=== PATIENT | male | born 2000 | race Caucasian/White ===

== ENCOUNTER 2024-07-15 08:04 | Outpatient (OUT) | payer BC, SELFPAY ==
--- NOTE | 2024-07-15 08:09 | CA_ITS ---
Patient Name: CLOVER JEAN MR#: [id number] : 2000 Exam Date: 07/15/2024 Ordering Doctor: DR Michelle Shipley M.D. ECHOCARDIOGRAM REPORT PROCEDURE: CA ECHO DOPPLER COMPLETE INDICATIONS: Syncope COMPARISON: None. DESCRIPTION: COMPLETE ECHOCARDIOGRAM Real-time transthoracic echocardiography with 2D, M-mode, spectral and color flow Doppler performed. QUALITY: Technical quality was good. LEFT VENTRICLE: Normal chamber size. Normal left ventricular wall thickness. Global left ventricular systolic function is normal. LV EF: Estimated left ventricular ejection fraction is 60% DIASTOLIC: Normal diastolic function. ATRIAL SEPTUM: LEFT ATRIUM: Normal chamber size. RIGHT ATRIUM: Normal chamber size. RIGHT VENTRICLE: Normal chamber size. Normal right ventricular systolic function. TRICUSPID VALVE: Normal mobility and thickness. No stenosis with trivial regurgitation. No evidence of pulmonary hypertension. RVSP 20 mmHg MITRAL VALVE: Normal mobility and thickness. No evidence of mitral valve stenosis. There is no mitral annular calcification. Trivial mitral regurgitation. AORTIC VALVE: Normal trileaflet appearance. Normal leaflet mobility. No evidence of aortic valve stenosis. No aortic regurgitation. AORTIC ROOT: Normal diameter and appearance. PULMONIC VALVE: Normal thickness and mobility. No stenosis. Trivial regurgitation. PERICARDIUM: Trivial pericardial effusion. IVC: Collapses with inspirations. Normal size. PLEURA: CONCLUSION: 1. Normal left ventricular size and systolic function. LVEF is estimated at 60%. 2. Normal right ventricular size and systolic function. 3. Normal diastolic function. 4. No significant valvular dysfunction. 5. Normal right-sided pressures. 6. Trivial pericardial effusion. Adult Echocardiography Procedure Report Left Ventricle LVEDD (3.7 - 5.6 cm): 5.07 cm LVESD (2.2 - 4.0 cm): 3.66 cm LVIVS thickness (0.6 - 1.2 cm): 0.88 cm LVPW thickness (0.5 - 1.0 cm): 1.02 cm e': 0.15 m/s E - e': 3.68 LVOT Max Gradient: 2.14 mm[Hg] LVOT Area (cm2): 0.73 m/s Peak Velocity (LVOT): 0.73 m/s Mean Velocity (LVOT): 0.52 m/s LVOT Diameter 2.25 cm Left Ventricular Ejection Fraction: 60 % Left Atrium LA Volume Index (2D A2C): 29.23 ml/m2 Left Atrium Systolic Dimension: 3.13 cm Mitral Valve MV E to A Ratio: 1.96 Mitral Valve A-Wave Peak Velocity: 0.28 m/s Mitral Valve E-Wave Peak Velocity: 0.55 m/s Right Ventricle RV Internal Diastolic Dimension: 3.67 cm Aorta AO Root Diam: 3.13 cm Ascending Ao Diam: 2.46 cm Aortic Valve AoV Area (Peak Tariq): 3.18 cm2, 3.18 cm2 AoV Area (VTI): 3.18 cm2, 3.18 cm2 Peak Velocity(Antegrade Flow): 0.91 m/s Peak Gradient(Antegrade Flow): 3.31 mm[Hg] Mean Velocity(Antegrade Flow): 0.66 m/s Mean Gradient(Antegrade Flow): 1.99 mm[Hg] Velocity Time Integral: 19.40 cm Tricuspid Valve Peak Velocity (Regurgitant Flow): 1.95 m/s, 2.06 m/s Pulmonic Valve Mean Gradient: 2.04 mm[Hg], 1.72 mm[Hg] Mean Velocity: 0.67 m/s, 0.63 m/s Peak Velocity: 0.86 m/s Peak Gradient: 3.21 mm[Hg], 2.67 mm[Hg] Right Atrium Right Atrium Systolic Pressure: 66.19 ml, 66.19 ml Dictated by: Emory Jimenez M.D. on 07/15/2024 at 19:38 Approved by: Emory Jimenez M.D. on 07/15/2024 at 19:41
--- NOTE | 2024-07-15 08:09 | ECG_ITS ---
The [facility] Test Date: 2024-07-15 Pat Name: CLOVER JEAN Department: Room: - Gender: Male Wrapper Hand: : 2000 Requested By: ION CHONG Order Number: [id number] Reading MD: MAYA LE Measurements Intervals [place] Rate: 54 P: 62 IN: 162 QRS: 89 QRSD: 105 T: 72 QT: 391 QTc: 371 Interpretive Statements SINUS BRADYCARDIA WITH SINUS ARRHYTHMIA EARLY REPOLARIZATION [ST ELEVATION WITH NORMALLY INFLECTED T WAVE] Electronically Signed On 07-15-2024 19:41:49 EST by MAYA LE
== END 2024-07-15 08:05 | disposition home or self-care (01) ==
LOC: CARD 08:04
PROVIDERS: PCP Family Medicine; Visit Provider Family Medicine
DX: R55 Syncope and collapse (principal)
CPT/HCPCS: 93005; 93306

== ENCOUNTER 2024-11-19 08:16 | Emergency (ER) | payer BC, SELFPAY ==
[2024-11-19 08:19] VITALS: BP 112/82; PULSE 87; TEMP 36.6; O2SAT 98; BMI 25.7
--- NOTE | 2024-11-19 08:26 | CT_ITS ---
The [address] [address] Patient Name: CLOVER JEAN MRN: [id number] date: 2000 Sex: M Assigned Patient Location: ED.MAIN Current Patient Location: ER Accession/Order Number: [id number] Exam Date: 11/19/2024 09:23 Report Date: 11/19/2024 09:47 At the request of: BRUNILDA COHN DO Procedure: CT cervical spine wo con CLINICAL DATA: Throbbing headache for the past [address] BRAIN WITHOUT CONTRAST: COMPARISON: None TECHNIQUE: Contiguous axial unenhanced images were obtained through the brain. This CT exam was performed using one or more following dose reduction techniques: Automated exposure control, adjustment of the mA and/or kV according to patient size, or use of iterative reconstruction technique. FINDINGS: The ventricles are normal in size and position. There are no areas of abnormal attenuation. There is no hemorrhage, mass effect or extra-axial collections. The imaged paranasal sinuses and mastoid air cells are clear. CT/CT head/brain wo con IMPRESSION: NO ACUTE INTRACRANIAL ABNORMALITY. CTA OF THE [place] WITH CONTRAST COMPARISON: None Spiral images were obtained through the [place] following 100 mL of Omnipaque 350. Sagittal, coronal and 3-D volume rendered reconstructions were reviewed. This CT exam was performed using one or more following dose reduction techniques: Automated exposure control, adjustment of the mA and/or kV according to patient size, or use of iterative reconstruction technique. The right vertebral artery tapers slightly before the confluence. The imaged vertebral, basilar and posterior cerebral arteries are otherwise unremarkable. The carotid siphons are patent. The anterior and middle cerebral arteries are within normal limits for caliber, without focal stenosis or suspected thrombosis. No aneurysms are identified. The dural venous sinuses are patent. IMPRESSION: NO SIGNIFICANT VASCULAR FINDINGS. CT CERVICAL SPINE WITHOUT CONTRAST WITH 3D RECONSTRUCTIONS: COMPARISON: None TECHNIQUE: Spiral axial unenhanced images were obtained through the cervical spine. Sagittal, coronal and 3D volume-rendered reconstructions were also reviewed. This CT exam was performed using one or more following dose reduction techniques: Automated exposure control, adjustment of the mA and/or kV according to patient size, or use of iterative reconstruction technique. FINDINGS: There is subtle levoscoliotic curvature. Alignment is maintained in the sagittal plane. No fractures are identified. There is minor asymmetric hypertrophy toward the right neural foramen at C2-3. There is associated mild to moderate foraminal encroachment. At C3-4, there is mild disco-osteophytic bulging which is asymmetric toward the right. There is additional mild to moderate foraminal encroachment at that site. The atlantoaxial relationship is maintained. No prevertebral soft tissue swelling is seen. [place] cervical lymph nodes are present. The upper imaged lungs show mild scarring. IMPRESSION: MINOR DEGENERATIVE CHANGES. NO ACUTE BONY INJURY. Impression dictated by: Edith Dc M.D.11/19/2024 9:47 AM Dictation Location: [place] [address] Electronically authenticated by: [id number] Y Date: 11/19/2024 09:47
--- NOTE | 2024-11-19 08:26 | CT_ITS ---
The [address] [address] Patient Name: CLOVER JEAN MRN: [id number] date: 2000 Sex: M Assigned Patient Location: ED.MAIN Current Patient Location: ER Accession/Order Number: [id number] Exam Date: 11/19/2024 09:23 Report Date: 11/19/2024 09:47 At the request of: BRUNILDA COHN DO Procedure: CT cervical spine wo con CLINICAL DATA: Throbbing headache for the past [address] BRAIN WITHOUT CONTRAST: COMPARISON: None TECHNIQUE: Contiguous axial unenhanced images were obtained through the brain. This CT exam was performed using one or more following dose reduction techniques: Automated exposure control, adjustment of the mA and/or kV according to patient size, or use of iterative reconstruction technique. FINDINGS: The ventricles are normal in size and position. There are no areas of abnormal attenuation. There is no hemorrhage, mass effect or extra-axial collections. The imaged paranasal sinuses and mastoid air cells are clear. CT/CT cervical spine wo con IMPRESSION: NO ACUTE INTRACRANIAL ABNORMALITY. CTA OF THE [place] WITH CONTRAST COMPARISON: None Spiral images were obtained through the [place] following 100 mL of Omnipaque 350. Sagittal, coronal and 3-D volume rendered reconstructions were reviewed. This CT exam was performed using one or more following dose reduction techniques: Automated exposure control, adjustment of the mA and/or kV according to patient size, or use of iterative reconstruction technique. The right vertebral artery tapers slightly before the confluence. The imaged vertebral, basilar and posterior cerebral arteries are otherwise unremarkable. The carotid siphons are patent. The anterior and middle cerebral arteries are within normal limits for caliber, without focal stenosis or suspected thrombosis. No aneurysms are identified. The dural venous sinuses are patent. IMPRESSION: NO SIGNIFICANT VASCULAR FINDINGS. CT CERVICAL SPINE WITHOUT CONTRAST WITH 3D RECONSTRUCTIONS: COMPARISON: None TECHNIQUE: Spiral axial unenhanced images were obtained through the cervical spine. Sagittal, coronal and 3D volume-rendered reconstructions were also reviewed. This CT exam was performed using one or more following dose reduction techniques: Automated exposure control, adjustment of the mA and/or kV according to patient size, or use of iterative reconstruction technique. FINDINGS: There is subtle levoscoliotic curvature. Alignment is maintained in the sagittal plane. No fractures are identified. There is minor asymmetric hypertrophy toward the right neural foramen at C2-3. There is associated mild to moderate foraminal encroachment. At C3-4, there is mild disco-osteophytic bulging which is asymmetric toward the right. There is additional mild to moderate foraminal encroachment at that site. The atlantoaxial relationship is maintained. No prevertebral soft tissue swelling is seen. [place] cervical lymph nodes are present. The upper imaged lungs show mild scarring. IMPRESSION: MINOR DEGENERATIVE CHANGES. NO ACUTE BONY INJURY. Impression dictated by: Edith Dc M.D.11/19/2024 9:47 AM Dictation Location: [place] [address] Electronically authenticated by: [id number] Y Date: 11/19/2024 09:47
--- OUTSIDE RECORDS SUMMARY | 2024-11-19 08:31 | XMS_ITS | CCD ---
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 - 36.5 g/dL [facility] MCV (RBC) [Entitic vol] 88.5 fL 79.0 - 94.5 fL [facility] Monocytes (Bld) [#/Vol] 0.99 10*3/uL High 0.24 - 0.93 K/uL [facility] Monocytes/100 WBC (Bld) 14.0 % [facility] Neutrophils (Bld) [#/Vol] 3.76 10*3/uL 1.57 - 6.19 K/uL [facility] Nucleated RBC/100 WBC (Bld) [Ratio] 0.0 % NINF [facility] Platelet mean volume (Bld) [Entitic vol] 9.0 fL 8.7 - 12.3 fL [facility] Platelets (Bld) [#/Vol] 226 10*3/uL 146 - 337 K/uL [facility] RBC (Bld) [#/Vol] 4.70 10*6/uL [facility] Segmented neutrophils/100 WBC (Bld) 53.1 % [facility] WBC (Bld) [#/Vol] 7.09 10*3/uL 3.73 - 10. 10 K/uL [facility] Basophils (Bld) [#/Vol] 0.06 10*3/uL Normal 0.00-0.09 [facility] Comment on above: Performed By: #### L [id number] #### [facility] (DEFAULT) [address] [place] [address] 40998 Basophils/100 WBC (Bld) 0.8 % Normal [facility] Comment on above: Performed By: #### L [id number] #### [facility] (DEFAULT) [address] [place] [address] 28230 DIFF STATUS Electronic Differential Normal [facility] Comment on above: Performed By: #### L [id number] #### [facility] (DEFAULT) [address] [address] Eosinophils (Bld) [#/Vol] 0.23 10*3/uL Normal 0.00-0.48 [facility] Comment on above: Performed By: #### L [id number] #### [facility] (DEFAULT) [address] [address] Eosinophils/100 WBC (Bld) 3.2 % Normal [facility] Comment on above: Performed By: #### L [id number] #### [facility] (DEFAULT) [address] [address] Hematocrit (Bld) [Volume fraction] 41.6 % Normal 39.6-48.8 [facility] Comment on above: Performed By: #### L [id number] #### [facility] (DEFAULT) [address] [address] Hemoglobin (Bld) [Mass/Vol] 13.8 g/dL Normal 13.4-16.8 [facility] Comment on above: Performed By: #### L [id number] #### [facility] (DEFAULT) [address] [address] Immature Grans % 1.1 % Normal [facility] Comment on above: Performed By: #### L [id number] #### [facility] (DEFAULT) [address] [address] Immature Grans Absolute 0.08 K/uL High <=0.07 [facility] Comment on above: Performed By: #### L [id number] #### [facility] (DEFAULT) [address] [address] Lymphocytes (Bld) [#/Vol] 1.97 10*3/uL Normal 0.83-3.57 [facility] Comment on above: Performed By: #### L [id number] #### U [facility] (DEFAULT) [address] [place] [address] 23331 Lymphocytes/100 WBC (Bld) 27.8 % Normal [facility] Comment on above: Performed By: #### L [id number] #### U [facility] (DEFAULT) [address] [place] [address] 58765 MCV (RBC) [Entitic vol] 88.5 fL Normal 79.0-94.5 [facility] Comment on above: Performed By: #### L [id number] #### [facility] (DEFAULT) [address] [place] [address] 87064 Mean Cell Hgb 29.4 pg Normal 26.1-33.3 [facility] Comment on above: Performed By: #### L [id number] #### [facility] (DEFAULT) [address] [place] [address] 80120 Mean Cell Hgb Conc 33.2 g/dL Normal 31.9-36.5 [facility] Comment on above: Performed By: #### L [id number] #### [facility] (DEFAULT) [address] [place] [address] 73002 Monocytes (Bld) [#/Vol] 0.99 10*3/uL High 0.24-0.93 [facility] Comment on above: Performed By: #### L [id number] #### [facility] (DEFAULT) [address] [place] [address] 26931 Monocytes/100 WBC (Bld) 14.0 % Normal [facility] Comment on above: Performed By: #### L [id number] #### [facility] (DEFAULT) [address] [place] [address] 00841 Nucleated RBC 0.0 /100 WBC Normal <=0.2 [facility] Comment on above: Performed By: #### L [id number] #### [facility] (DEFAULT) [address] [place] [address] 72609 Platelet mean volume (Bld) [Entitic vol] 9.0 fL Normal 8.7-12.3 [facility] Comment on above: Performed By: #### L [id number] #### [facility] (DEFAULT) [address] [place] [address] 22117 Platelets (Bld) [#/Vol] 226 10*3/uL Normal 146-337 [facility] Comment on above: Performed By: #### L [id number] #### [facility] (DEFAULT) [address] [place] [address] 92183 RBC (Bld) [#/Vol] 4.70 10*6/uL Normal 4.38-5.83 [facility] Comment on above: Performed By: #### L [id number] #### [facility] (DEFAULT) [address] [place] [address] 41896 RBC Distribution 12.1 % Normal 10.9-14.3 [facility] Comment on above: Performed By: #### L [id number] #### [facility] (DEFAULT) [address] [place] [address] 88594 Segs + Bands Auto 53.1 % Normal [facility] Comment on above: Performed By: #### L [id number] #### [facility] (DEFAULT) [address] [place] [address] 71241 Segs + Bands,Absolute Auto 3.76 K/uL Normal 1.57-6.19 [facility] Comment on above: Performed By: #### L [id number] #### [facility] (DEFAULT) [address] [place] [address] 75987 WBC (Bld) [#/Vol] 7.09 10*3/uL Normal 3.73-10.10 [facility] Comment on above: Performed By: #### L [id number] #### [facility] (DEFAULT) [address] [address] CHEM 7 (LYTES,BUN,CREA,GLUC) on 05-27-2024 Anion gap [Moles/Vol] 13 mmol/L 7 - 17 mmol/L [facility] Chloride [Moles/Vol] 106 mmol/L 98 - 108 mmol/L [facility] CO2 [Moles/Vol] 24 mmol/L 21 - 31 mmol/L [facility] Creatinine [Mass/Vol] 1.01 mg/dL 0.70 - 1.30 mg/dL [facility] eGFR, CKD-EPI, Male - PINF [facility] Comment on above: Reported eGFR is bas ed on the CKD-EPI 2020 equation using creatinine, age, and sex. Glucose [Mass/Vol] 101 mg/dL High 70 - 99 mg/dL [facility] Interpretation and review of laboratory results Abnormal [facility] Osmolality Calc [Osmolality] 289 [facility] Potassium [Moles/Vol] 3.9 mmol/L 3.5 - 5.0 mmol/L [facility] Sodium [Moles/Vol] 139 mmol/L 135 - 145 mmol/L [facility] Urea nitrogen [Mass/Vol] 8 mg/dL 7 - 25 mg/dL [facility] Urea nitrogen/Creatinine [Mass ratio] 8 mg/mg [facility] Anion gap [Moles/Vol] 13 mmol/L Normal 7-17 [facility] Comment on above: Performed By: #### C HM7 #### [facility] (DEFAULT) [address] [place] [address] 56151 Chloride [Moles/Vol] 106 mmol/L Normal 98-108 [facility] Comment on above: Performed By: #### C HM7 #### [facility] (DEFAULT) [address] [place] [address] CO2 [Moles/Vol] 24 mmol/L Normal 21-31 [facility] Comment on above: Performed By: #### C HM7 #### [facility] (DEFAULT) [address] [place] [address] Creatinine [Mass/Vol] 1.01 mg/dL Normal 0.70-1.30 [facility] Comment on above: Performed By: #### C HM7 #### [facility] (DEFAULT) [address] [place] [address] 41287 eGFR, CKD-EPI, Male > Normal >=60 [facility] Comment on above: Result Comment: Repo rted eGFR is based on the CKD-EPI 1 equation using creatinine, age, and sex. Performed By: #### C HM7 #### [facility] (DEFAULT) [address] [place] [address] 56550 Glucose [Mass/Vol] 101 mg/dL High 70-99 [facility] Comment on above: Performed By: #### C HM7 #### U [facility] (DEFAULT) [address] [place] [address] 03322 Osmolality [Osmolality] 289 mosm/kg Normal 278-305 [facility] Comment on above: Performed By: #### C HM7 #### [facility] (DEFAULT) [address] [place] [address] 90404 Potassium [Moles/Vol] 3.9 mmol/L Normal 3.5-5.0 [facility] Comment on above: Performed By: #### C HM7 #### [facility] (DEFAULT) [address] [place] [address] 37790 Sodium [Moles/Vol] 139 mmol/L Normal 135-145 [facility] Comment on above: Performed By: #### C HM7 #### U [facility] (DEFAULT) [address] [place] [address] 32088 Urea nitrogen [Mass/Vol] 8 mg/dL Normal 7-25 [facility] Comment on above: Performed By: #### C HM7 #### [facility] (DEFAULT) [address] [place] [address] 52254 Urea nitrogen/Creatinine [Mass ratio] 8 mg/mg Normal [facility] Comment on above: Performed By: #### C HM7 #### [facility] (DEFAULT) [address] [place] [address] 72662 VANCOMYCIN LEVEL, TROUGH (VT E DRUG LEVEL)on 05-27-2024 Interpretation and review of laboratory results Abnormal [facility] Vancomycin trough [Mass/Vol] 6.2 ug/mL Low Therapeutic Range: 10.0-20.0 mcg/mL mcg/mL [facility] Vancomycin, Trough 6.2 mcg/mL Low Therapeut ic Range: 10.0-20.0 mcg/mL [facility] Comment on above: Order Comment: Pleas e draw level at specified interval PRIOR to next dose. Performed By: #### V ANCTR #### [facility] (DEFAULT) [address] [address] ANAEROBE CULTUREon 4 Bacteria identified Cx Nom (Unsp spec) No anaerobic growth Normal [facility] Comment on above: Order Comment: Colle ct fluids or tissues in a sterile container. If collecting swabs, must be collected in a Port-A-Cul tube. Performed By: #### L [id number] #### [facility] (DEFAULT) [address] [address] BACTERIAL CULTURE AND DIRECT SMEAR, LESION, TISSUE, DEVICEon 05-26-2024 Clindamycin [Susceptibility] 0.25 ug/mL Invalid Interpretation Code [facility] Comment on above: Performed By: #### L [id number] #### [facility] (DEFAULT) [address] [address] Oxacillin [Susceptibility] by Minimum inhibitory concentration (SINGH) 0.5 ug/mL Invalid Interpretation Code [facility] Comment on above: Performed By: #### L [id number] #### [facility] (DEFAULT) [address] [address] rifAMPin [Susceptibility] by Minimum inhibitory concentration (SINGH) <= Invalid Interpretation Code [facility] Comment on above: Result Comment: Rifa mpin must never be used as monotherapy for Staphylococcal infection because of the rapid emergence of resistance. Performed By: #### L [id number] #### [facility] (DEFAULT) [address] [address] Tetracycline [Susceptibility] <= Invalid Interpretation Code [facility] Comment on above: Result Comment: Doxy cycline/minocycline S. aureus susceptibility can be inferred from the tetracycline SINGH when tetracycline susceptible Performed By: #### L [id number] #### [facility] (DEFAULT) [address] [place] [address] 71639 Trimethoprim+Sulfam ethoxazole [Susceptibility] <= Invalid Interpretation Code [facility] Comment on above: Performed By: #### L [id number] #### [facility] (DEFAULT) [address] [place] [address] 33434 C REACTIVE PROTEINon 024 CRP High sensitivity method [Mass/Vol] 56.40 mg/L High NINF - 10.00 mg/L [facility] Interpretation and review of laboratory results Abnormal [facility] CRP [Mass/Vol] 56.40 mg/L High <10.00 [facility] Comment on above: Performed By: #### C RP #### [facility] (DEFAULT) [address] [address] CBC AND ELECTRONIC DIFFon Basophils (Bld) [#/Vol] 0.09 10*3/uL 0.00 - 0.09 K/uL [facility] Basophils/100 WBC (Bld) 1.2 % [facility] Differential cell count method Nom (Bld) Electronic Differential [facility] Eosinophils (Bld) [#/Vol] 0.26 10*3/uL 0.00 - 0.48 K/uL [facility] Eosinophils/100 WBC (Bld) 3.5 % [facility] Erythrocyte distribution width (RBC) [Ratio] 12.1 % 10.9 - 14.3 % [facility] Hematocrit (Bld) [Volume fraction] 42.0 % 39.6 - 48.8 % [facility] Hemoglobin (Bld) [Mass/Vol] 14.2 g/dL 13.4 - 16.8 g/dL [facility] Immature granulocytes (Bld) [#/Vol] K/uL NINF - 0.07 K/uL [facility] Immature granulocytes/100 WBC (Bld) 0.3 % [facility] Interpretation and review of laboratory results Abnormal [facility] Lymphocytes (Bld) [#/Vol] 2.14 10*3/uL 0.83 - 3.57 K/uL [facility] Lymphocytes/100 WBC (Bld) 29.1 % [facility] MCH (RBC) [Entitic mass] 29.6 pg 26.1 - 33.3 pg [facility] MCHC (RBC) [Mass/Vol] 33.8 g/dL 31.9 - 36.5 g/dL [facility] MCV (RBC) [Entitic vol] 87.7 fL 79.0 - 94.5 fL [facility] Monocytes (Bld) [#/Vol] 0.98 10*3/uL High 0.24 - 0.93 K/uL [facility] Monocytes/100 WBC (Bld) 13.3 % [facility] Neutrophils (Bld) [#/Vol] 3.86 10*3/uL 1.57 - 6.19 K/uL [facility] Nucleated RBC/100 WBC (Bld) [Ratio] 0.0 % [facility] Platelet mean volume (Bld) [Entitic vol] 9.2 fL 8.7 - 12.3 fL [facility] Platelets (Bld) [#/Vol] 233 10*3/uL 146 - 337 K/uL [facility] RBC (Bld) [#/Vol] 4.79 10*6/uL [facility] Segmented neutrophils/100 WBC (Bld) 52.6 % [facility] WBC (Bld) [#/Vol] 7.35 10*3/uL 3.73 - 10. 10 K/uL [facility] Basophils (Bld) [#/Vol] 0.09 10*3/uL Normal 0.00-0.09 [facility] Comment on above: Performed By: #### L [id number] #### [facility] (DEFAULT) [address] [place] [address] 41486 Basophils/100 WBC (Bld) 1.2 % Normal [facility] Comment on above: Performed By: #### L [id number] #### [facility] (DEFAULT) [address] [place] [address] 64633 DIFF STATUS Electronic Differential Normal [facility] Comment on above: Performed By: #### L [id number] #### [facility] (DEFAULT) [address] [place] [address] 04881 Eosinophils (Bld) [#/Vol] 0.26 10*3/uL Normal 0.00-0.48 [facility] Comment on above: Performed By: #### L [id number] #### [facility] (DEFAULT) [address] [place] [address] 14097 Eosinophils/100 WBC (Bld) 3.5 % Normal [facility] Comment on above: Performed By: #### L [id number] #### [facility] (DEFAULT) [address] [place] [address] 05751 Hematocrit (Bld) [Volume fraction] 42.0 % Normal 39.6-48.8 [facility] Comment on above: Performed By: #### L [id number] #### [facility] (DEFAULT) [address] [place] [address] 77501 Hemoglobin (Bld) [Mass/Vol] 14.2 g/dL Normal 13.4-16.8 [facility] Comment on above: Performed By: #### L [id number] #### [facility] (DEFAULT) [address] [address] Immature Grans % 0.3 % Normal [facility] Comment on above: Performed By: #### L [id number] #### U [facility] (DEFAULT) [address] [place] [address] 81068 Immature Grans Absolute < Normal <=0.07 [facility] Comment on above: Performed By: #### L [id number] #### [facility] (DEFAULT) [address] [place] [address] 08894 Lymphocytes (Bld) [#/Vol] 2.14 10*3/uL Normal 0.83-3.57 [facility] Comment on above: Performed By: #### L [id number] #### [facility] (DEFAULT) [address] [address] Lymphocytes/100 WBC (Bld) 29.1 % Normal [facility] Comment on above: Performed By: #### L [id number] #### [facility] (DEFAULT) [address] [address]24[address] MCV (RBC) [Entitic vol] 87.7 fL Normal 79.0-94.5 [facility] Comment on above: Performed By: #### L [id number] #### [facility] (DEFAULT) [address] [address] Mean Cell Hgb 29.6 pg Normal 26.1-33.3 [facility] Comment on above: Performed By: #### L [id number] #### [facility] (DEFAULT) [address] [address] Mean Cell Hgb Conc 33.8 g/dL Normal 31.9-36.5 [facility] Comment on above: Performed By: #### L [id number] #### [facility] (DEFAULT) [address] [address] Monocytes (Bld) [#/Vol] 0.98 10*3/uL High 0.24-0.93 [facility] Comment on above: Performed By: #### L [id number] #### [facility] (DEFAULT) [address] [address] Monocytes/100 WBC (Bld) 13.3 % Normal [facility] Comment on above: Performed By: #### L [id number] #### [facility] (DEFAULT) [address] [place] [address] 79191 Nucleated RBC 0.0 /100 WBC Normal <=0.2 [facility] Comment on above: Performed By: #### L [id number] #### U [facility] (DEFAULT) [address] [address] Platelet mean volume (Bld) [Entitic vol] 9.2 fL Normal 8.7-12.3 [facility] Comment on above: Performed By: #### L [id number] #### [facility] (DEFAULT) [address] [address] Platelets (Bld) [#/Vol] 233 10*3/uL Normal 146-337 [facility] Comment on above: Performed By: #### L [id number] #### [facility] (DEFAULT) [address] [address] RBC (Bld) [#/Vol] 4.79 10*6/uL Normal 4.38-5.83 [facility] Comment on above: Performed By: #### L [id number] #### [facility] (DEFAULT) [address] [address] RBC Distribution 12.1 % Normal 10.9-14.3 [facility] Comment on above: Performed By: #### L [id number] #### [facility] (DEFAULT) [address] [address] Segs + Bands Auto 52.6 % Normal [facility] Comment on above: Performed By: #### L [id number] #### [facility] (DEFAULT) [address] [address] Segs + Bands,Absolute Auto 3.86 K/uL Normal 1.57-6.19 [facility] Comment on above: Performed By: #### L [id number] #### [facility] (DEFAULT) [address] [address] WBC (Bld) [#/Vol] 7.35 10*3/uL Normal 3.73-10.10 [facility] Comment on above: Performed By: #### L [id number] #### [facility] (DEFAULT) [address] [place] [address] COMPREHENSIVE METABOLIC PANE [facility] 05-26-2024 Albumin [Mass/Vol] 4.1 g/dL 3.5 - 5.0 g/dL [facility] ALP [Catalytic activity/Vol] 83 U/L 32 - 126 U/L [facility] ALT [Catalytic activity/Vol] 26 U/L 10 - 52 U/L [facility] Anion gap [Moles/Vol] 11 mmol/L 7 - 17 mmol/L [facility] AST [Catalytic activity/Vol] 14 U/L 10 - 39 U/L [facility] Bilirubin [Mass/Vol] 0.5 mg/dL NINF - 1.5 mg/dL [facility] Calcium [Mass/Vol] 9.1 mg/dL 8.6 - 10. 5 mg/dL [facility] Chloride [Moles/Vol] 104 mmol/L 98 - 108 mmol/L [facility] CO2 [Moles/Vol] 28 mmol/L 21 - 31 mmol/L [facility] Creatinine [Mass/Vol] 1.00 mg/dL 0.70 - 1.30 mg/dL [facility] eGFR, CKD-EPI, Male - PINF [facility] Comment on above: Reported eGFR is bas ed on the CKD-EPI 2020 equation using creatinine, age, and sex. Glucose [Mass/Vol] 88 mg/dL 70 - 99 mg/dL [facility] Osmolality Calc [Osmolality] 289 [facility] Potassium [Moles/Vol] 3.7 mmol/L 3.5 - 5.0 mmol/L [facility] Protein [Mass/Vol] 6.9 g/dL 6.4 - 8.3 g/dL [facility] Sodium [Moles/Vol] 139 mmol/L 135 - 145 mmol/L [facility] Urea nitrogen [Mass/Vol] 12 mg/dL 7 - 25 mg/dL [facility] Urea nitrogen/Creatinine [Mass ratio] 12 mg/mg [facility] Albumin [Mass/Vol] 4.1 g/dL Normal 3.5-5.0 [facility] Comment on above: Performed By: #### C MPN #### [facility] (DEFAULT) [address] [place] [address] ALP [Catalytic activity/Vol] 83 U/L Normal 32-126 [facility] Comment on above: Performed By: #### C MPN #### [facility] (DEFAULT) [address] [place] [address] ALT [Catalytic activity/Vol] 26 U/L Normal 10-52 [facility] Comment on above: Performed By: #### C MPN #### [facility] (DEFAULT) [address] [place] [address]1570 Anion gap [Moles/Vol] 11 mmol/L Normal 7-17 [facility] Comment on above: Performed By: #### C MPN #### [facility] (DEFAULT) [address] [place] [address] 43758 AST [Catalytic activity/Vol] 14 U/L Normal 10-39 [facility] Comment on above: Performed By: #### C MPN #### [facility] (DEFAULT) [address] [place] [address] 46074 Bilirubin [Mass/Vol] 0.5 mg/dL Normal <1.5 [facility] Comment on above: Performed By: #### C MPN #### [facility] (DEFAULT) [address] [place] [address] 58061 Calcium [Mass/Vol] 9.1 mg/dL Normal 8.6-10.5 [facility] Comment on above: Performed By: #### C MPN #### [facility] (DEFAULT) [address] [place] [address] 74331 Chloride [Moles/Vol] 104 mmol/L Normal 98-108 [facility] Comment on above: Performed By: #### C MPN #### [facility] (DEFAULT) [address] [place] [address] 84168 CO2 [Moles/Vol] 28 mmol/L Normal 21-31 [facility] Comment on above: Performed By: #### C MPN #### [facility] (DEFAULT) [address] [place] [address] 54881 Creatinine [Mass/Vol] 1.00 mg/dL Normal 0.70-1.30 [facility] Comment on above: Performed By: #### C MPN #### [facility] (DEFAULT) [address] [place] [address] 59442 eGFR, CKD-EPI, Male > Normal >=60 [facility] Comment on above: Result Comment: Repo rted eGFR is based on the CKD-EPI 2020 equation using creatinine, age, and sex. Performed By: #### C MPN #### [facility] (DEFAULT) [address] [place] [address] 51621 Glucose [Mass/Vol] 88 mg/dL Normal 70-99 [facility] Comment on above: Performed By: #### C MPN #### [facility] (DEFAULT) [address] [place] [address] 26215 Osmolality [Osmolality] 289 mosm/kg Normal 278-305 [facility] Comment on above: Performed By: #### C MPN #### [facility] (DEFAULT) [address] [place] [address] 04620 Potassium [Moles/Vol] 3.7 mmol/L Normal 3.5-5.0 [facility] Comment on above: Performed By: #### C MPN #### [facility] (DEFAULT) [address] [place] [address] 32364 Protein [Mass/Vol] 6.9 g/dL Normal 6.4-8.3 [facility] Comment on above: Performed By: #### C MPN #### [facility] (DEFAULT) [address] [place] [address] 70094 Sodium [Moles/Vol] 139 mmol/L Normal 135-145 [facility] Comment on above: Performed By: #### C MPN #### [facility] (DEFAULT) [address] [place] [address] 44213 Urea nitrogen [Mass/Vol] 12 mg/dL Normal 7-25 [facility] Comment on above: Performed By: #### C MPN #### [facility] (DEFAULT) [address] [place] [address] 72207 Urea nitrogen/Creatinine [Mass ratio] 12 mg/mg Normal [facility] Comment on above: Performed By: #### C MPN #### [facility] (DEFAULT) [address] [place] [address] 52428 FUNGUS CULTUREon 05-26-2024 Bacteria identified Cx Nom (Unsp spec) NO GROWTH DAY 28 OF 28 Normal [facility] Comment on above: Performed By: #### F UN #### [facility] (DEFAULT) [address] [place] [address] 84586 SEDIMENTATION RATE, AUTOMATE Don 05-26-2024 ESR (Bld) [Velocity] 13 [facility] and review of laboratory results Normal [facility] ESR Westergren 13 mm/hr Normal <15 [facility] Comment on above: Performed By: #### E SR #### [facility] (DEFAULT) [address] [place] [address] 96454 C-Reactive Proteinon 024 CRP [Mass/Vol] 61.0 mg/L High 0.0-5.0 [facility] Comment on above: Performed By: #### D DANIELLE, CRP, MG, CDP, CP #### [facility] [address] [place] [address] [employer] Net Developer: Dequan Lewis MD CBC with Diffon 05-25-2024 Abs. Basophil 0.06 k/uL Normal 0.00-0.20 [facility] Comment on above: Performed By: #### D DANIELLE, CRP, MG, CDP, CP #### [address] [place], [place] [address] [employer] Developer: Dequan Lewis MD Abs.Imm.Granulocyte <0.03 Normal 0.00-0.30 [facility] Comment on above: Performed By: #### D DANIELLE, CRP, MG, CDP, CP #### [address] [place], [place] [address] [employer] Developer: Dequan Lewis MD Abs.Neutrophil (Seg) 4.56 k/uL Normal 1.50-8.10 [facility] Comment on above: Performed By: #### D DANIELLE, CRP, MG, CDP, CP #### [address] [place] [address] [employer] Developer: Dequan Lewis MD Basophils/100 WBC (Bld) 1 % Normal 0-2 [facility] Comment on above: Performed By: #### D DANIELLE, CRP, MG, CDP, CP #### [address] [place], [place] [address] [employer] Developer: Dequan Lewis MD Eosinophils (Bld) [#/Vol] 0.23 10*3/uL Normal 0.00-0.44 [facility] Comment on above: Performed By: #### D DANIELLE, CRP, MG, CDP, CP #### [address] [place], [place] [address] [employer] Developer: Dequan Lewis MD Eosinophils/100 WBC (Bld) 3 % Normal 1-4 [facility] Comment on above: Performed By: #### D DANIELLE, CRP, MG, CDP, CP #### [address] [place], [facility] [employer] Developer: Dequan Lewis MD Erythrocyte distribution width (RBC) [Ratio] 12.1 % Normal 11.8-14.4 [facility] Comment on above: Performed By: #### D DANIELLE, CRP, MG, CDP, CP #### [facility] [address] [place], [place] [phone] [employer] Developer: Dequan Lewis MD Hematocrit (Bld) [Volume fraction] 42.5 % Normal 40.7-50.3 [facility] Comment on above: Performed By: #### D DANIELLE, CRP, MG, CDP, CP #### [address] [place], [facility] [employer] Developer: Dequan Lewis MD Hemoglobin (Bld) [Mass/Vol] 14.4 g/dL Normal 13.0-17.0 [facility] Comment on above: Performed By: #### D DANIELLE, CRP, MG, CDP, CP #### [address] [place], [facility] [employer] Developer: Dequan Lewis MD Immature granulocytes/100 WBC (Bld) 0 % Normal 0 [facility] Comment on above: Performed By: #### D DANIELLE, CRP, MG, CDP, CP #### [address] [place], [facility] [employer] Developer: Dequan Lewis MD Lymphocytes (Bld) [#/Vol] 1.82 10*3/uL Normal 1.10-3.70 [facility] Comment on above: Performed By: #### D DANIELLE, CRP, MG, CDP, CP #### [address] [place], [facility] [employer] Developer: Dequan Lewis MD Lymphocytes/100 WBC (Bld) 24 % Normal 24-43 [facility] Comment on above: Performed By: #### D DANIELLE, CRP, MG, CDP, CP #### [address] [place] [address] [employer] Developer: Dequan Lewis MD MCH (RBC) [Entitic mass] 29.9 pg Normal 25.2-33.5 [facility] Comment on above: Performed By: #### D DANIELLE, CRP, MG, CDP, CP #### [facility] [address] [place] [address] Dr[place], [place] [phone] [employer] Developer: Dequan Lewis MD MCHC (RBC) [Mass/Vol] 33.9 g/dL Normal 28.4-34.8 [facility] Comment on above: Performed By: #### D DANIELLE, CRP, MG, CDP, CP #### [facility] [address] [place] [address] Dr. [place], [facility] [employer] Developer: Dequan Lewis MD MCV (RBC) [Entitic vol] 88.2 fL Normal 82.6-102.9 [facility] Comment on above: Performed By: #### D DANIELLE, CRP, MG, CDP, CP #### [address] [place], [facility] [employer] Developer: Dequan Lewis MD Monocytes (Bld) [#/Vol] 0.90 10*3/uL Normal 0.10-1.20 [facility] Comment on above: Performed By: #### D DANIELLE, CRP, MG, CDP, CP #### [address] [place], [place] [phone] [employer] Developer: Dequan Lewis MD Monocytes/100 WBC (Bld) 12 % Normal 3-12 [facility] Comment on above: Performed By: #### D DANIELLE, CRP, MG, CDP, CP #### [address] [place] [address] [employer] Developer: Dequan Lewis MD Neutrophil (Seg) 60 % Normal 36-65 [facility] Comment on above: Performed By: #### D DANIELLE, CRP, MG, CDP, CP #### [address] [place] [address] [employer] Developer: Dequan Lewis MD NRBC Automated 0.0 per 100 WBC Normal 0.0 [facility] Comment on above: Performed By: #### D DANIELLE, CRP, MG, CDP, CP #### [facility] [address] [place] [address] Dr[place], [facility] [employer] Developer: Dequan Lewis MD Platelet mean volume (Bld) [Entitic vol] 9.3 fL Normal 8.1-13.5 [facility] Comment on above: Performed By: #### D DANIELLE, CRP, MG, CDP, CP #### [address] [place] [address] [employer] Developer: Dequan Lewis MD Platelets (Bld) [#/Vol] 215 10*3/uL Normal 138-453 [facility] Comment on above: Performed By: #### D DANIELLE, CRP, MG, CDP, CP #### [address] [place], [facility] [employer] Developer: eDquan Lewis MD RBC (Bld) [#/Vol] 4.82 10*6/uL Normal 4.21-5.77 [facility] Comment on above: Performed By: #### D DANIELLE, CRP, MG, CDP, CP #### [address] [place] [address] [employer] Developer: Dequan Lewis MD WBC (Bld) [#/Vol] 7.6 10*3/uL Normal 3.5-11.3 [facility] Comment on above: Performed By: #### D DANIELLE, CRP, MG, CDP, CP #### [address] [place] [address] [employer] Developer: Dequan Lewis MD CT RADIUS ULNA LEFT W CONTRA STon 05-25-2024 CT RADIUS ULNA LEFT W CONTRAST EXAMINATION: CT OF THE LEFT FOREARM WITH CONTRAST 05/25/2024 5:22 pm TECHNIQUE: CT of the left forearm was performed with the administration of intravenous contrast. Multiplanar reformatted images are provided for review. Automated exposure control, iterative reconstruction, and/or weight based adjustment of the mA/kV was utilized to reduce the radiation dose to as low as reasonably achievable. COMPARISON: None. HISTORY ORDERING SYSTEM PROVIDED HISTORY: post op erythema, sts pain TECHNOLOGIST PROVIDED HISTORY: post op erythema, sts pain Additional Contrast?->1 FINDINGS: Bones: No fracture or dislocation identified. No osseous erosion or periosteal reaction. Soft Tissue: Medial subcutaneous fat stranding at the level of the distal humerus. Circumferential subcutaneous fat stranding of the elbow extending into the mid forearm sparing the radial aspect. There is an elongated fluid collection in the subcutaneous fat overlying the proximal flexor musculature measuring approximately 5.2 x 3.2 x 1.9 cm. Edema is seen along the fascial plane between the superficial and deep volar compartments. No soft tissue gas identified. Joint: No elbow effusion or significant degenerative changes. No osteochondral lesion. IMPRESSION: 1. Circumferential subcutaneous fat stranding of the elbow extending into the mid forearm sparing the radial aspect compatible with cellulitis. 2. Elongated fluid collection in the subcutaneous fat overlying the proximal flexor musculature measuring 5.2 x 3.2 x 1.9 cm compatible with an abscess. 3. Edema along the fascial plane between the superficial and deep volar compartment musculature there is a possibility of fasciitis. No soft tissue gas identified to confirm a necrotizing process. Consider further evaluation with an MRI with and without contrast as clinically indicated. 4. No acute osseous abnormality. Interpreted by: Lauro Velázquez MD Signed by: Lauro Velázquez MD 05/25/24 Final result Normal [facility] Comp Metabolic Profon 2023 Albumin [Mass/Vol] 3.8 g/dL Normal 3.5-5.2 [facility] Comment on above: Performed By: #### D DANIELLE, CRP, MG, CDP, CP #### [facility] [address] [place] [address] [employer] Developer: Dequan Lewis MD Albumin/Glob Ratio 1.2 Normal 1.0-2.5 [facility] Comment on above: Performed By: #### D DANIELLE, CRP, MG, CDP, CP #### [facility] [address] [place] [address] [employer] Developer: Dequan Lewis MD Alkaline Phos 93 U/L Normal 40-129 [facility] Comment on above: Performed By: #### D DANIELLE, CRP, MG, CDP, CP #### [facility] [address] [place], [place] [phone] [employer] Developer: Dequan Lewis MD ALT [Catalytic activity/Vol] 28 U/L Normal 10-50 [facility] Comment on above: Performed By: #### D DANIELLE, CRP, MG, CDP, CP #### [facility] [address] [place], [place] [phone] [employer] Developer: Dequan Lewis MD Anion gap [Moles/Vol] 9 mmol/L Normal 9-16 [facility] Comment on above: Performed By: #### D DANIELLE, CRP, MG, CDP, CP #### [facility] [address] [place], [place] [phone] [employer] Developer: Dequan Lewis MD AST [Catalytic activity/Vol] 17 U/L Normal 10-50 [facility] Comment on above: Performed By: #### D DANIELLE, CRP, MG, CDP, CP #### [facility] [address] [place], [place] [phone] [employer] Developer: Dequan Lewis MD Bilirubin [Mass/Vol] 0.7 mg/dL Normal 0.00-1.20 [facility] Comment on above: Performed By: #### D DANIELLE, CRP, MG, CDP, CP #### [facility] [address] [place], [place] [phone] [employer] Developer: Dequan Lewis MD BUN/CRE Ratio 11 Normal 9-20 [facility] Comment on above: Performed By: #### D DANIELLE, CRP, MG, CDP, CP #### [facility] [address] [place], [place] [phone] [employer] Developer: Dequan Lewis MD Calcium [Mass/Vol] 9.5 mg/dL Normal 8.6-10.4 [facility] Comment on above: Performed By: #### D DANIELLE, CRP, MG, CDP, CP #### [facility] [address] [place] [address] [employer] Developer: Dequan Lewis MD Chloride [Moles/Vol] 103 mmol/L Normal 98-107 [facility] Comment on above: Performed By: #### D DANIELLE, CRP, MG, CDP, CP #### [facility] [address] [place] [address] [employer] Developer: Dequan Lewis MD CO2 [Moles/Vol] 27 mmol/L Normal 20-31 [facility] Comment on above: Performed By: #### D DANIELLE, CRP, MG, CDP, CP #### [facility] [address] [place] [address] [place] [address] [employer] Developer: Dequan Lewis MD Creatinine [Mass/Vol] 1.0 mg/dL Normal 0.70-1.20 [facility] Comment on above: Performed By: #### D DANIELLE, CRP, MG, CDP, CP #### [address] [place] [address] [employer] Developer: Dequan Lewis MD GFR/1.73 sq M.predicted among non-blacks MDRD (S/P/Bld) [Vol rate/Area] mL/min/{1.73_m2} Normal >60 [facility] Comment on above: Result Comment: These results are not intended for use in patients <18 years of age. eGFR results are calculated without a race factor using the 2020 CKD-EPI equation. Careful clinical correlation is recommended, particularly when comparing to results calculated using previous equations. The CKD-EPI equation is less accurate in patients with extremes of muscle mass, extra-renal metabolism of creatine, excessive creatine ingestion, or following therapy that affects renal tubular secretion. Performed By: #### D DANIELLE, CRP, MG, CDP, CP #### [facility] [address] [place], [place] [phone] [employer] Developer: Dequan Lewis MD Glucose [Mass/Vol] 88 mg/dL Normal 74-99 [facility] Comment on above: Performed By: #### D DANIELLE, CRP, MG, CDP, CP #### [facility] [address] [place], [place] [phone] [employer] Developer: Dequan Lewis MD Potassium [Moles/Vol] 4.1 mmol/L Normal 3.7-5.3 [facility] Comment on above: Performed By: #### D DANIELLE, CRP, MG, CDP, CP #### [facility] [address] [place] [address] [place] [place], [place] [phone] [employer] Developer: Dequan Lewis MD Protein [Mass/Vol] 6.9 g/dL Normal 6.6-8.7 [facility] Comment on above: Performed By: #### D DANIELLE, CRP, MG, CDP, CP #### [facility] [address] [place] [address] [place], [place] [phone] [employer] Developer: Dequan Lewis MD Sodium [Moles/Vol] 139 mmol/L Normal 136-145 [facility] Comment on above: Performed By: #### D DANIELLE, CRP, MG, CDP, CP #### [facility] [address] [place] [address] [place], [place] [phone] [employer] Developer: Dequan Lewis MD Urea nitrogen [Mass/Vol] 11 mg/dL Normal 6-20 [facility] Comment on above: Performed By: #### D DANIELLE, CRP, MG, CDP, CP #### [facility] [address] [place] [address] [place] [address] [employer] Developer: Dequan Lewis MD D-Dimer Teston 05-25-2024 D-Dimer Test <0.27 Normal 0.00-0.59 [facility] Comment on above: Result Comment: When combined with a low clinical probability, a D dimer value of <0.50 ug/mL FEU is considered negative for DVT and PE (negative predictive value of 98%, sensitivity of 97%). If this test is not being used to help rule out DVT and PE, then the following reference range should be utilized: 0.00 - 0.59 ug/mL FEU. The D-Dimer assay is intended for use as an aid in the diagnosis of venous thromboembolism (DVT and PE) and the results should be interpreted in conjunction with the patient's medical history, clinical presentation, and other findings. Elevated levels of D-dimer activity can be seen in any state of coagulation activation and is not recommended in patients with therapeutic dose anticoagulant therapy for >24 hours, fibrinolytic therapy within the previous 7 days, trauma or surgery within the previous 4 weeks, disseminated malignancies, aortic aneurysm, sepsis, severe infections, pneumonia, severe skin infections, liver cirrhosis, advanced age, coronary disease, diabetes, and . A very low percentage of patients with DVT may yield D-dimer results below the cutoff of 0.5 ug/mL FEU. This is known to be more prevalent in patients with distal DVT. Performed By: #### D DANIELLE, CRP, MG, CDP, CP #### [address] [place] [address] [employer] Developer: Dequan Lewis MD Lactic Acidon 05-25-2024 Lactate [Moles/Vol] 0.7 mmol/L Normal 0.5-2.2 [facility] Comment on above: Performed By: #### L ACTIC #### [address] [place] [address] [employer] Developer: Dequan Lewis MD Magnesiumon 7 Magnesium [Mass/Vol] 1.8 mg/dL Normal 1.6-2.6 [facility] Comment on above: Performed By: #### D DANIELLE, CRP, MG, CDP, CP #### [address] [place] [address] [employer] Developer: Dequan Lewis MD XR WRIST RT MIN 3 Von 2022 XR WRIST RT MIN 3 V EXAM: XR WRIST RT MIN 3 V HISTORY: Pain COMPARISON: None. TECHNIQUE: 3 views of the right wrist are performed. FINDINGS: There is no acute fracture. The bony structures are intact. Joint spaces are maintained. Unremarkable soft tissues. IMPRESSION: No acute bony abnormality. Electronically authenticated by: URI CHA Date: 2022-12-28 16:[address] [facility] Vital Signs Date Time Vital Sign Value Performing Clinician Facility 09-02-2024 09:59-0500 Body height 189.[address] [facility] 09-02-2024 09:59-0500 Body mass index (BMI) [Ratio] 25.5 kg/m2 [facility] 09-02-2024 09:59-0500 Body weight 91.[address] [facility] 09-02-2024 09:59-0500 Diastolic blood pressure 72 mm[Hg] [facility] 09-02-2024 09:59-0500 Heart rate 74 /min [facility] 09-02-2024 09:59-0500 Systolic blood pressure 106 mm[Hg] [facility] 08-08-2024 09:19-0500 Body height 189.[address] [facility] 08-08-2024 09:19-0500 Body mass index (BMI) [Ratio] 25.8 kg/m2 [facility] 08-08-2024 09:19-0500 Body weight 92.[address] [facility] 08-08-2024 09:19-0500 Diastolic blood pressure 70 mm[Hg] [facility] 08-08-2024 09:19-0500 Heart rate 77 /min [facility] 08-08-2024 09:19-0500 Systolic blood pressure 105 mm[Hg] [facility] 06-18-2024 10:15-0500 Body height 189.[address] [facility] 06-18-2024 10:15-0500 Body mass index (BMI) [Ratio] 19.8 kg/m2 [facility] 06-18-2024 10:15-0500 Body weight 71.[address] [facility] 06-18-2024 10:15-0500 Diastolic blood pressure 69 mm[Hg] [facility] 06-18-2024 10:15-0500 Heart rate 91 /min [facility] 06-18-2024 10:15-0500 Systolic blood pressure 109 mm[Hg] [facility] 05-28-2024 08:39-0400 Body temperature 97.81 [degF] Jose Luis Pedroza MD Work Phone: [facility] 05-28-2024 08:39-0400 Diastolic blood pressure 69 mm[Hg] Jose Luis Pedroza MD Work Phone: [facility] 05-28-2024 08:39-0400 Heart rate 88 /min Jose Luis Pedroza MD Work Phone: [facility] 05-28-2024 08:39-0400 Respiratory rate 16 /min Jose Luis Pedroza MD Work Phone: [facility] 05-28-2024 08:39-0400 SaO2% (BldA) [Mass fraction] 97 % Jose Luis Pedroza MD Work Phone: [facility] 05-28-2024 08:39-0400 Systolic blood pressure 112 mm[Hg] Jose Luis Pedroza MD Work Phone: [facility] 05-26-2024 00:14-0400 Body height 190.5 cm Jose Luis Pedroza MD Work Phone: [facility] 05-07-2024 14:50-0400 Diastolic blood pressure 56 mm[Hg] Gerardo Feldman MD Work Phone: [facility] 05-07-2024 14:50-0400 Heart rate 72 /min Gerardo Feldman MD Work Phone: [facility] 05-07-2024 14:50-0400 Respiratory rate 16 /min Gerardo Feldman MD Work Phone: [facility] 05-07-2024 14:50-0400 SaO2% (BldA) [Mass fraction] 99 % Gerardo Feldman MD Work Phone: [facility] 05-07-2024 14:50-0400 Systolic blood pressure 114 mm[Hg] Gerardo Feldman MD Work Phone: [facility] 05-07-2024 13:35-0400 Body temperature 100.09 [degF] Gerardo Feldman MD Work Phone: [facility] 05-07-2024 10:00-0400 Body height 190.5 cm Gerardo Feldman MD Work Phone: [facility] 05-07-2024 10:00-0400 Body mass index (BMI) [Ratio] 23.75 kg/m2 Gerardo Feldman MD Work Phone: [facility] 05-07-2024 10:00-0400 Body weight 86.18 kg Gerardo Feldman MD Work Phone: [facility] 03-24-2024 14:00-0400 Diastolic blood pressure 65 mm[Hg] Gerardo Feldman MD Work Phone: [facility] 03-24-2024 14:00-0400 Heart rate 76 /min Gerardo eFldman MD Work Phone: [facility] 03-24-2024 14:00-0400 Respiratory rate 16 /min Gerardo Feldman MD Work Phone: [facility] 03-24-2024 14:00-0400 SaO2% (BldA) [Mass fraction] 100 % Gerardo Feldman MD Work Phone: [facility] 03-24-2024 14:00-0400 Systolic blood pressure 110 mm[Hg] Gerardo Feldman MD Work Phone: [facility] 03-24-2024 13:40-0400 Body temperature 97.81 [degF] Gerardo Feldman MD Work Phone: [facility] 03-24-2024 08:34-0400 Body height 190.5 cm Gerardo Feldman MD Work Phone: [facility] 03-24-2024 08:34-0400 Body mass index (BMI) [Ratio] 23.12 kg/m2 Gerardo Feldman MD Work Phone: [facility] 03-24-2024 08:34-0400 Body weight 83.92 kg Gerardo Feldman MD Work Phone: [facility] 03-04-2024 08:32-0400 Body height 190.5 cm Gerardo Feldman MD Work Phone: [facility] 03-04-2024 08:32-0400 Body mass index (BMI) [Ratio] 23.5 kg/m2 Gerardo Feldman MD Work Phone: [facility] 03-04-2024 08:32-0400 Body weight 85.28 kg Gerardo Feldman MD Work Phone: [facility] Encounters Encounter Date Encounter Type Care Provider Facility Start: 10-21-2024 End: 10-21-2024 ambulatory Nguyen Henson PA-C Facility:[facility] Start: 09-26-2024 End: 09-26-2024 ambulatory Nguyen Henson PA-C Facility:[facility] Start: 09-05-2024 End: 09-05-2024 ambulatory Haroldo Ugarte III, MD Facility:[facility] Start: 09-02-2024 End: 09-02-2024 ambulatory [facility] Work Phone: Start: 09-02-2024 End: 09-02-2024 Patient encounter procedure [facility] Work Phone: Start: 08-29-2024 End: 08-29-2024 ambulatory Haroldo Ugarte III, MD Facility:[facility] Start: 08-28-2024 End: 08-28-2024 ambulatory Ion Chong MD Facility:[facility] Start: 08-08-2024 End: 08-08-2024 ambulatory [facility] Work Phone: Start: 08-08-2024 End: 08-08-2024 Patient encounter procedure [facility] Work Phone: Start: 07-25-2024 ambulatory [facility] Start: 07-15-2024 Non-patient / Non-visit [facility] Work Phone: Start: 07-08-2024 End: 07-08-2024 ambulatory Nguyen Henson PA-C Facility:[facility] Start: 06-18-2024 End: 06-18-2024 ambulatory [facility] Work Phone: Start: 06-18-2024 End: 06-18-2024 Patient encounter procedure [facility] Work Phone: Start: 05-30-2024 End: 05-30-2024 ambulatory Nguyen Henson PA-C Facility:[facility] Start: 05-26-2024 Non-patient / Non-visit [facility] Work Phone: Start: 05-26-2024 End: 05-28-2024 ambulatory RADHA AVILES Facility:[facility] Start: 05-26-2024 End: 05-28-2024 Evaluation and management of inpatient Jose Luis Pedroza MD Work Phone: [phone] Comment on above: Postoperative infect ion Start: 05-25-2024 End: 05-25-2024 Emergency department patient visit [facility] Start: 05-20-2024 ambulatory GERARDO FELDMAN Facility:[facility] Start: 05-07-2024 End: 05-07-2024 [facility] Start: 05-07-2024 End: 05-07-2024 Subsequent hospital visit by physician Gerardo Feldman MD Work Phone: [facility] Comment on above: Exertional compartme nt syndrome of upper extremity, left Start: 05-07-2024 ambulatory [facility] Facility:[facility] Start: 04-29-2024 End: 04-29-2024 ambulatory Narendra BRYANT Facility:[facility] Start: 04-08-2024 ambulatory ION CHONG Facility:[facility] Start: 03-24-2024 End: 03-24-2024 ambulatory [facility] Facility:[facility] Start: 03-24-2024 End: 03-24-2024 Subsequent hospital visit by physician Gerardo Feldman MD Work Phone: Outpatient [facility] Comment on above: Exertional compartme nt syndrome of upper extremity, right Start: [facility]24 [facility] Start: 2024 Encounter for other preprocedural examination ION CHONG Facility:[facility] Start: 03-04-2024 End: 03-04-2024 Office outpatient new 45 minutes Gerardo Feldman MD Work Phone: [facility] [place] Comment on above: Exertional compartme nt syndrome of upper extremity, right (Primary Dx) Start: 03-04-2024 ambulatory [facility] Facility:[facility] Start: 01-24-2024 End: 01-24-2024 ambulatory FREDDIE RODGERS Not Available Start: 12-28-2022 End: 12-28-2022 ambulatory EMILY RUBALCAVA Facility: Start: 09-13-2021 End: 09-13-2021 ambulatory Dariusz Patrick Other Eons Other Start: 09-13-2021 Office outpatient vi sit 15 minutes Dariusz Patrick [facility] Procedures Date Procedure Procedure Detail Performing Clinician Start: 05-28-2024 CBC AND ELECTRONIC DIFF Nba Hyman MD Work Phone: Start: 05-28-2024 Complete blood count with white cell differential, automated Nba Hyman MD Work Phone: Start: 05-28-2024 Creatinine blood Hiram Hyman MD Work Phone: Start: 05-27-2024 Drug screen quantita tive vancomycin Zora Lainez [facility] Work Phone: Start: 05-27-2024 CBC AND ELECTRONIC DIFF Nba Hyman MD Work Phone: Start: 05-27-2024 Complete blood count with white cell differential, automated Nba Hyman MD Work Phone: Start: 05-27-2024 Creatinine blood Hiram Hyman MD Work Phone: Start: 05-26-2024 Culture fngi mold/ye ast prsmptv oth xcpt blood Nba Hyman MD Work Phone: Start: 05-26-2024 C-reactive protein Apri l Joey Willard PA-C Work Phone: Start: 05-26-2024 CBC AND ELECTRONIC DIFF November Sudheer LANDRY Work Phone: Start: 05-26-2024 Complete blood count with white cell differential, automated [place] [facility] Work Phone: Start: 05-26-2024 Comprehensive metabo lic panel November [place] [facility] Work Phone: Plan of Treatment Date Care Activity Detail Author Start: 07-10-2024 Tetanus vaccination TETANUS [facility] Start: 05-20-2024 End: 05-20-2024 Patient encounter procedure 05/20/2024 11:00 AM EDT Office Visit [facility] [place] [address] [facility] [address] [place] [address] Zora Espinoza PA-C [address] [facility] [address] [place] [address] [facility] [place] Start: 05-07-2024 End: 05-07-2024 Dcmprn fasct f/arm&/wrst flxr/xtnsr w/dbrdmt DECOMPRESSION FASCIOTOMY FOREARM HAND WRIST Exertional compartment syndrome of upper extremity, left 05/07/2024 12:14 PM EDT [facility] Start: 04-06-2024 COVID-19 VACCINE () COVID-19 VACCINE () [facility] Start: 04-06-2024 Influenza vaccination INFLUENZA VACC INE (#1) [facility] Start: 04-04-2024 End: 04-04-2024 Patient encounter procedure 04/04/2024 9:20 AM EDT Office Visit [facility] [place] [address] [facility] [address] [place] [phone] Zora Espinoza PA-C [address] [facility] [address] [place] [phone] [facility] [place] Start: 03-24-2024 Subsequent hospital visit by physician 03/24/2024 Hospital Encounter [facility] [address] [address] Gerardo Feldman MD [address] [facility] [address] [place] [phone] Exertional compartment syndrome of upper extremity, right [facility]patient [facility] Comment on above: Exertional compartme nt syndrome of upper extremity, right Start: 03-24-2024 End: 03-24-2024 Dcmprn fasct f/arm&/wrst flxr&xtnsr dbrdmt DECOMPRESSION FASCIOTOMY FOREARM HAND WRIST Exertional compartment syndrome of upper extremity, right 03/24/2024 12:18 PM EDT [facility] Start: 2024 End: 2024 ambulatory 2024 3:30 PM EDT Pre-Operative Nurse Assessment Telehealth Pre [place] [address] [place] [address] Aurelia Mendez, DOMINIC Telehealth Pre Procedure Preparation Start: 04-06-2023 COVID-19 VACCINE ( season) COVID-19 VACCINE ( season) [facility] Start: 2017 HIV screening HIV SCREENING DISCUSSI ON [facility] Start: 2002 Hepatitis C screening HEPATITI S C VIRUS SCREENING [facility] ANAEROBE CULTURE ANAEROBE CULTUR E Microbiology STAT 05/26/2024 2:06 AM EDT [facility] Work Phone: Bacteria identified in Unspecified specimen by Culture BACTERIAL CULTURE AND DIRECT SMEAR, LESION, TISSUE, DEVICE Microbiology STAT 05/26/2024 2:06 AM EDT [facility] Dcmprn fasct f/arm&/wrst flxr&xtnsr dbrdmt DECOMPRESSION FASCIOTOMY FOREARM HAND WRIST Exertional compartment syndrome of upper extremity, right [facility] Dcmprn fasct f/arm&/wrst flxr&xtnsr dbrdmt DECOMPRESSION FASCIOTOMY FOREARM HAND WRIST Exertional compartment syndrome of upper extremity, right [facility] Fungus identified in Unspecified specimen by Culture FUNGUS CULTURE Microbiology STAT 05/26/2024 2:06 AM EDT [facility] End: 03-24-2024 US Unspecified body region US IMAGING OSC Imaging Routine One Time for 1 Occurrences starting 03/24/2024 until 03/24/2024 [facility] Work Phone: Comment on above: One Time for 1 Occur rences starting 03/24/2024 until 03/24/2024 End: 05-07-2024 US Unspecified body region US IMAGING OSC Imaging Routine One Time for 1 Occurrences starting 05/07/2024 until 05/07/2024 [facility] Work Phone: Comment on above: One Time for 1 Occur rences starting 05/07/2024 until 05/07/2024 Immunizations Immunization Date Immunization Notes Care Provider Alexx gonzalez 07-10-2014 influenza virus vaccine, unspecified formulation Gerardo Feldman MD Work Phone: [facility] Payers Date Payer Category Payer [facility] [id number] 2022 Unknown [id number] 2002 Unknown [id number] 2.16.840.1.762902.3.579.2.593 2002 Unknown [id number] 2.16.840.1.447152.3.579.2.1259 2002 Unknown [id number] 2.16.840.1.767800.3.579.2.173 2002 Unknown [id number] 2.16.840.1.209386.3.579.2.594 2002 Unknown [id number] 2.16.840.1.306170.3.579.2.594 2002 Unknown [id number] 2.16.840.1.954922.3.579.2.594 2002 Unknown [id number] 2.16.840.1.498106.3.579.2.594 2002 Unknown [id number] 2.16.840.1.318615.3.579.2.594 2002 Unknown [id number] 2.16.840.1.895328.3.579.2.594 2002 Unknown [id number] 2.16.840.1.816807.3.579.2.594 2002 Unknown [id number] 2.16.840.1.478400.3.579.2.594 2002 Unknown [id number] 2.16.840.1.153744.3.579.2.196 2002 Unknown [id number] 2.16.840.1.566272.3.579.2.196 2002 Unknown [id number] 2.16.840.1.226430.3.579.2.196 2002 Unknown [id number] 2.16.840.1.372274.3.579.2.196 2002 Unknown [id number] 2.16.840.1.472436.3.579.2.196 2002 Unknown [id number] 2.16.840.1.008389.3.579.2.196 2002 Unknown [id number] 2.16.840.1.745333.3.579.2.196 2002 Unknown [id number] 2.16.840.1.034718.3.579.2.196 2002 Unknown [id number] 2.16.840.1.177966.3.579.2.196 1959 Private Health Insurance [id number] 1959 Unknown [id number] Unknown [id number] 2.16. [id number] Unknown [employer] [id number] Unknown [employer] [id number] Social History Date Type Detail Facility Start: 03-24-2024 End: 05-07-2024 Sex Assigned At [facility] [employer] Other Tobacco smoking status WYIS Tobacco smoking consumption unknown [facility] Start: 2002 Sex assigned at Not on file [facility] Start: 2024 End: 06-18-2024 Tobacco smoking status WYIS Never smoked tobacco [facility] Start: 2024 Tobacco use and exposure Smokeless tobacco non-user [facility] Start: 03-24-2024 End: 05-26-2024 Alcoholic beverage intake Current drinker of alcohol (finding) [facility] Start: 03-24-2024 End: 05-07-2024 Alcoholic beverage intake [facility] Start: 04-09-2024 Gender identity Identifies as male gender (finding) [facility] Start: 06-18-2024 End: 09-02-2024 Sex Male (finding) [facility] Start: 2002 Sex Assigned At Male [facility] Clinical Notes 09-13-2021 to 07-25-2024 Note Date & Type Note Facility 07-25-2024 Note [facility] Note Reason for cardiology consult: Syncope Chief Complaint: Syncope HPI: Clover Nicolas is a 24 y.o. male without prior cardiac history. He denies history of hypertension, hyperlipidemia or diabetes mellitus. He is not on any medications. He states that about 1 and half months ago he was laying on bed and he got up to get a drink and he felt lightheaded too quickly he fell forward and lost consciousness probably for couple seconds. Patient states that the event was around 2 PM. He states that he ate and he drank fluids that day. He denies consumption of alcohol that day or the day before. He denies being sick and he denies any reason to be dehydrated. He never been a big caffeine consumer. He drinks alcohol occasionally and he does not do any illicit drugs. He drinks plenty of water. He denies any prior history of feeling dizzy or lightheaded when he changing position or when he stands for a long time. He denies any history of syncope or near syncope when he was younger. Prior to this events he had couple surgeries on his arms because of compartment syndrome and it was complicated with infection, also he had back injection because of disc herniation, but at the time of the event he had recovered. He thinks he was stressed out due to the surgeries and the procedures he had and because he is going soon for back surgery He denies any shortness of breath at rest or with exertion. Denies orthopnea or paroxysmal nocturnal dyspnea or legs edema or leg discomfort on exertion. Reports occasional very very rare sharp pointy pains which last 5 to 15 seconds not related to exertion. Also he reports rare brief palpitation probably once a month. He states that he is usually active but currently he has back pain that is why he does not exercise. And he is going to have surgery soon. He never been a smoker. Denies alcohol or illicit drugs Regarding family history his mother had SVT, his father and paternal grandmother had A-fib. His paternal grandfather due to DE at age 76 Cardiology ROS: GENERAL: Denies fever, chills, night sweats, weight loss. HEENT: Denies changes in vision, photophobia, changes in hearing, epistaxis, oral bleeding. CARDIOVASCULAR: As in the history RESPIRATORY: Denies SOB, coughing, wheezing GI: Denies abdominal pain, nausea/vomiting, heartburn, melena/hematochezia. RENAL: Denies dysuria, hematuria, flank pain. MSK: Denies muscle weakness/pain, arthralgias/joint pain. NEUROLOGIC: Denies LOC, weakness, numbness, headaches. SKIN: Denies abnormal rashes or bleeding. PSYCH: Denies significant anxiety, depression, sleep disturbances. Past Medical History He has no past medical history on file. Surgical History He has a past surgical history that includes Fasciotomy. Social History He reports that he has never smoked. He has never used smokeless tobacco. He reports current alcohol use. No history on file for drug use. Family History Family History Problem Relation Name Age of Onset Supraventricular tachycardia Mother Atrial fibrillation Father Atrial fibrillation Maternal Grandmother Allergies Patient has no known allergies. Medications No current outpatient medications on file. Last Recorded Vitals Visit Vitals BP 126/82 (BP Location: Left arm, Patient Position: Standing) Pulse 85 Ht 1.905 m (6' 3 ) Wt 91.2 kg (201 lb) SpO2 98% BMI 25.12 kg/m??? Smoking Status Never BSA 2.2 m??? Physical Examination: GENERAL: alert and oriented x3, well developed, in no acute distress. HEAD: atraumatic, normocephalic. EYES: VIJAYA, EOMI. NECK: trachea midline, no JVD present, no carotid bruits present. CARDIAC: S1, S2 present. RRR. No murmur, rubs, or gallops. RESPIRATORY: CTAB, no increased effort of breathing, no rales, rhonchi, or wheezing. ABDOMEN: soft, nontender, nondistended. EXTREMITIES: no lower extremity edema, peripheral pulses are 2+ bilaterally. No rash/skin discoloration present. NEURO: strength/sensation equal and symmetric in bilateral upper and lower extremities. PSYCH: appropriate mood, affect, and judgement. Labs: 05/28/2024 Sodium 139, potassium 3.7, glucose 105, BUN 9, creatinine 1.13, GFR above 90 White blood count 7.38, hemoglobin 13.7, hematocrit 40, platelets 251 05/26/2024 ESR 13, CRP 61 Magnesium 1.8 Last Images: EKG 07/15/2024 showed sinus bradycardia with sinus arrhythmia, heart rate 54 bpm, early repolarization. Echo 07/15/2024 Assessment and Plan: Syncopal episode, one isolated event, most likely represent orthostatic hypotension/neurocardiogenic syncope. No recurrence of symptoms His EKG and echo appear to be normal. His labs are within normal limits Physical examination appears to be normal Plan: Patient was advised regarding avoiding caffeine and alcohol and to make sure that he has adequate fluid intake between 1500 and 2000 cc/day At this poi (more content not included)... [facility] 06-18-2024 Evaluation note Diagnosis Onset Date Resolution Syncope and collapse acute Rosanne merchant 2023 9:51am GERD (gastroesophageal reflux disease) acute August 08 9:14am [facility] Work Phone: [phone] 433-225510-23-2024 Miscellaneous Notes* Nursing Notes - Jud Caldera RN - 05/28/2024 9:45 AM EDT PT IV removed, AVS reviewed and education provided about dressing changes. no tablet to collect. Ptbelongings collected by pt and mother including AVS. Pt first soak of the day completed by RN and RN educated pt to do another soak and dressing change tonight. Pt walked down to ride with mother andbelongings. * Nursing Notes - Sonal Gilliland RN - 05/26/2024 6:43 AM EDT On admission to [facility], from ED a dual RN initial assessment of skin condition was performed by DOMINIC Mendez and Jazmine Sandoval RN. Skin Assessment: Skin not within defined limits. - Wound(s) identified: Yes LDA Added:No LUE cellulitis I&D performed at bedside in ED, transferred to [facility] wrapped in angela wrap. No other wounds identified. [facility]onal Gilliland RN [facility]* Nursing Notes - Jud Caldera RN - 05/28/2024 9:45 AM EDT PT IV removed, AVS reviewed and education provided about dressing changes. no tablet to collect. Ptbelongings collected by pt and mother including AVS. Pt first soak of the day completed by RN and RN educated pt to do another soak and dressing change tonight. Pt walked down to ride with mother andbelongings. [facility]10-22-2024 History of Present illness Narrative* Tonia Clemons [facility] - 05/27/2024 5:47 PM EDT Department of Pharmacy Pharmacokinetics Progress Note Patient: Clover Nicolas Room/Bed: [facility] Assessment and Plan: Based upon drug level assessment and interpretation (steady state), I recommend changing vancomycindose and/or dosing interval to 1250 mg IV every 8 hours to start at 1800 on 05/27/24. A pharmacist will continue to follow and order drug levels and adjust dosing as clinically appropriate. I have contacted Roxie Chanel and received a verbal order to adjust applicable orders in IHIS as indicated above. Vancomycin regimen at time of level: Vancomycin 1250 mg IV every 12 hours Last Dose Administered: Dose: Date: Time: 1250 mg 05/27/24 0547 Levels: 6.2 mcg/mL drawn at 1554 on 05/27/24. Level was a trough. Most Recent Labs: WBC Count Date Value Ref Range Status 05/27/2024 7.09 3.73 - 10.10 K/uL Final BUN Date Value Ref Range Status 05/27/2024 8 7 - 25 mg/dL Final Creatinine Date Value Ref Range Status 05/27/2024 1.01 0.70 - 1.30 mg/dL Final I/O last 3 completed shifts: In: 300 [P.O.:300] Out: - CrCl cannot be calculated (Unknown ideal weight.). Ongoing Vancomycin Monitoring: The following trough goal is recommended for ongoing therapy based on the suspected/confirmed source of infection and today s calculations: Goal trough range: 10-15 mcg/mL If therapy is to be continued after discharge, please contact pharmacy for appropriate dosing. Please feel free to contact me with any further questions. Name: Tonia Clemons RPH Phone: [phone] Date/Time: 05/27/2024 5:47 PM * Pollo S Nakul, DO - 05/27/2024 11:34 AM EDT Images from the original note were not included. DIVISION OF INFECTIOUS DISEASES FOLLOW UP NOTE - Team 1 SUBJECTIVE/INTERVAL HISTORY: Pt is a 24 y.o. male being followed by ID for LUE abscess s/p I&D. No overnight events. No fevers or chills. No abdominal pain, nausea, vomiting, or diarrhea. No rashes. REVIEW OF SYSTEMS: Review of Systems Constitutional: Negative for chills and fever. Respiratory: Negative for cough and shortness of breath. Cardiovascular: Negative for chest pain. Gastrointestinal: Negative for abdominal distention, abdominal pain, constipation, diarrhea, nauseaand vomiting. Musculoskeletal: Negative for back pain. Skin: Positive for color change (left arm erythema improving). MEDICATIONS reviewed, antimicrobials include: Acetaminophen 650 mg Oral Q6HNS Docusate 100 mg Oral BID piperacillin-tazobactam 4.5 g Intravenous Q8HNS vancomycin 15 mg/kg (Order-Specific) Intravenous Q12HNS PHYSICAL EXAM: Vitals: BP 120/57 (BP Location: Right arm, BP Position: Lying) Pulse 74 Temp 97.5 F (36.4 C) (Oral) Resp 16 Ht 1.905 m (6' 3 ) SpO2 96% BMI 23.75 kg/m Smoking Status Never Physical Exam Constitutional: General: He is not in acute distress. Appearance: He is not ill-appearing. HENT: Head: Normocephalic and atraumatic. Cardiovascular: Rate and Rhythm: Normal rate and regular rhythm. Heart sounds: No murmur heard. Pulmonary: Effort: No respiratory distress. Breath sounds: Normal breath sounds. Abdominal: General: Abdomen is flat. There is no distension. Palpations: Abdomen is soft. Tenderness: There is no abdominal tenderness. Musculoskeletal: Right lower leg: No edema. Left lower leg: No edema. Comments: Left arm wrapped Skin: General: Skin is warm and dry. Neurological: Mental Status: He is alert. LABS/IMAGING: WBC/Hgb/Hct/Plts: 7.09/13.8/41.6/226 (05/27 44) Lab Results Component Value Date RBCDISTRIBU 12.1 05/27/2024 GRNLOCYT 53.1 05/27/2024 LYMPHOCYT 27.8 05/27/2024 MONOCYTELEC 14.0 05/27/2024 EOSINOPHILS 3.2 05/27/2024 BASOPHILS 0.8 05/27/2024 LYMPHOCYTABS 1.97 05/27/2024 EOSINOPHLABS 0.23 05/27/2024 PLATELET 226 05/27/2024 MPV 9.0 05/27/2024 Bun/Creat/Cl/CO2/Glucose: 8/1.01/106/24/101 (05/27 44) Na/K+/Phos/Mg/Ca: 139/3.9/--/--/-- (05/27 44) Lab Results Component Value Date ALT 26 05/26/2024 AST 14 05/26/2024 ALKPHOS 83 05/26/2024 BILITOTAL 0.5 05/26/2024 Microbiology and Other Significant ID Labs: (personally reviewed, analyzed, and summarized as follows) Abscess Cx 05/26/24 S aureus RECENT IMAGING: I personally reviewed the pertinent imaging and agree with the radiologist's reports listed as follows, unless otherwise indicated. CT Radius Ulna left W contrast ([facility]) 05/25/24 1. Circumferential subcutaneous fat stranding of the elbow extending into the mid forearm sparing the radial aspect compatible with cellulitis. 2. Elongated fluid collection in the subcutaneous fat overlying the proximal flexor musculature measuring 5.2 x 3.2 x 1.9 cm compatible with an abscess. 3. Edema along the fascial plane between the superficial and deep volar compartment musculature there is a possibility of fasciitis. No soft tissue gas identified to confirm a necrotizing process. Consider further evaluation with an MRI with and without contrast as clinically indicated. 4. No acute osseous abnormality. ASSESSMENT: Clover Nicolas is a 24 yo male with PMH L forearm fasciotomy/compartment release on 05/07/24 and R forearm on 03/24/24 that presented due to swelling with concern for cellulitis and an abscess s/p bedside I&D by Ortho. Post-operative cellulitis and superficial abscess of left forearm - S/p bedside I&D with cultures showing Staph aureus (final susceptibilities pending) S/p LUE Fasciotomy/compartment release on 05/07/2024 -CrCl cannot be calculated (Unknown ideal weight.). RECOMMENDATIONS: Diagnostics None Therapeutics Can switch to Linezolid 600 mg PO every 12 hours to complete a 14 days of total therapy (Start date: 05/25/2024; EOT date: 06/07/2024) Patient was staffed with Dr. Neo Cole ID Team 1 Will sign off at this time. If you have any questions, please reach out to the ID Team 1 pager found in Connectema below. The ID Team pagers are available - Sunday through Sunday from 7:00 am to 06:00 pm. For emergent or after hour issues, please call the on-call ID Fellow pager. [facility]ide Infectious Disease - Pollo Mota DO Infectious Disease Fellow PGY-4 For urgent calls overnight or during the weekend, please page IM Consult Service Infectious Diseases on [employer] ID Staff I have discussed and examined the patient along with the ID Fellow at bedside on 05/27/2024. I agree with the ID Fellow's history, physical exam, and clinical decision making. These were corroboratedby me and modified when necessary, based on my findings. Chart, labs, micro, radiology, and vitals reviewed. Please see the ID Fellow's impressions and recommendations above as they have been modified to reflect my own when necessary. Our overall recommendations were discussed with the patient and they verbalized understanding. They were also agreeable with the plan of care. These recommendationswere relayed to the primary team. Thank you Neo Cole DO Attending Physician - Infectious Diseases [phone] * Erna Pacheco RN - 05/27/2024 10:55 AM EDT Discharge Planning Patient Assessment Admission Assessment Patient Assessment Completed: Initial Expected Discharge Disposition: Home with Home Health Reason for Admission: Recent volar fasciotomy release with Dr. Feldman 05/07/24 presenting with superficial abscess of the forearm. Now s/p bedside I&D on 05/25 Is the patient able to participate in the assessment?: Yes Information source: Patient, Review of Medical Record Information Source Name/Contact: Clover Nicolas Demographics Verified and Updated: Yes Has the patient been admitted to any hospital in the last 30 days?: No Advanced Care Planning Has the patient completed Advance Directives?: Not Completed Legal Next of Kin Does the patient have a Guardian?: No Spouse: No Adult Child(eliecer), List All Adult Children: No Parent(s) - List All Living Parents: Yes Name and Contact information: Courtney Nicolas [phone] Would you like to add additional parents?: No Referral to Social Work to Identify Legal Next of Kin?: No Reviewed and Updated in Demographics? : Yes Outpatient Providers Does patient have a primary care physician? : Yes When was the patient's last PCP visit?: > 30 days Does the patient follow any specialists?: Yes Reviewed and updated Care Team?: Yes Patient Care Team: Ion Chong MD as PCP - General (Family Medicine) Environment/Caregivers Is the patient from a facility or [place] care facility?: No Patient lives with: Parent(s), Sibling(s) Living Environment: House How many steps does the patient have to navigate to enter or inside the home? : 5 SESAR, full flight inside Does the patient have a first floor set-up with bed and bathroom?: No Patient Caregiving Responsibilities: Self Patient-identified caregiver/support network: Family Who does the patient identify as a teachable caregiver(s)?: Sibling(s), Parent(s) Services Does the patient use a home health or hospice agency?: No Current with dialysis?: No Does the patient use any community programs or services?: No Does patient use DME? : none (Patient has DME available but does not use.) Does the patient use oxygen?: No Does patient use medical supplies? : none Anticipated Changes Related to Illness/Injury? : Unknown at this time Initial ADLs Prior to Arrival What is the patient's baseline physical functioning prior to this acute illness?: independent What is the patient's baseline cognitive functioning prior to this acute illness?: independent Is the patient's baseline functioning changed by this acute illness? : Unable to assess Concerns with patient being able to care for themselves at home? : No Are there therapy or specialists consults?: Yes Select consult type: (Infectious disease) Does the patient's home require any home modifications for discharge? : No CM to recommend therapy or other consults? : No Medication Management Does the patient have prescription insurance coverage? : Yes Is the patient on Anticoagulation? : No [id number] [place] [id number] - [address] [facility] [address] [facility] [place] [address] [employer] Does the patient or customer loyalty representative express financial concerns? : No Employed?: Yes Coping/Stress Concerns about patient s coping and stress?: No Concerns about patient s caregiver s coping and stress?: No Values and Beliefs Cultural or catholic practices that may impact discharge planning and/or medical care?: No Initial Discharge Planning Expected Discharge Disposition: Home with Home Health Transportation Available for Discharge: Family or Friend Anticipated DME: none Anticipated Services at Discharge: Alf Patient Assessment Completed: Initial Expected Discharge Date: 05/29/2024 Discharge Planning Summary Patient reports living independently with parents and sibling in a 2 level home with a second floorset-up and 5 steps to enter. Mother and patient expressed interest in a couple of home health visits to instruct family in dressing and packing changes. Discussed referral process with the patient (and/or customer loyalty representative). They are agreeable to have the referral for home health initiated. Care Management Plan Discharge home with home health services and assistance from family as needed. medical staff services manager to continue ongoing assessment of potential needs and/or services as patient progresses. Will assist with care coordination and discharge planning as needed. * Ashwin Barnett MD - 05/27/2024 5:55 AM EDT ORTHOPAEDIC SURGERY Progress Note Clover A Fidencio is a 24 y.o. year old male with recent volar fasciotomy release with Dr. Feldman 05/07/24presenting with superficial abscess of the forearm. Now s/p bedside I&D on 05/25 Last 24 Hours Pain well controlled, on acute events overnight. Some pain with packing changes, managed with 5 mg oxycodone. Denies numbness or tingling in his arm. Denies pain in his arm. Vitals Temp: [97.8 F (36.6 C)-99.1 F (37.3 C)] 97.8 F (36.6 C) Pulse (Heart Rate): [69-99] 69 Resp Rate: [16-18] 17 BP: (114-134)/(55-67) 117/62 O2 Sat (%): [97 %-100 %] 98 % Oxygen Therapy O2 Sat (%): 98 % O2 Device: room air Fluid Management (24hrs): Intake/Output last 3 shifts: I/O last 3 completed shifts: In: 868.6 [P.O.:650; IV Piggyback:218.6] Out: - WBC/Hgb/Hct/Plts: 7.09/13.8/41.6/226 (05/27 44) Na/K+/Phos/Mg/Ca: 139/3.9/--/--/-- (05/27 44) Bun/Creat/Cl/CO2/Glucose: 8/1.01/106/24/101 (05/27 44) Physical Exam Left UE: Inspection: No cellulitis around incisions. Palpation: No palpable fluctuance or induration. No expressible fluid collection ROM: Painless ROM of all relevant joints Neurovascular: Motor was intact to AIN/Median, PIN, Radial, Ulnar. Sensations were intact to light touch involving radial, median, and ulnar nerve. Radial pulse palpable, with brisk capillary refill of <2s, comparable to contralateral extremity Laboratory Studies and Imaging WBC/Hgb/Hct/Plts: 7.09/13.8/41.6/226 (05/27 44) Na/K+/Phos/Mg/Ca: 139/3.9/--/--/-- (05/27 44) Bun/Creat/Cl/CO2/Glucose: 8/.01/106/24/101 (05/27 44) IMAGING CT L forearm (prior to I&D) with superficial volar abscess Assessment Clover Nicolas is a 24 y.o. male with recent volar fasciotomy release with Dr. Feldman 05/07/24 presenting with superficial abscess of the forearm. Bedside I&D performed and cultures sent, now [facility] Plan Activity: PT/OT Weight Bearing Status: WBAT LUE Pain: multi-modal Diet: DIET REGULAR Abx: Vanc and Zosyn, pending culture results and ID recs Dressing: BID soapy soaks with warm water mixed with chlorhexidine scrub soap in a 1:1 ratio. Soak extremity for 20 minutes, gentle massage to express any purulent material. Remove packing and replace with 1/4inch iodoform packing material into wound. Apply non adherant dressing, sterile 4x4 and angela bandageafter soak. Dispo: pending culture results and final ID recs DVT Ppx: SCD's,ASA Ashwin Barnett MD Orthopaedic Surgery Resident, PGY-2 [phone] * Ashwin Barnett MD - 05/26/2024 8:01 AM EDT ORTHOPAEDIC SURGERY Progress Note Clover Nicolas is a 24 y.o. year old male with recent volar fasciotomy release with Dr. Feldman 05/07/24presenting with superficial abscess of the forearm. Now s/p bedside I&D on 05/25 Last 24 Hours Bedside I&D performed overnight, 20 cc serosanguinous fluid drained. Denies numbness or tingling in his arm. Denies pain in his arm. Vitals Temp: [97.8 F (36.6 C)-98.7 F (37.1 C)] 98.2 F (36.8 C) Pulse (Heart Rate): [76-95] 76 Resp Rate: [16-18] 16 BP: (113-134)/(61-78) 134/66 O2 Sat (%): [93 %-100 %] 100 % Oxygen Therapy O2 Sat (%): 100 % O2 Device: room air Fluid Management (24hrs): Intake/Output last 3 shifts: I/O last 3 completed shifts: In: 218.6 [IV Piggyback:218.6] Out: - WBC/Hgb/Hct/Plts: 7.35/14.2/42.0/233 (05/26 105) Na/K+/Phos/Mg/Ca: 139/3.7/--/--/9.1 (05/26 105) Bun/Creat/Cl/CO2/Glucose: 12.00/ (05/26 105) Physical Exam Left UE: Inspection: Healed incisions, mild surrounding cellulitis. Palpation: Full fluctuance near incision sites, mild induration. ROM: Painless ROM of all relevant joints Neurovascular: Motor was intact to AIN/Median, PIN, Radial, Ulnar. Sensations were intact to light touch involving radial, median, and ulnar nerve. Radial pulse palpable, with brisk capillary refill of <2s, comparable to contralateral extremity Laboratory Studies and Imaging WBC/Hgb/Hct/Plts: 7.35/14.2/42.0/233 (05/26 105) Na/K+/Phos/Mg/Ca: 139/3.7/--/--/9.1 (05/26 105) Bun/Creat/Cl/CO2/Glucose: 07/06./ (05/26 105) IMAGING CT L forearm with superficial volar abscess Assessment Clover Anne Marie Hernandezt is a 24 y.o. male with recent volar fasciotomy release with Dr. Feldman 05/07/24 presenting with superficial abscess of the forearm. Bedside I&D performed and cultures sent, now awaiting culture results. Plan Activity: PT/OT Weight Bearing Status: WBAT LUE Pain: multi-modal Diet: DIET REGULAR Abx: Vanc and Zosyn, pending culture results and ID recs Dressing: BID soapy soaks with warm water mixed with chlorhexidine scrub soap in a 1:1 ratio. Soak extremity for 20 minutes, gentle massage to express any purulent material. Remove packing and replace with 1/4inch iodoform packing material into wound. Apply non adherant dressing, sterile 4x4 and angela bandageafter soak. Dispo: pending culture results and ID recs DVT Ppx: SCD's,ASA Ashwin Barnett MD Orthopaedic Surgery Resident, PGY-2 [phone] * Vinita Acharya [facility] - 05/26/2024 2:15 AM EDT Department of Pharmacy Outside Facility Transfer Note Patient: Clover Nicolas Room/Bed: E001/E001 Patient has transferred from the Emergency Department at [facility] . I have reviewed records from the outside hospital available in Care Everywhere and confirmed the following medicationswere received by the patient prior to arrival at [facility]: Antimicrobials: Vancomycin 1500 mg on 05/25 @1705 Please feel free to contact me with any further questions. Name: Vinita Acharya [facility] Phone #: [phone] Date/Time: 05/26/2024 2:15 AM [facility] Hospital course Narrative* Ashwin Barnett MD - 05/27/2024 5:37 PM EDT Discharge Summary Name: Clover Nicolas Age: 24 y.o. Birthday: 2000 Admit Date: 05/26/2024 12:18 AM Discharge Date: 05/27/24 Discharge Time: 5:45 PM [facility]: [facility] Admission Information Admitting Physician: Gerardo Feldman MD Discharge Information Discharge Physician: Ashwin Barnett MD Problem List Active Hospital Problems Diagnosis Postoperative infection Cellulitis Resolved Hospital Problems No resolved problems to display. 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 He presented to the ED on the evening of 05/25/24 for five days of pain and cellulitis overlying his incisions. Patient underwent bedside irrigation and debridement which released 20 cc of serosanguinous fluid. Patient was admitted for twice daily packing changes and soapy soaks as well as IV antibiotics. Patient remained hemodynamically stable and afebrile for the duration of his hospitalization. Cultures taken at the time of his bedside irrigation and debridement grew staph aureus. The infectious disease consult team recommended patient discharge on 10 days of oral linezolid twice daily. Patient will discharge on antibiotics and follow-up with Dr. Feldman at the conclusion of his antibiotic course. He will continue to keep his incisions clean and to perform the twicedaily soap water soakings but can discontinue the packing. Brief Summary of Consults for Discharge Summary: Infections disease - recommended empiric abx in the hospital and oral abx for discharge Brief Summary of Procedures and Imaging for Discharge Summary: Bedside I&D yielded 20 cc of fluid that grew staph aureus Summary of last selected lab results and date obtained: Lab Results Component Value Date WBC 7.09 05/27/2024 HGB 13.8 05/27/2024 HCT 41.6 05/27/2024 PLATELET 226 05/27/2024 MCV 88.5 05/27/2024 Lab Results Component Value Date SODIUM 139 05/27/2024 POTASSIUM 3.9 05/27/2024 CHLORIDE 106 05/27/2024 CO2 24 05/27/2024 BUN 8 05/27/2024 CREATSERUM 1.01 05/27/2024 GLUCOSE 101 (H) 05/27/2024 Lab Results Component Value Date ALT 26 05/26/2024 AST 14 05/26/2024 ALKPHOS 83 05/26/2024 BILITOTAL 0.5 05/26/2024 Brief Summary of Labs for Discharge Summary: No discharge procedures on file. Current Outpatient Meds: Medication List for when you go home START taking these medications Morning Afternoon Evening Bedtime As Needed Linezolid 600 MG TABS Take 1 tablet by mouth 2 times daily for 10 days. Commonly known as: ZYVOX STOP taking these medications oxyCODONE 5 MG TABS Commonly known as: ROXICODONE Follow-up: Gerardo Feldman MD [address] [facility] [address] [place] [id number] Call in 1 week(s) For wound re-check documented in this [facility]Hol[facility]10-[facility] Hospital Discharge instructions* Discharge Instructions* Ashwin Barnett MD - 05/27/2024 5:36 PM EDT [facility] 1. PAIN CONTROL Prescription Medications: Over the Counter Medications: If you are medically able to do so, take 1 Aleve 220 mg in the morning and 1 in the evening for up to 10 days after surgery. You can stop if your post-operative pain is controlled sooner. If you are medically able to do so, take Tylenol Arthritis (or any brand of acetaminophen 8-hour) every 8 hours for up to 10 days after surgery. Take no more than 4000 mg in a 24-hour period. Tylenol Arthritis plus Aleve work together as a team to make each other stronger. The maximum amount of Tylenol is 4000 mg from all sources in a 24-hour period. Remember; don t substitute any other medication for the Tylenol. It must be Tylenol (also called acetaminophen) for it to work as a team. Remember also that the Tylenol Arthritis is taken every 8 hours, or three times a day, and Aleve is only twice a day. Over the Counter Medications to take as needed: Colace: You can take this if you are taking a narcotic pain medication to prevent constipation. Hold for loose stools or diarrhea. Take 100 mg 1-2 times a day. Pepcid: You can take this while taking Naproxen/Aleve or other NSAIDs such as ibuprofen/Motrin/Advil to prevent stomach upset or Acid-reflux symptoms. Take 1 tablet 1-2 times a day. Elevation: Keep your arm elevated above the level of your heart as much as possible to prevent swelling and help with pain. Prop up your wrist on a pillow anytime you sit or lie down for the first 2 or 3 days. Ice: You can apply an ice pack for 20 minutes at a time outside of your splint or dressing (for instance on the forearm or in your arm pit.) Put a protective layer against your skin. Other medications: You may restart your own medications that you have at home as prescribed by yourrespective physicians. 2. DRESSINGS AND WOUND CARE Continue the BID soapy soaks. Submerge your forearm in soapy water for 20 minutes twice per day. You may discontinue the incision packing and allow the incisions to heal on their own. Please keep theincisions covered with a dressing until fully healed. You may shower normally. Pat dry with a soft towel. Do not soak your incision(s) in dirty water including in dish water, bath tub or hot tub. Do not use creams, salves or balms on your incision(s). 3. WHEN TO CALL YOUR DOCTOR If you cannot get your pain under control If you have a temperature greater than 101 degrees Fahrenheit For increased amounts of redness, swelling or drainage from the incision Contacts: If you have any questions or problems, contact your doctor s office during office hours. [facility] [address], [address] [place] [address] Phone: [phone]). If after hours, call or the hospital miter operator at and ask for the [employer] contract design agent or go to your local [facility]. documented in this [facility]10-21-2024 Consult note* Pollo Mota, DO - 05/26/2024 3:17 PM EDTAssociated Order(s): IP CONSULT TO INFECTIOUS DISEASE Images from the original note were not included. Infectious Diseases Team 1 Consultation History and Physical REQUESTING PHYSICIAN: Gerardo Feldman MD REASON FOR CONSULTATION: L forearm abscess s/p I&D and cultures sent ANTIMICROBIALS: Vancomycin Zosyn HISTORY OF PRESENT ILLNESS: Clover Nicolas is a 24 y.o. male with a PMH of L forearm fasciotomy/compartment release on 05/07/24 and R forearm on 03/24/24 . He presented on 05/26/2024 He initially presented to [facility] due to concern for cellulitis/abscess. He stared noticing his left forearm becoming swollen and red on 05/23. His symptoms continued to get worse so he presented to the [facility] ED for evaluation. While there he was given Toradol for pain and transferred to [facility] due to recent left arm decompression surgery. At [facility] he was evluated by Orthopedic sx who performed a bedside I&D and started Vancomycin and Zosyn. ID was consulted for antibiotic assistance. Upon ID evaluation he is sitting in the chair at bedside eating his lunch. He states that since he has been here his pain has greatly improved along with the swelling and erythema. Patients prior medical records were reviewed and summarized above. PAST MEDICAL HISTORY: No past medical history on file. PAST SURGICAL HISTORY: Past Surgical History: Procedure Laterality Date DECOMPRESSION FASCIOTOMY FOREARM HAND WRIST Left 05/07/2024 Laterality: Left; Surgeon: Gerardo Feldman MD; Location: [facility] DECOMPRESSION FASCIOTOMY FOREARM HAND WRIST Right 03/24/2024 Laterality: Right; Surgeon: Gerardo Feldman MD; Location: [facility] ALLERGIES: Patient has no known allergies. HOME MEDICATIONS: (Not in an outpatient encounter) IMMUNIZATIONS: There is no immunization history on file for this patient. SOCIAL HISTORY: Social History Tobacco Use Smoking Status Never Smokeless Tobacco Never Social History Substance and Sexual Activity Alcohol Use Yes Alcohol/week: 2.0 standard drinks of alcohol Types: 2 Standard drinks or equivalent per week Social History Substance and Sexual Activity Drug Use Not Currently FAMILY HISTORY: Reviewed, no family history of recurrent infections No family history on file. REVIEW OF SYSTEMS: Review of Systems Constitutional: Negative for chills and fever. Respiratory: Negative for cough and shortness of breath. Cardiovascular: Negative for chest pain. Gastrointestinal: Negative for abdominal distention, abdominal pain, constipation, diarrhea, nauseaand vomiting. Musculoskeletal: Negative for back pain. Skin: Positive for color change (left arm erythema improving). CURRENT MEDICATIONS reviewed: Acetaminophen 650 mg Oral Q6HNS Docusate 100 mg Oral BID piperacillin-tazobactam 4.5 g Intravenous Q8HNS vancomycin 15 mg/kg (Order-Specific) Intravenous Q12HNS PHYSICAL EXAM: Vitals: 05/26/24 0420 05/26/24 0641 05/26/24 0809 05/26/24 1146 BP: 113/61 134/66 131/62 119/55 Pulse: 85 76 99 95 Resp: 16 16 16 16 Temp: 98.7 degrees F (37.1 degrees C) 98.2 degrees F (36.8 degrees C) 99 degrees F (37.2 degrees C)98.1 degrees F (36.7 degrees C) TempSrc: Oral Oral Oral Oral SpO2: 93% 100% 99% 99% Height: Body mass index is 23.75 kg/m . Physical Exam Constitutional: General: He is not in acute distress. Appearance: He is not ill-appearing. HENT: Head: Normocephalic and atraumatic. Cardiovascular: Rate and Rhythm: Normal rate and regular rhythm. Heart sounds: No murmur heard. Pulmonary: Effort: No respiratory distress. Breath sounds: Normal breath sounds. Abdominal: General: Abdomen is flat. There is no distension. Palpations: Abdomen is soft. Tenderness: There is no abdominal tenderness. Musculoskeletal: Right lower leg: No edema. Left lower leg: No edema. Comments: Left arm wrapped Skin: General: Skin is warm and dry. Neurological: Mental Status: He is alert. LABS: Lab Results Component Value Date WBC 7.35 05/26/2024 RBC 4.79 05/26/2024 HGB 14.2 05/26/2024 HCT 42.0 05/26/2024 MCV 87.7 05/26/2024 MPV 9.2 05/26/2024 Lab Results Component Value Date BUN 12 05/26/2024 CO2 28 05/26/2024 CALCIUM 9.1 05/26/2024 ALKPHOS 83 05/26/2024 AST 14 05/26/2024 ALT 26 05/26/2024 No results found for: INR , PROTIME WBC/Hgb/Hct/Plts: 7.35/14.2/42.0/233 (05/26 105) Bun/Creat/Cl/CO2/Glucose: 12/1.00/104/28/88 (05/26 105) Na/K+/Phos/Mg/Ca: 139/3.7/--/--/9.1 (05/26 105) All other pertinent labs were reviewed. MICRO: Abscess Cx 05/26/24 pending RECENT IMAGING: I personally reviewed the pertinent imaging and agree with the radiologist's reports listed as follows, unless otherwise indicated. CT Radius Ulna left W contrast ([facility]) 05/25/24 1. Circumferential subcutaneous fat stranding of the elbow extending into the mid forearm sparing the radial aspect compatible with cellulitis. 2. Elongated fluid collection in the subcutaneous fat overlying the proximal flexor musculature measuring 5.2 x 3.2 x 1.9 cm compatible with an abscess. 3. Edema along the fascial plane between the superficial and deep volar compartment musculature there is a possibility of fasciitis. No soft tissue gas identified to confirm a necrotizing process. Consider further evaluation with an MRI with and without contrast as clinically indicated. 4. No acute osseous abnormality. ASSESSMENT: Clover Nicolas is a 24 yo male with PMH L forearm fasciotomy/compartment release on 05/07/24 and R forearm on 03/24/24 that presented due to swelling with concern for cellulitis and an abscess s/p bedside I&D by Ortho. Post-operative cellulitis and superficial abscess of left forearm - S/p bedside I&D with cultures pending S/p LUE Fasciotomy/compartment release on 05/07/2024 CrCl cannot be calculated (Unknown ideal weight.). RECOMMENDATIONS: Diagnostics -Please follow pending cultures Therapeutics -Continue IV Vancomycin (Goal trough 10 to 15)and Pip-tazo 4.5 grams IV every 8 hours for now pending final Cx results. -Please have pharmacy help with dosing of above IV antibiotics and therapeutic drug monitoring of the IV Vancomycin. -Once we have the culture results, will provide recommendations for home going antibiotics (hopefully PO pending clinical course) Patient was staffed with Dr. Neo Cole ID Team 1 Will continue to follow with you. If you have any questions, please reach out to the ID Team 1 pager found in QHereOrTherea below. The ID Team pagers are available - Sunday through Sunday from 7:00 am to 06:00 pm. For emergent or after hour issues, please call the on-call ID Fellow pager. [facility] Infectious Disease - Pollo Mota DO Infectious Disease Fellow PGY-4 ID Staff I have discussed and examined the patient along with the ID Fellow at bedside on 05/26/2024. I agree with the ID Fellow's history, physical exam, and clinical decision making. These were corroboratedby me and modified when necessary, based on my findings. Chart, labs, micro, radiology, and vitals reviewed. Please see the ID Fellow's impressions and recommendations above as they have been modified to reflect my own when necessary. Our overall recommendations were discussed with the patient and they verbalized understanding. They were also agreeable with the plan of care. These recommendationswere relayed to the primary team. We will continue to follow along with you. Thank you Neo Cole DO Attending Physician - Infectious Diseases [phone] [facility]10-21-2024 Consult note* Pollo MotaDO - 05/26/2024 3:17 PM EDTAssociated Order(s): IP CONSULT TO INFECTIOUS DISEASE Images from the original note were not included. Infectious Diseases Team 1 Consultation History and Physical REQUESTING PHYSICIAN: Gerardo Feldman MD REASON FOR CONSULTATION: L forearm abscess s/p I&D and cultures sent ANTIMICROBIALS: Vancomycin Zosyn HISTORY OF PRESENT ILLNESS: Clover Nicolas is a 24 y.o. male with a PMH of L forearm fasciotomy/compartment release on 05/07/24 and R forearm on 03/24/24 . He presented on 05/26/2024 He initially presented to [facility] due to concern for cellulitis/abscess. He stared noticing his left forearm becoming swollen and red on 05/23. His symptoms continued to get worse so he presented to the [facility] ED for evaluation. While there he was given Toradol for pain and transferred to [facility] due to recent left arm decompression surgery. At [facility] he was evluated by Orthopedic sx who performed a bedside I&D and started Vancomycin and Zosyn. ID was consulted for antibiotic assistance. Upon ID evaluation he is sitting in the chair at bedside eating his lunch. He states that since he has been here his pain has greatly improved along with the swelling and erythema. Patients prior medical records were reviewed and summarized above. PAST MEDICAL HISTORY: No past medical history on file. PAST SURGICAL HISTORY: Past Surgical History: Procedure Laterality Date DECOMPRESSION FASCIOTOMY FOREARM HAND WRIST Left 05/07/2024 Laterality: Left; Surgeon: Gerardo Feldman MD; Location: [facility] DECOMPRESSION FASCIOTOMY FOREARM HAND WRIST Right 03/24/2024 Laterality: Right; Surgeon: Gerardo Feldman MD; Location: [facility] ALLERGIES: Patient has no known allergies. HOME MEDICATIONS: (Not in an outpatient encounter) IMMUNIZATIONS: There is no immunization history on file for this patient. SOCIAL HISTORY: Social History Tobacco Use Smoking Status Never Smokeless Tobacco Never Social History Substance and Sexual Activity Alcohol Use Yes Alcohol/week: 2.0 standard drinks of alcohol Types: 2 Standard drinks or equivalent per week Social History Substance and Sexual Activity Drug Use Not Currently FAMILY HISTORY: Reviewed, no family history of recurrent infections No family history on file. REVIEW OF SYSTEMS: Review of Systems Constitutional: Negative for chills and fever. Respiratory: Negative for cough and shortness of breath. Cardiovascular: Negative for chest pain. Gastrointestinal: Negative for abdominal distention, abdominal pain, constipation, diarrhea, nauseaand vomiting. Musculoskeletal: Negative for back pain. Skin: Positive for color change (left arm erythema improving). CURRENT MEDICATIONS reviewed: Acetaminophen 650 mg Oral Q6HNS Docusate 100 mg Oral BID piperacillin-tazobactam 4.5 g Intravenous Q8HNS vancomycin 15 mg/kg (Order-Specific) Intravenous Q12HNS PHYSICAL EXAM: Vitals: 05/26/24 0420 05/26/24 0641 05/26/24 0809 05/26/24 1146 BP: 113/61 134/66 131/62 119/55 Pulse: 85 76 99 95 Resp: 16 16 16 16 Temp: 98.7 degrees F (37.1 degrees C) 98.2 degrees F (36.8 degrees C) 99 degrees F (37.2 degrees C)98.1 degrees F (36.7 degrees C) TempSrc: Oral Oral Oral Oral SpO2: 93% 100% 99% 99% Height: Body mass index is 23.75 kg/m . Physical Exam Constitutional: General: He is not in acute distress. Appearance: He is not ill-appearing. HENT: Head: Normocephalic and atraumatic. Cardiovascular: Rate and Rhythm: Normal rate and regular rhythm. Heart sounds: No murmur heard. Pulmonary: Effort: No respiratory distress. Breath sounds: Normal breath sounds. Abdominal: General: Abdomen is flat. There is no distension. Palpations: Abdomen is soft. Tenderness: There is no abdominal tenderness. Musculoskeletal: Right lower leg: No edema. Left lower leg: No edema. Comments: Left arm wrapped Skin: General: Skin is warm and dry. Neurological: Mental Status: He is alert. LABS: Lab Results Component Value Date WBC 7.35 05/26/2024 RBC 4.79 05/26/2024 HGB 14.2 05/26/2024 HCT 42.0 05/26/2024 MCV 87.7 05/26/2024 MPV 9.2 05/26/2024 Lab Results Component Value Date BUN 12 05/26/2024 CO2 28 05/26/2024 CALCIUM 9.1 05/26/2024 ALKPHOS 83 05/26/2024 AST 14 05/26/2024 ALT 26 05/26/2024 No results found for: INR , PROTIME WBC/Hgb/Hct/Plts: 7.35/14.2/42.0/233 (05/26 105) Bun/Creat/Cl/CO2/Glucose: 12/1.00/104/28/88 (05/26 105) Na/K+/Phos/Mg/Ca: 139/3.7/--/--/9.1 (05/26 105) All other pertinent labs were reviewed. MICRO: Abscess Cx 05/26/24 pending RECENT IMAGING: I personally reviewed the pertinent imaging and agree with the radiologist's reports listed as follows, unless otherwise indicated. CT Radius Ulna left W contrast ([facility]) 05/25/24 1. Circumferential subcutaneous fat stranding of the elbow extending into the mid forearm sparing the radial aspect compatible with cellulitis. 2. Elongated fluid collection in the subcutaneous fat overlying the proximal flexor musculature measuring 5.2 x 3.2 x 1.9 cm compatible with an abscess. 3. Edema along the fascial plane between the superficial and deep volar compartment musculature there is a possibility of fasciitis. No soft tissue gas identified to confirm a necrotizing process. Consider further evaluation with an MRI with and without contrast as clinically indicated. 4. No acute osseous abnormality. ASSESSMENT: Clover Nicolas is a 24 yo male with PMH L forearm fasciotomy/compartment release on 05/07/24 and R forearm on 03/24/24 that presented due to swelling with concern for cellulitis and an abscess s/p bedside I&D by Ortho. Post-operative cellulitis and superficial abscess of left forearm - S/p bedside I&D with cultures pending S/p LUE Fasciotomy/compartment release on 05/07/2024 CrCl cannot be calculated (Unknown ideal weight.). RECOMMENDATIONS: Diagnostics -Please follow pending cultures Therapeutics -Continue IV Vancomycin (Goal trough 10 to 15)and Pip-tazo 4.5 grams IV every 8 hours for now pending final Cx results. -Please have pharmacy help with dosing of above IV antibiotics and therapeutic drug monitoring of the IV Vancomycin. -Once we have the culture results, will provide recommendations for home going antibiotics (hopefully PO pending clinical course) Patient was staffed with Dr. Neo Cole ID Team 1 Will continue to follow with you. If you have any questions, please reach out to the ID Team 1 pager found in QGenda below. The ID Team pagers are available - Sunday through Sunday from 7:00 am to 06:00 pm. For emergent or after hour issues, please call the on-call ID Fellow pager. [facility] Infectious Disease - Pollo Mota DO Infectious Disease Fellow PGY-4 ID Staff I have discussed and examined the patient along with the ID Fellow at bedside on 05/26/2024. I agree with the ID Fellow's history, physical exam, and clinical decision making. These were corroboratedby me and modified when necessary, based on my findings. Chart, labs, micro, radiology, and vitals reviewed. Please see the ID Fellow's impressions and recommendations above as they have been modified to reflect my own when necessary. Our overall recommendations were discussed with the patient and they verbalized understanding. They were also agreeable with the plan of care. These recommendationswere relayed to the primary team. We will continue to follow along with you. Thank you Neo Cole DO Attending Physician - Infectious Diseases [phone] [facility] Nurse Note* Nursing Notes - Sonal Gilliland RN - 05/26/2024 6:43 AM EDT On admission to [facility], from ED a dual RN initial assessment of skin condition was performed by DOMINIC Mendez and Jazmine Sandoval RN. Skin Assessment: Skin not within defined limits. - Wound(s) identified: Yes LDA Added:No LUE cellulitis I&D performed at bedside in ED, transferred to [facility] wrapped in angela wrap. No other wounds identified. Sonal Gilliland RN [facility]10-[facility] Emergency department Note* Felipe Johns RN - 05/26/2024 6:16 AM EDT Report given to Sonal ALFARO for [id number]. [facility]10[facility] Emergency department Note* Felipe Johns RN - 05/26/2024 6:16 AM EDT Report given to Sonal ALFARO for [id number]. * Pura Willard PA-C - 05/26/2024 12:27 AM EDT History No chief complaint on file. HPI 24 y.o. male, LT hand dominant, with hx of left exertional compartment syndrome s/p LT forearm volar superficial and volar deep fasciotomy/compartment release, LT median nerve release presents to theED for further evaluation of LT arm infection. States he has had increasing pain, swelling and erythema x 4days. Seen at [facility] yesterday (05/25) and CT done of LT radius ulna with contrast Impression 1. Circumferential subcutaneous fat stranding of the elbow extending into the mid forearm sparing the radial aspect compatible with cellulitis. 2. Elongated fluid collection in the subcutaneous fat overlying the proximal flexor musculature measuring 5.2 x 3.2 x 1.9 cm compatible with an abscess. 3. Edema along the fascial plane between the superficial and deep volar compartment musculature there is a possibility of fasciitis. No soft tissue gas identified to confirm a necrotizing process. Consider further evaluation with an MRI with and without contrast as clinically indicated. 4. No acute osseous abnormality. Pt was given Vancomycin and advised to come to [facility] for further management. He denies fever, chills, n/v/d, chest pain, SOB No past medical history on file. Past Surgical History: Procedure Laterality Date DECOMPRESSION FASCIOTOMY FOREARM HAND WRIST Left 05/07/2024 Laterality: Left; Surgeon: Gerardo Feldman MD; Location: [facility] DECOMPRESSION FASCIOTOMY FOREARM HAND WRIST Right 03/24/2024 Laterality: Right; Surgeon: Gerardo Feldman MD; Location: [facility] No family history on file. Social History Tobacco Use Smoking status: Never Smokeless tobacco: Never Vaping Use Vaping status: Never Used Substance Use Topics Alcohol use: Yes Alcohol/week: 2.0 standard drinks of alcohol Types: 2 Standard drinks or equivalent per week Drug use: Not Currently Review of Systems Constitutional: Negative for fatigue and fever. HENT: Negative. Eyes: Negative. Respiratory: Negative. Cardiovascular: Negative. Gastrointestinal: Negative. Musculoskeletal: See HPI Skin: Negative. Allergic/Immunologic: Negative. Neurological: Negative. Hematological: Negative. Psychiatric/Behavioral: Negative. Physical Exam BP 124/78 Pulse 95 Temp 97.8 F (36.6 C) Resp 18 Ht 1.905 m (6' 3 ) SpO2 98% BMI 23.75 kg/m Smoking Status Never Physical Exam Constitutional: General: He is not in acute distress. Appearance: Normal appearance. He is not ill-appearing or toxic-appearing. HENT: Head: Normocephalic and atraumatic. Nose: Nose normal. Mouth/Throat: Mouth: Mucous membranes are moist. Eyes: Extraocular Movements: Extraocular movements intact. Pupils: Pupils are equal, round, and reactive to light. Cardiovascular: Rate and Rhythm: Normal rate and regular rhythm. Pulses: Normal pulses. Pulmonary: Effort: Pulmonary effort is normal. Breath sounds: Normal breath sounds. Abdominal: General: Abdomen is flat. Palpations: Abdomen is soft. Musculoskeletal: Cervical back: Normal range of motion. Comments: LUE- Sugical wounds to LUE with erythema and swelling. No drainage from wound. +ttp to forearm. Decreaseflexion and extension of forearm. Skin: General: Skin is warm and dry. Neurological: Mental Status: He is alert. ED Course Procedures Medical Decision Making Amount and/or Complexity of Data Reviewed Labs: ordered. 24 y.o. male, LT hand dominant, with hx of left exertional compartment syndrome s/p LT forearm volar superficial and volar deep fasciotomy/compartment release, LT median nerve release presents to theED for further evaluation of LT arm infection. He arrives in NAD. Vitals are normal, he is afebrile DDX- cellulitis, abscess, bacteremia, elyte abnormality vs other Plan Labs Imaging-images pushed from [facility]- ortho hand Results for orders placed or performed during the hospital encounter of 05/26/24 COMPREHENSIVE METABOLIC PANEL Result Value Ref Range Sodium 139 135 - 145 mmol/L Potassium 3.7 3.5 - 5.0 mmol/L Chloride 104 98 - 108 mmol/L BUN 12 7 - 25 mg/dL Creatinine 1.00 0.70 - 1.30 mg/dL Glucose 88 70 - 99 mg/dL Bilirubin Total 0.5 <1.5 mg/dL Albumin 4.1 3.5 - 5.0 g/dL Total Protein 6.9 6.4 - 8.3 g/dL AST 14 10 - 39 U/L ALP 83 32 - 126 U/L Calcium 9.1 8.6 - 10.5 mg/dL CO2 28 21 - 31 mmol/L ALT 26 10 - 52 U/L Bun/Crea Ratio 12 Osmolality (Calculated) 289 278 - 305 mOsm/kg Anion Gap 11 7 - 17 mmol/L eGFR, CKD-EPI, Male >90 >=60 mL/min/1.73m2 CBC AND ELECTRONIC DIFF Result Value Ref Range WBC Count 7.35 3.73 - 10.10 K/uL RBC Count 4.79 4.38 - 5.83 M/uL Hemoglobin 14.2 13.4 - 16.8 g/dL Hematocrit 42.0 39.6 - 48.8 % Mean Cell Volume 87.7 79.0 - 94.5 fL Mean Cell Hgb 29.6 26.1 - 33.3 pg Mean Cell Hgb Conc 33.8 31.9 - 36.5 g/dL RBC Distribution 12.1 10.9 - 14.3 % Platelet Count 233 146 - 337 K/uL Mean Platelet Volume 9.2 8.7 - 12.3 fL DIFF STATUS Electronic Differential Segs + Bands Auto 52.6 % Immature Grans % 0.3 % Lymphocyte % Auto 29.1 % Monocyte % Auto 13.3 % Eosinophil % Auto 3.5 % Basophil % Auto 1.2 % Nucleated RBC 0.0 <=0.2 /100 WBC Segs + Bands,Absolute Auto 3.86 1.57 - 6.19 K/uL Immature Grans Absolute <0.04 <=0.07 K/uL Abs Lymph Auto 2.14 0.83 - 3.57 K/uL Abs [place] Auto 0.98 (H) 0.24 - 0.93 K/uL Abs Eos Auto 0.26 0.00 - 0.48 K/uL Abs Baso Auto 0.09 0.00 - 0.09 K/uL C REACTIVE PROTEIN Result Value Ref Range C Reactive Protein 56.40 (H) <10.00 mg/L SEDIMENTATION RATE, AUTOMATED Result Value Ref Range ESR Westergren 13 <15 mm/hr Labs significant for CRP 56.40 otherwise labs are unremarkable Orthohand has seen pt. Recommend Plan: - Admit to Dr. Feldman - Starting IV Vanc and Zosyn - Consult to ID for antibiotic guidance. - BID chlorhexidine soaks per RN - Pain: Multimodal - DVT ppx: Ambulation - Diet: Regular Will admit pt for further management Impression Superficial post operative abscess of LT forearm Dispo Admit This was a shared visit with Dr. Pedroza. Plan mutually devised with attending. Pura Willard PA-C 05/26/24 0253 * Abiodun Allan RN - 05/26/2024 12:15 AM EDT Reporting surgery to left forearm for compartment syndrome 05/07 and was sent here from [facility] for an eval because of the swelling and warmth to it. Denies hot flashes or chills, CP or SOB, n/v/d, also denies numbness tingling or burning in the arms as well. documented in this [facility]10-21-2024 History and physical note* Nba Hyman MD - 05/26/2024 12:53 AM EDT Images from the original note were not included. Hand Surgery Consult Note Consult indication: swelling, cellulitis and abscess to LT forearm s/p Lt forearm fasciotomy/compartment release on 05/07 CC: L arm infection. Assessment & Plan: Assessment: Clover Nicolas is a 24 y.o. male with recent volar fasciotomy release with Dr. Feldman 05/07/24 presenting with superficial abscess of the forearm. Bedside I&D performed and cultures sent. Plan: - Admit to Dr. Feldman - Starting IV Vanc and Zosyn - Consult to ID for antibiotic guidance. - BID chlorhexidine soaks per RN - Pain: Multimodal - DVT ppx: Ambulation - Diet: Regular Complexity. Any conditions listed below are present on admission unless otherwise specified. . Patient will be discussed with attending physician contract design agent in AM. Thank you for allowing Orthopaedic Surgery to participate in this patient's care. Please do not hesitate to page the on-call resident with any questions. Nba Hyman MD Bedside Procedure: Pre-Procedure Diagnosis: L volar forearm Abscess Post-Procedure Diagnosis: Same Procedure: Irrigation and Drainage Surgeon: Nba Hyman MD Anesthesia: local 1% lidocaine Patient is a 24 y.o. yo M with a L volar forearm superificial abscess. The risks, benefits and alternatives to the procedure were discussed with the patient. All of their questions were answered and informed consent was signed/verbally expressed. Pre-Procedure physical exam revealed as above. Pre-Procedure time-out was held with all involved toensure we had the proper patient and extremity. Once everyone involved was in agreement we elected to proceed. The L arm was prepped and draped in a sterile fashion. The skin was anesthesized with 1% lidocaine.A 2 cm incision was made directly over each fluctuant area using a 15 blade. The soft tissue was dissected bluntly. An abscess cavity was encountered and approximately 20 mL of serous fluid was expressed. Cultures were obtained and will be sent to the laboratory. The abscess cavity was packed with 1/2 inch iodoform packing. A sterile dressing was applied. He was neurovascularly intact on post-procedure exam. The patient tolerated the procedure without complication. History of Present Illness Colver Anne Marie Nicolas is a 24 y.o. male , L-hand dominant, with PMHx of L exertional compartment syndrome s/p release 05/07/[address] Feldman who presents to [facility] for postoperative infection to the site. Painful for the past 5 days with cellulitic appearance. Anticoagulation? - no Review of Symptoms: Pertinent items are noted in the HPI. 10 point review of systems was reviewed and negative except as noted above. Past Medical History has no past medical history on file. Allergies: has No Known Allergies. Past Surgical History has a past surgical history that includes decompression fasciotomy forearm hand wrist (Right, 03/24/2024) and decompression fasciotomy forearm hand wrist (Left, 05/07/2024). Social History Pre-injury ambulatory status: without assistive devices Patient's occupation: office work Patient living situation: With family with house Smoker: none Alcohol: social use Physical Exam alert, cooperative, no distress, appears stated age Left UE: Inspection: Healed incisions, mild surrounding cellulitis. Palpation: Full fluctuance near incision sites, mild induration. ROM: Painless ROM of all relevant joints Neurovascular: Motor was intact to AIN/Median, PIN, Radial, Ulnar. Sensations were intact to light touch involving radial, median, and ulnar nerve. Radial pulse palpable, with brisk capillary refill of <2s, comparable to contralateral extremity Relevant Vitals & Lab Results BP 124/78 Pulse 95 Temp 97.8 F (36.6 C) Resp 18 Ht 1.905 m (6' 3 ) SpO2 98% BMI 23.75 kg/m Smoking Status Never Body mass index is 23.75 kg/m . No results found for: CRP No results found for: SEDRATE [facility] Independent Imaging Review: CT L forearm with superficial volar abscess. [facility]10-[facility] History and physical note* Nba Hyman MD - 05/26/2024 12:53 AM EDT Images from the original note were not included. Hand Surgery Consult Note Consult indication: swelling, cellulitis and abscess to LT forearm s/p Lt forearm fasciotomy/compartment release on 05/07 CC: L arm infection. Assessment & Plan: Assessment: Clover Nicolas is a 24 y.o. male with recent volar fasciotomy release with Dr. Feldman 05/07/24 presenting with superficial abscess of the forearm. Bedside I&D performed and cultures sent. Plan: - Admit to Dr. Feldman - Starting IV Vanc and Zosyn - Consult to ID for antibiotic guidance. - BID chlorhexidine soaks per RN - Pain: Multimodal - DVT ppx: Ambulation - Diet: Regular Complexity. Any conditions listed below are present on admission unless otherwise specified. . Patient will be discussed with attending physician contract design agent in AM. Thank you for allowing Orthopaedic Surgery to participate in this patient's care. Please do not hesitate to page the on-call resident with any questions. Nba Hyman MD Bedside Procedure: Pre-Procedure Diagnosis: L volar forearm Abscess Post-Procedure Diagnosis: Same Procedure: Irrigation and Drainage Surgeon: Nba Hyman MD Anesthesia: local 1% lidocaine Patient is a 24 y.o. yo M with a L volar forearm superificial abscess. The risks, benefits and alternatives to the procedure were discussed with the patient. All of their questions were answered and informed consent was signed/verbally expressed. Pre-Procedure physical exam revealed as above. Pre-Procedure time-out was held with all involved toensure we had the proper patient and extremity. Once everyone involved was in agreement we elected to proceed. The L arm was prepped and draped in a sterile fashion. The skin was anesthesized with 1% lidocaine.A 2 cm incision was made directly over each fluctuant area using a 15 blade. The soft tissue was dissected bluntly. An abscess cavity was encountered and approximately 20 mL of serous fluid was expressed. Cultures were obtained and will be sent to the laboratory. The abscess cavity was packed with 1/2 inch iodoform packing. A sterile dressing was applied. He was neurovascularly intact on post-procedure exam. The patient tolerated the procedure without complication. History of Present Illness Clover Anne Marie Nicolas is a 24 y.o. male , L-hand dominant, with PMHx of L exertional compartment syndrome s/p release 05/07/[address] Feldman who presents to [facility] for postoperative infection to the site. Painful for the past 5 days with cellulitic appearance. Anticoagulation? - no Review of Symptoms: Pertinent items are noted in the HPI. 10 point review of systems was reviewed and negative except as noted above. Past Medical History has no past medical history on file. Allergies: has No Known Allergies. Past Surgical History has a past surgical history that includes decompression fasciotomy forearm hand wrist (Right, 03/24/2024) and decompression fasciotomy forearm hand wrist (Left, 05/07/2024). Social History Pre-injury ambulatory status: without assistive devices Patient's occupation: office work Patient living situation: With family with house Smoker: none Alcohol: social use Physical Exam alert, cooperative, no distress, appears stated age Left UE: Inspection: Healed incisions, mild surrounding cellulitis. Palpation: Full fluctuance near incision sites, mild induration. ROM: Painless ROM of all relevant joints Neurovascular: Motor was intact to AIN/Median, PIN, Radial, Ulnar. Sensations were intact to light touch involving radial, median, and ulnar nerve. Radial pulse palpable, with brisk capillary refill of <2s, comparable to contralateral extremity Relevant Vitals & Lab Results BP 124/78 Pulse 95 Temp 97.8 F (36.6 C) Resp 18 Ht 1.905 m (6' 3 ) SpO2 98% BMI 23.75 kg/m Smoking Status Never Body mass index is 23.75 kg/m . No results found for: CRP No results found for: SEDRATE [facility] Independent Imaging Review: CT L forearm with superficial volar abscess. [facility] Physician Emergency department Note* November E GRIS Willard - 05/26/2024 12:27 AM EDT History No chief complaint on file. HPI 24 y.o. male, LT hand dominant, with hx of left exertional compartment syndrome s/p LT forearm volar superficial and volar deep fasciotomy/compartment release, LT median nerve release presents to theED for further evaluation of LT arm infection. States he has had increasing pain, swelling and erythema x 4days. Seen at OSH yesterday (05/25) and CT done of LT radius ulna with contrast Impression 1. Circumferential subcutaneous fat stranding of the elbow extending into the mid forearm sparing the radial aspect compatible with cellulitis. 2. Elongated fluid collection in the subcutaneous fat overlying the proximal flexor musculature measuring 5.2 x 3.2 x 1.9 cm compatible with an abscess. 3. Edema along the fascial plane between the superficial and deep volar compartment musculature there is a possibility of fasciitis. No soft tissue gas identified to confirm a necrotizing process. Consider further evaluation with an MRI with and without contrast as clinically indicated. 4. No acute osseous abnormality. Pt was given Vancomycin and advised to come to [facility] for further management. He denies fever, chills, n/v/d, chest pain, SOB No past medical history on file. Past Surgical History: Procedure Laterality Date DECOMPRESSION FASCIOTOMY FOREARM HAND WRIST Left 05/07/2024 Laterality: Left; Surgeon: Gerardo Feldman MD; Location: [facility] DECOMPRESSION FASCIOTOMY FOREARM HAND WRIST Right 03/24/2024 Laterality: Right; Surgeon: Gerardo Feldman MD; Location: [facility]I No family history on file. Social History Tobacco Use Smoking status: Never Smokeless tobacco: Never Vaping Use Vaping status: Never Used Substance Use Topics Alcohol use: Yes Alcohol/week: 2.0 standard drinks of alcohol Types: 2 Standard drinks or equivalent per week Drug use: Not Currently Review of Systems Constitutional: Negative for fatigue and fever. HENT: Negative. Eyes: Negative. Respiratory: Negative. Cardiovascular: Negative. Gastrointestinal: Negative. Musculoskeletal: See HPI Skin: Negative. Allergic/Immunologic: Negative. Neurological: Negative. Hematological: Negative. Psychiatric/Behavioral: Negative. Physical Exam BP 124/78 Pulse 95 Temp 97.8 F (36.6 C) Resp 18 Ht 1.905 m (6' 3 ) SpO2 98% BMI 23.75 kg/m Smoking Status Never Physical Exam Constitutional: General: He is not in acute distress. Appearance: Normal appearance. He is not ill-appearing or toxic-appearing. HENT: Head: Normocephalic and atraumatic. Nose: Nose normal. Mouth/Throat: Mouth: Mucous membranes are moist. Eyes: Extraocular Movements: Extraocular movements intact. Pupils: Pupils are equal, round, and reactive to light. Cardiovascular: Rate and Rhythm: Normal rate and regular rhythm. Pulses: Normal pulses. Pulmonary: Effort: Pulmonary effort is normal. Breath sounds: Normal breath sounds. Abdominal: General: Abdomen is flat. Palpations: Abdomen is soft. Musculoskeletal: Cervical back: Normal range of motion. Comments: LUE- Sugical wounds to LUE with erythema and swelling. No drainage from wound. +ttp to forearm. Decreaseflexion and extension of forearm. Skin: General: Skin is warm and dry. Neurological: Mental Status: He is alert. ED Course Procedures Medical Decision Making Amount and/or Complexity of Data Reviewed Labs: ordered. 24 y.o. male, LT hand dominant, with hx of left exertional compartment syndrome s/p LT forearm volar superficial and volar deep fasciotomy/compartment release, LT median nerve release presents to theED for further evaluation of LT arm infection. He arrives in NAD. Vitals are normal, he is afebrile DDX- cellulitis, abscess, bacteremia, elyte abnormality vs other Plan Labs Imaging-images pushed from [facility]- ortho hand Results for orders placed or performed during the hospital encounter of 05/26/24 COMPREHENSIVE METABOLIC PANEL Result Value Ref Range Sodium 139 135 - 145 mmol/L Potassium 3.7 3.5 - 5.0 mmol/L Chloride 104 98 - 108 mmol/L BUN 12 7 - 25 mg/dL Creatinine 1.00 0.70 - 1.30 mg/dL Glucose 88 70 - 99 mg/dL Bilirubin Total 0.5 <1.5 mg/dL Albumin 4.1 3.5 - 5.0 g/dL Total Protein 6.9 6.4 - 8.3 g/dL AST 14 10 - 39 U/L ALP 83 32 - 126 U/L Calcium 9.1 8.6 - 10.5 mg/dL CO2 28 21 - 31 mmol/L ALT 26 10 - 52 U/L Bun/Crea Ratio 12 Osmolality (Calculated) 289 278 - 305 mOsm/kg Anion Gap 11 7 - 17 mmol/L eGFR, CKD-EPI, Male >90 >=60 mL/min/1.73m2 CBC AND ELECTRONIC DIFF Result Value Ref Range WBC Count 7.35 3.73 - 10.10 K/uL RBC Count 4.79 4.38 - 5.83 M/uL Hemoglobin 14.2 13.4 - 16.8 g/dL Hematocrit 42.0 39.6 - 48.8 % Mean Cell Volume 87.7 79.0 - 94.5 fL Mean Cell Hgb 29.6 26.1 - 33.3 pg Mean Cell Hgb Conc 33.8 31.9 - 36.5 g/dL RBC Distribution 12.1 10.9 - 14.3 % Platelet Count 233 146 - 337 K/uL Mean Platelet Volume 9.2 8.7 - 12.3 fL DIFF STATUS Electronic Differential Segs + Bands Auto 52.6 % Immature Grans % 0.3 % Lymphocyte % Auto 29.1 % Monocyte % Auto 13.3 % Eosinophil % Auto 3.5 % Basophil % Auto 1.2 % Nucleated RBC 0.0 <=0.2 /100 WBC Segs + Bands,Absolute Auto 3.86 1.57 - 6.19 K/uL Immature Grans Absolute <0.04 <=0.07 K/uL Abs Lymph Auto 2.14 0.83 - 3.57 K/uL Abs [place] Auto 0.98 (H) 0.24 - 0.93 K/uL Abs Eos Auto 0.26 0.00 - 0.48 K/uL Abs Baso Auto 0.09 0.00 - 0.09 K/uL C REACTIVE PROTEIN Result Value Ref Range C Reactive Protein 56.40 (H) <10.00 mg/L SEDIMENTATION RATE, AUTOMATED Result Value Ref Range ESR Westergren 13 <15 mm/hr Labs significant for CRP 56.40 otherwise labs are unremarkable Orth[facility]and has seen pt. Recommend Plan: - Admit to Dr. Feldman - Starting IV Vanc and Zosyn - Consult to ID for antibiotic guidance. - BID chlorhexidine soaks per RN - Pain: Multimodal - DVT ppx: Ambulation - Diet: Regular Will admit pt for further management Impression Superficial post operative abscess of LT forearm Dispo Admit This was a shared visit with Dr. Pedroza. Plan mutually devised with attending. Pura Willard PA-C 05/26/24 0253 [facility] Work Phone: [phone] Emergency department Note* Abiodun Allan RN - 05/26/2024 12:15 AM EDT Reporting surgery to left forearm for compartment syndrome 05/07 and was sent here from [facility] for an eval because of the swelling and warmth to it. Denies hot flashes or chills, CP or SOB, n/v/d, also denies numbness tingling or burning in the arms as well. 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 Patient denies severe pain or uncontrolled n/v. Vitals WNL. Instructions include follow- up appt, incision care, post-op infection signs, icing, and any/all WB restrictions. All questions answered. Pt assisted getting dressed, all belongings returned, taken to the BR to urinate, and patient taken to car via w/c. * Nursing Notes - Zora Bustamante RN - 05/07/2024 2:[address] Fan anesthesia brought to bedside to evaluate pt that has been unresponsive and has had an oral airway for over an hr in PACU. Dr Fan able to slightly rouse pt and pt opened mouth enough to get out airway. Pt still remains unable to keep eyes open or hold up head. Dr Fan asked pt about h aving any pain and pt shook head no and fell back to sleep. No orders received. * Op Note - Gerardo Feldman MD - 05/07/2024 1:36 PM EDT Preoperative Diagnoses: Left forearm exertional compartment syndrome Left proximal median nerve compression in forearm Postoperative Diagnoses: Left forearm exertional compartment syndrome Left proximal median nerve compression in forearm Procedures: Left forearm volar superficial and volar deep fasciotomy/compartment release Left median nerve release at lacertus and 2 heads of pronator and FDS arch Surgeon: Gerardo Feldman MD Slip Operator: Deborah Zavala resident Anesthesia: general with local at end EBL: 10 cc Complications: none Condition: good Specimens: none Drains: none Findings: median nerve well decompressed. Indications: this man has the above diagnoses and elected for surgery as above. He did well on the right side and has noticed significantly improved symptoms on the right side but persistent symptomson the left. The procedures were explained to the patient during the visit today. The operative details and expected post- operative course were outlined. Potential complications, including infection, pain, incomplete relief of symptoms, injury to surrounding structures such as nerves and vessels, and possibility for additional surgery were also discussed. The patient expressed a reasonable understanding of the procedure and possible complications. All questions were answered. Operative Procedure: Patient was seen in preop holding. Operative extremity was marked by surgeon. (Left side) Patient brought to the OR General anesthesia given and LMA placed Supine with arm board Arm prescrubbed and then prepped with chloroprep Draped in sterile fashion Time out performed Antibiotics given Arm exsanguinated and upper arm tourniquet raised to 250 mm hg. Total time < 1 hr We made a 6 cm incision at the proximal volar forearm just distal to the elbow flexion crease Thick flaps developed Fascia over FCR and pronator released Then found the cephalic vein and then isolated the lacertus fibrosis I released the lacertus fibrosis completely exposing the median nerve I then retracted the muscles and traced the median nerve down to the two heads of pronator and released it through here completely. I then retracted the heads of pronator and saw the FDS arch and released the proximal leading edge of it. The AIN and proper median nerve distally were both deemed to be loose now. I then did the fasciotomies through this incision I released the fascia over FCR, FCU and pronator completely I raised a skin flap distally to release it as distally as I could safely I then made a separate 7 cm incision distal 1/3 forearm Thick flaps developed here I released the fascia over FCR, PL and FDS separately I then retracted FDS radially and visualized the deep FDP muscle and released the fascia over this completely as well. I preserved the vascular pedicles as best as I could and all the motor nerves. I made sure the fasciotomies were complete and released all the way proximally and distally up to 5-6 cm prox to the wrist crease. Wounds irrigated Tourniquet deflated Hemostasis achieved Skin repaired with monocryl deep dermal and subcuticular running monocryl Dermabond applied Soft dressing applied 15 cc of 1% lido with epi and 0.5% marcaine mixed in 50/50 fashion was inviltrated subcu and deep. POSTOP PLAN Dressigns 5 days Will change postop visit to video visit at 2 wks since he lives 2 hrs away and doesn't have any sutures that need to be removed. If he is doing well on the right side, can schedule left side in future. Would recommend waiting atleast 6 wks to make sure he notices relief on the right side. May need to wait 3 mo for him to put his right forearm to the test. Attending Attestation: I, Dr. Gerardo Feldman, performed hanna aspects of the procedure and was immediately available throughout the entirety of the case. * Brief Op Note - Gerardo Feldman MD - 05/07/2024 1:36 PM EDT Clover Nicolas ([id number]) PRE OPERATIVE DIAGNOSIS Exertional compartment syndrome of upper extremity, left [M79.A12] POST OPERATIVE DIAGNOSIS Exertional compartment syndrome of upper extremity, left [M79.A12] PROCEDURE PERFORMED Procedure(s) (LRB): DECOMPRESSION FASCIOTOMY FOREARM HAND WRIST (Left) PRIMARY CLOSURE Yes INTRAOPERATIVE FINDINGS No significant abnormalities SURGEON Surgeons and Role: * Gerardo Feldman MD - Primary ANESTHESIOLOGIST Anesthesiologist: Lucy Velez MD HIDE SELECTOR: Abiodun Sierra APRN-HIDE SELECTOR SURGICAL STAFF Utilities Equipment Repairer: Radha Hall RN Scrub Person: Marilynn Mesa Fellow: Jud Velázquez MD COMPLICATIONS None ESTIMATED BLOOD LOSS Minimal SPECIMENS No specimen sent * No specimens in log * Gerardo Feldman MD May 07, 2024 1:36 PM documented [facility] Nurse Note* Nursing Notes - Zora Bustamante RN - 05/07/2024 3:00 PM EDT 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 Patient denies severe pain or uncontrolled n/v. Vitals WNL. Instructions include follow- up appt, incision care, post-op infection signs, icing, and any/all WB restrictions. All questions answered. Pt assisted getting dressed, all belongings returned, taken to the BR to urinate, and patient taken to car via w/c. [facility]10-02-2024 Nurse Note* Nursing Notes - Zora Bustamante RN - 05/07/2024 2:[address] Fan anesthesia brought to bedside to evaluate pt that has been unresponsive and has had an oral airway for over an hr in PACU. Dr Fan able to slightly rouse pt and pt opened mouth enough to get out airway. Pt still remains unable to keep eyes open or hold up head. Dr Fan asked pt about h aving any pain and pt shook head no and fell back to sleep. No orders received. [facility]10-02-2024 Surgery Postoperative evaluation and management note* Op Note - Gerardo Feldman MD - 05/07/2024 1:36 PM EDT Preoperative Diagnoses: Left forearm exertional compartment syndrome Left proximal median nerve compression in forearm Postoperative Diagnoses: Left forearm exertional compartment syndrome Left proximal median nerve compression in forearm Procedures: Left forearm volar superficial and volar deep fasciotomy/compartment release Left median nerve release at lacertus and 2 heads of pronator and FDS arch Surgeon: Gerardo Feldman MD Slip Operator: Deborah Zavala resident Anesthesia: general with local at end EBL: 10 cc Complications: none Condition: good Specimens: none Drains: none Findings: median nerve well decompressed. Indications: this man has the above diagnoses and elected for surgery as above. He did well on the right side and has noticed significantly improved symptoms on the right side but persistent symptomson the left. The procedures were explained to the patient during the visit today. The operative details and expected post-operative course were outlined. Potential complications, including infection,pain, incomplete relief of symptoms, injury to surrounding structures such as nerves and vessels, and possibility for additional surgery were also discussed. The patient expressed a reasonable understanding of the procedure and possible complications. All questions were answered. Operative Procedure: Patient was seen in preop holding. Operative extremity was marked by surgeon. (Left side) Patient brought to the OR General anesthesia given and LMA placed Supine with arm board Arm prescrubbed and then prepped with chloroprep Draped in sterile fashion Time out performed Antibiotics given Arm exsanguinated and upper arm tourniquet raised to 250 mm hg. Total time < 1 hr We made a 6 cm incision at the proximal volar forearm just distal to the elbow flexion crease Thick flaps developed Fascia over FCR and pronator released Then found the cephalic vein and then isolated the lacertus fibrosis I released the lacertus fibrosis completely exposing the median nerve I then retracted the muscles and traced the median nerve down to the two heads of pronator and released it through here completely. I then retracted the heads of pronator and saw the FDS arch and released the proximal leading edge of it. The AIN and proper median nerve distally were both deemed to be loose now. I then did the fasciotomies through this incision I released the fascia over FCR, FCU and pronator completely I raised a skin flap distally to release it as distally as I could safely I then made a separate 7 cm incision distal 1/3 forearm Thick flaps developed here I released the fascia over FCR, PL and FDS separately I then retracted FDS radially and visualized the deep FDP muscle and released the fascia over this completely as well. I preserved the vascular pedicles as best as I could and all the motor nerves. I made sure the fasciotomies were complete and released all the way proximally and distally up to 5-6 cm prox to the wrist crease. Wounds irrigated Tourniquet deflated Hemostasis achieved Skin repaired with monocryl deep dermal and subcuticular running monocryl Dermabond applied Soft dressing applied 15 cc of 1% lido with epi and 0.5% marcaine mixed in 50/50 fashion was inviltrated subcu and deep. POSTOP PLAN Dressigns 5 days Will change postop visit to video visit at 2 wks since he lives 2 hrs away and doesn't have any sutures that need to be removed. If he is doing well on the right side, can schedule left side in future. Would recommend waiting atleast 6 wks to make sure he notices relief on the right side. May need to wait 3 mo for him to put his right forearm to the test. Attending Attestation: I, Dr. Gerardo Feldman, performed hanna aspects of the procedure and was immediately available throughout the entirety of the case. 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] POST OPERATIVE DIAGNOSIS Exertional compartment syndrome of upper extremity, left [M79.A12] PROCEDURE PERFORMED Procedure(s) (LRB): DECOMPRESSION FASCIOTOMY FOREARM HAND WRIST (Left) PRIMARY CLOSURE Yes INTRAOPERATIVE FINDINGS No significant abnormalities SURGEON Surgeons and Role: * Gerardo Feldman MD - Primary ANESTHESIOLOGIST Anesthesiologist: Lucy Velez MD HIDE SELECTOR: Abiodun Sierra APRN-HIDE SELECTOR SURGICAL STAFF Utilities Equipment Repairer: Radha Hall RN Scrub Person: Marilynn Mesa Fellow: Jud Velázquez MD COMPLICATIONS None ESTIMATED BLOOD LOSS Minimal SPECIMENS No specimen sent * No specimens in log * Gerardo Feldman MD May 07, 2024 1:36 PM [facility]10-02-2024 Hospital Discharge instructions* Discharge Instructions* Jud eVlázquez MD - 05/07/2024 11:17 AM EDT [facility] Home Care after Hand or Upper Extremity Surgery 1. PAIN CONTROL Over the Counter Medications: If you are medically able to do so, take 1 Aleve 220 mg in the morning and 1 in the evening for up to 10 days after surgery. You can stop if your post-operative pain is controlled sooner. If you are medically able to do so, take Tylenol Arthritis (or any brand of acetaminophen 8-hour) every 8 hours for up to 10 days after surgery. Take no more than 4000 mg in a 24-hour period. Tylenol Arthritis plus Aleve work together as a team to make each other stronger. The maximum amount of Tylenol is 4000 mg from all sources in a 24-hour period. Remember; don t substitute any other medication for the Tylenol. It must be Tylenol (also called acetaminophen) for it to work as a team. Remember also that the Tylenol Arthritis is taken every 8 hours, or three times a day, and Aleve is only twice a day. Over the Counter Medications to take as needed: Colace: You can take this if you are taking a narcotic pain medication to prevent constipation. Hold for loose stools or diarrhea. Take 100 mg 1-2 times a day. Pepcid: You can take this while taking Naproxen/Aleve or other NSAIDs such as ibuprofen/Motrin/Advil to prevent stomach upset or Acid-reflux symptoms. Take 1 tablet 1-2 times a day. Elevation: Keep your arm elevated above the level of your heart as much as possible to prevent swelling and help with pain. Prop up your wrist on a pillow anytime you sit or lie down for the first 2 or 3 days. Ice: You can apply an ice pack for 20 minutes at a time outside of your splint or dressing (for instance on the forearm or in your arm pit.) Put a protective layer against your skin. Other medications: You may restart your own medications that you have at home as prescribed by yourrespective physicians. 2. DRESSINGS AND WOUND CARE Remove the dressings or splint in 5 days. You may cover your incision(s) with a light dressing, band-aid or leave it uncovered. Begin washing the incision(s) gently with soap and water after the dressing is removed. Pat dry with a soft towel. Do not soak your incision(s) in water including in dish water, bath tub or hot tub. Do not use creams, salves or balms on your incision(s). 3. DIET AND ACTIVITY Drink plenty of fluids and eat light meals today. Start your regular diet when you feel up to it. Work on moving your fingers, making a fist and opening the fist. Limit your activity. No heavy lifting, pushing or pulling. 4. NERVE/HAND BLOCK You may have received numbing medication as part of your anesthesia. The length of time the numbing medication will work is different for every patient. You should take pain medication before your numbing medication wears off. If you wait until the feeling returns to your arm you may find it difficult to get back ahead of the pain. 5. WHAT TO EXPECT AFTER SURGERY Pain controlled with medication, ice and elevation Minimal drainage from incision Swelling 6. WHEN TO CALL YOUR DOCTOR If you cannot get your pain under control If you have a temperature greater than 101 degrees Fahrenheit For increased amounts of redness, swelling or drainage from the incision For bleeding through your dressing Other Instructions: Please be sure to eat the day of your post op appointment before you come. This can help prevent you from feeling sick or lightheaded. Do not drive, operate equipment, sign important papers or make important decisions for 24 hours after anesthesia or while on narcotic pain medication. Smoking and all nicotine products can impair bone healing and lead to wound infections. If you smoke or use tobacco, please consider quitting or cutting back as much as possible. You should not drive if you are in a splint or sling. Contacts: If you have any questions or problems, contact your doctor s office during office hours. [facility] [address], [address] [place] [address] Phone: [phone] ([phone]). If after hours, call or the hospital miter operator at and ask for the [employer] contract design agent or go to your local or [facility] Emergency room. [facility] in this [facility]10[facility] History and physical note* Jud Velázquez MD - 05/07/2024 11:16 AM EDT Hand Surgery History and Physical CC: Left exertional compartment syndrome HPI: Clover Nicolas is a 24 y.o. male who presents to [facility] [place] for management of left exertional compartment syndrome. Reports no change in medical history or medications in the interval since last clinic visit. Medications/Allergies/Medical and Surgical History as noted in the electronic record. Physical Examination: BP 135/64 (BP Location: Left arm, BP Position: Lying) Pulse 64 Temp 98.5 F (36.9 C) (Infrared) Resp 16 Ht 1.905 m (6' 3 ) Wt 86.2 kg (190 lb) SpO2 100% BMI 23.75 kg/m Smoking Status Never , Body mass index is 23.75 kg/m . General appearance: alert, oriented, no acute distress Focused Exam: Neg tinels/phalens No atrophy Some pain with ressited pronation Some ttp over lacertus/pronator Full motion Impression: Left exertional compartment syndrome Plan: - Proceed with left forearm fasciotomy and median nerve decompression as scheduled. - Consent signed today. Jud Velázquez MD Hand & Orthopaedic Surgery Department [facility]10-02-2024 History and physical note* Jud Velázquez MD - 05/07/2024 11:16 AM EDT Hand Surgery History and Physical CC: Left exertional compartment syndrome HPI: Clover Nicolas is a 24 y.o. male who presents to [facility] [place] for management of left exertional compartment syndrome. Reports no change in medical history or medications in the interval since last clinic visit. Medications/Allergies/Medical and Surgical History as noted in the electronic record. Physical Examination: BP 135/64 (BP Location: Left arm, BP Position: Lying) Pulse 64 Temp 98.5 F (36.9 C) (Infrared) Resp 16 Ht 1.905 m (6' 3 ) Wt 86.2 kg (190 lb) SpO2 100% BMI 23.75 kg/m Smoking Status Never , Body mass index is 23.75 kg/m . General appearance: alert, oriented, no acute distress Focused Exam: Neg tinels/phalens No atrophy Some pain with ressited pronation Some ttp over lacertus/pronator Full motion Impression: Left exertional compartment syndrome Plan: - Proceed with left forearm fasciotomy and median nerve decompression as scheduled. - Consent signed today. Jud Velázquez MD Hand & Orthopaedic Surgery Department documented in this encounterHol[facility] Hospital08-19-[facility]24 Surgery Postoperative evaluation and management note* Op Note - Gerardo Feldman MD - 03/24/2024 2:31 PM EDT Preoperative Diagnoses: Right forearm exertional compartment syndrome Right proximal median nerve compression in forearm Postoperative Diagnoses: Right forearm exertional compartment syndrome Right proximal median nerve compression in forearm Procedures: Right forearm volar superficial and volar deep fasciotomy/compartment release Right median nerve release at lacertus and 2 heads of pronator and FDS arch Surgeon: Gerardo Feldman MD Slip Operator: Deborah Zavala resident Anesthesia: general with local at end EBL: 10 cc Complications: none Condition: good Specimens: none Drains: none Findings: median nerve well decompressed. Indications: this man has the above diagnoses and elected for surgery as above. The procedures wereexplained to the patient during the visit today. The operative details and expected post-operative course were outlined. Potential complications, including infection, pain, incomplete relief of symptoms, injury to surrounding structures such as nerves and vessels, and possibility for additional surgery were also discussed. The patient expressed a reasonable understanding of the procedure and possible complications. All questions were answered. Operative Procedure: Patient was seen in preop holding. Operative extremity was marked by surgeon. Patient brought to the OR General anesthesia given and LMA placed Supine with arm board Arm prescrubbed and then prepped with chloroprep Draped in sterile fashion Time out performed Antibiotics given Arm exsanguinated and upper arm tourniquet raised to 250 mm hg. Total time < 1 hr We made a 6 cm incision at the proximal volar forearm just distal to the elbow flexion crease Thick flaps developed Fascia over FCR and pronator released Then found the cephalic vein and then isolated the lacertus fibrosis I released the lacertus fibrosis completely exposing the median nerve I then retracted the muscles and traced the median nerve down to the two heads of pronator and released it through here completely. I then retracted the heads of pronator and saw the FDS arch and released the proximal leading edge of it. The AIN and proper median nerve distally were both deemed to be loose now. I then did the fasciotomies through this incision I released the fascia over FCR, FCU and pronator completely I raised a skin flap distally to release it as distally as I could safely I then made a separate 7 cm incision distal 1/3 forearm Thick flaps developed here I released the fascia over FCR, PL and FDS separately I then retracted FDS radially and visualized the deep FDP muscle and released the fascia over this completely as well. I preserved the vascular pedicles as best as I could and all the motor nerves. I made sure the fasciotomies were complete and released all the way proximally and distally up to 5-6 cm prox to the wrist crease. Wounds irrigated Tourniquet deflated Hemostasis achieved Skin repaired with monocryl deep dermal and subcuticular running monocryl Dermabond applied Soft dressing applied 15 cc of 1% lido with epi and 0.5% marcaine mixed in 50/50 fashion was inviltrated subcu and deep. POSTOP PLAN Dressigns 5 days Will change postop visit to video visit at 2 wks since he lives 2 hrs away and doesn't have any sutures that need to be removed. If he is doing well on the right side, can schedule left side in future. Would recommend waiting atleast 6 wks to make sure he notices relief on the right side. May need to wait 3 mo for him to put his right forearm to the test. Attending Attestation: I, Dr. Gerardo Feldman, performed hanna aspects of the procedure and was immediately available throughout the entirety of the case. [facility] Work Phone: 1(166) 584-990008-19-2024 Miscellaneous Notes* Op Note - Gerardo Feldman MD - 03/24/2024 2:31 PM EDT Preoperative Diagnoses: Right forearm exertional compartment syndrome Right proximal median nerve compression in forearm Postoperative Diagnoses: Right forearm exertional compartment syndrome Right proximal median nerve compression in forearm Procedures: Right forearm volar superficial and volar deep fasciotomy/compartment release Right median nerve release at lacertus and 2 heads of pronator and FDS arch Surgeon: Gerardo Feldman MD Slip Operator: Deborah Zavala resident Anesthesia: general with local at end EBL: 10 cc Complications: none Condition: good Specimens: none Drains: none Findings: median nerve well decompressed. Indications: this man has the above diagnoses and elected for surgery as above. The procedures wereexplained to the patient during the visit today. The operative details and expected post-operative course were outlined. Potential complications, including infection, pain, incomplete relief of symptoms, injury to surrounding structures such as nerves and vessels, and possibility for additional surgery were also discussed. The patient expressed a reasonable understanding of the procedure and possible complications. All questions were answered. Operative Procedure: Patient was seen in preop holding. Operative extremity was marked by surgeon. Patient brought to the OR General anesthesia given and LMA placed Supine with arm board Arm prescrubbed and then prepped with chloroprep Draped in sterile fashion Time out performed Antibiotics given Arm exsanguinated and upper arm tourniquet raised to 250 mm hg. Total time < 1 hr We made a 6 cm incision at the proximal volar forearm just distal to the elbow flexion crease Thick flaps developed Fascia over FCR and pronator released Then found the cephalic vein and then isolated the lacertus fibrosis I released the lacertus fibrosis completely exposing the median nerve I then retracted the muscles and traced the median nerve down to the two heads of pronator and released it through here completely. I then retracted the heads of pronator and saw the FDS arch and released the proximal leading edge of it. The AIN and proper median nerve distally were both deemed to be loose now. I then did the fasciotomies through this incision I released the fascia over FCR, FCU and pronator completely I raised a skin flap distally to release it as distally as I could safely I then made a separate 7 cm incision distal 1/3 forearm Thick flaps developed here I released the fascia over FCR, PL and FDS separately I then retracted FDS radially and visualized the deep FDP muscle and released the fascia over this completely as well. I preserved the vascular pedicles as best as I could and all the motor nerves. I made sure the fasciotomies were complete and released all the way proximally and distally up to 5-6 cm prox to the wrist crease. Wounds irrigated Tourniquet deflated Hemostasis achieved Skin repaired with monocryl deep dermal and subcuticular running monocryl Dermabond applied Soft dressing applied 15 cc of 1% lido with epi and 0.5% marcaine mixed in 50/50 fashion was inviltrated subcu and deep. POSTOP PLAN Dressigns 5 days Will change postop visit to video visit at 2 wks since he lives 2 hrs away and doesn't have any sutures that need to be removed. If he is doing well on the right side, can schedule left side in future. Would recommend waiting atleast 6 wks to make sure he notices relief on the right side. May need to wait 3 mo for him to put his right forearm to the test. Attending Attestation: I, Dr. Gerardo Feldman, performed hanna aspects of the procedure and was immediately available throughout the entirety of the case. * Brief Op Note - Deborah Zavala MD - 03/24/2024 1:45 PM EDT Clover Nicolas ([id number]) PRE OPERATIVE DIAGNOSIS Exertional compartment syndrome of upper extremity, right [M79.A11] POST OPERATIVE DIAGNOSIS Exertional compartment syndrome of upper extremity, right [M79.A11] PROCEDURE PERFORMED Procedure(s) (LRB): DECOMPRESSION FASCIOTOMY FOREARM HAND WRIST (Right) PRIMARY CLOSURE Yes INTRAOPERATIVE FINDINGS No significant abnormalities SURGEON Surgeons and Role: * Gerardo Feldman MD - Primary ANESTHESIOLOGIST Anesthesiologist: Matthew Lara MD HIDE SELECTOR: Cesar Berrios APRN-HIDE SELECTOR; Yani Caraballo APRN-HIDE SELECTOR SURGICAL STAFF Utilities Equipment Repairer: Zora Cr RN Scrub Person: Jennifer Scott Assisting: Deborah Zavala MD COMPLICATIONS None ESTIMATED BLOOD LOSS Minimal SPECIMENS No specimen sent * No specimens in log * Deborah Zavala MD March 24, 2024 1:45 PM [facility] Postoperative evaluation and management note* Brief Op Note - Deborah Zavala MD - 03/24/2024 1:45 PM EDT Clover Hernandezt ([id number]) PRE OPERATIVE DIAGNOSIS Exertional compartment syndrome of upper extremity, right [M79.A11] POST OPERATIVE DIAGNOSIS Exertional compartment syndrome of upper extremity, right [M79.A11] PROCEDURE PERFORMED Procedure(s) (LRB): DECOMPRESSION FASCIOTOMY FOREARM HAND WRIST (Right) PRIMARY CLOSURE Yes INTRAOPERATIVE FINDINGS No significant abnormalities SURGEON Surgeons and Role: * Gerardo Feldman MD - Primary ANESTHESIOLOGIST Anesthesiologist: Matthew Lara MD HIDE SELECTOR: Cesar Berrios APRN-HIDE SELECTOR; ALEJO HairHIDE SELECTOR SURGICAL STAFF Utilities Equipment Repairer: Zora Cr RN Scrub Person: Jennifer Scott Assisting: Deborah Zavala MD COMPLICATIONS None ESTIMATED BLOOD LOSS Minimal SPECIMENS No specimen sent * No specimens in log * Deborah Zavala MD March 24, 2024 1:45 PM [facility]08-19-2024 Nurse Surgical operation note* Zora Cr RN - 03/24/2024 1:44 PM EDT Pt transported to PACU via cart. Report given to DOMINIC Li [facility]08-19-2024 Nurse Note* Zora Cr RN - 03/24/2024 1:44 PM EDT Pt transported to PACU via cart. Report given to DOMINIC Li documented [facility] History and physical note* Deborah Zavala MD - 03/24/2024 9:39 AM EDT PERIOPERATIVE SURGICAL HISTORY AND PHYSICAL UPDATE Pre-op Diagnoses: Exertional compartment syndrome of upper extremity, right [M79.A11] Procedure(s): DECOMPRESSION FASCIOTOMY FOREARM HAND WRIST Surgeon(s): Surgeons and Role: * Gerardo Feldman MD - Primary History and Physical Update: BP 125/64 (BP Location: Left arm, BP Position: Lying) Pulse 67 Temp 98.1 F (36.7 C) (Infrared) Resp 20 Ht 1.905 m (6' 3 ) Wt 83.9 kg (185 lb) SpO2 100% BMI 23.12 kg/m Smoking Status Never I have reviewed Clover Nicolas's medical, surgical and other pertinent history, and I have updated the medication and allergy information in the computerized patient record. I have examined the patient, reviewed the previous H&P completed on date (03/04/24) and there are no changes. Written consent has been reviewed in the [facility] computerized charting system. Today's surgical history and physical update was completed by Deborah Zavala MD, 03/24/2024, 9:39 AM. [facility]-19[facility] History and physical note* Deborah Zavala MD - 03/24/2024 9:39 AM EDT PERIOPERATIVE SURGICAL HISTORY AND PHYSICAL UPDATE Pre-op Diagnoses: Exertional compartment syndrome of upper extremity, right [M79.A11] Procedure(s): DECOMPRESSION FASCIOTOMY FOREARM HAND WRIST Surgeon(s): Surgeons and Role: * Gerardo Feldman MD - Primary History and Physical Update: BP 125/64 (BP Location: Left arm, BP Position: Lying) Pulse 67 Temp 98.1 F (36.7 C) (Infrared) Resp 20 Ht 1.905 m (6' 3 ) Wt 83.9 kg (185 lb) SpO2 100% BMI 23.12 kg/m Smoking Status Never I have reviewed Clover Nicolas's medical, surgical and other pertinent history, and I have updated the medication and allergy information in the computerized patient record. I have examined the patient, reviewed the previous H&P completed on date (03/04/24) and there are no changes. Written consent has been reviewed in the [facility] computerized charting system. Today's surgical history and physical update was completed by Deborah Zavala MD, 03/24/2024, 9:39 AM. documented in this encounterHol[facility]08-[facility] Hospital Discharge instructions* Discharge Instructions* Deborah Zavala MD - 03/23/2024 8:28 PM EDT [facility] Home Care after Hand or Upper Extremity Surgery 1. PAIN CONTROL Prescription Medications: Oxycodone: this is a narcotic pain medication. It was sent electronically to your pharmacy for you to pickle maker after surgery. You may experience nausea, constipation, and/or tiredness from this medication. You should use this for breakthrough pain for the first few days. Over the Counter Medications: If you are medically able to do so, take 1 Aleve 220 mg in the morning and 1 in the evening for up to 10 days after surgery. You can stop if your post-operative pain is controlled sooner. If you are medically able to do so, take Tylenol Arthritis (or any brand of acetaminophen 8-hour) every 8 hours for up to 10 days after surgery. Take no more than 4000 mg in a 24-hour period. Tylenol Arthritis plus Aleve work together as a team to make each other stronger. The maximum amount of Tylenol is 4000 mg from all sources in a 24-hour period. Remember; don t substitute any other medication for the Tylenol. It must be Tylenol (also called acetaminophen) for it to work as a team. Remember also that the Tylenol Arthritis is taken every 8 hours, or three times a day, and Aleve is only twice a day. Over the Counter Medications to take as needed: Colace: You can take this if you are taking a narcotic pain medication to prevent constipation. Hold for loose stools or diarrhea. Take 100 mg 1-2 times a day. Pepcid: You can take this while taking Naproxen/Aleve or other NSAIDs such as ibuprofen/Motrin/Advil to prevent stomach upset or Acid-reflux symptoms. Take 1 tablet 1-2 times a day. Elevation: Keep your arm elevated above the level of your heart as much as possible to prevent swelling and help with pain. Prop up your wrist on a pillow anytime you sit or lie down for the first 2 or 3 days. Ice: You can apply an ice pack for 20 minutes at a time outside of your splint or dressing (for instance on the forearm or in your arm pit.) Put a protective layer against your skin. Other medications: You may restart your own medications that you have at home as prescribed by yourrespective physicians. 2. DRESSINGS AND WOUND CARE Remove the dressings or splint in 5 days. You may cover your incision(s) with a light dressing, band-aid or leave it uncovered. Begin washing the incision(s) gently with soap and water after the dressing is removed. Pat dry with a soft towel. Do not soak your incision(s) in water including in dish water, bath tub or hot tub. Do not use creams, salves or balms on your incision(s). 3. DIET AND ACTIVITY Drink plenty of fluids and eat light meals today. Start your regular diet when you feel up to it. Work on moving your fingers, making a fist and opening the fist. Limit your activity. No heavy lifting, pushing or pulling. 4. NERVE/HAND BLOCK You may have received a nerve block or a hand block as part of your anesthesia. If so, your arm andhand may be completely numb. If you were given a sling, use it until the block wears off, then for comfort. The length of time the block will work is different for every patient. The block often wears off suddenly and you may experience rebound pain. If this happens, do not panic. Sometimes the pain is worse when the block first wears off, then returns to a more tolerable level. You should take pain medication before your block wears off. If you wait until the feeling returns to your arm you may find it difficult to get back ahead of the pain. 5. WHAT TO EXPECT AFTER SURGERY Pain controlled with medication, ice and elevation Minimal drainage from incision Swelling 6. WHEN TO CALL YOUR DOCTOR If you cannot get your pain under control If you have a temperature greater than 101 degrees Fahrenheit For increased amounts of redness, swelling or drainage from the incision For bleeding through your dressing Other Instructions: Please be sure to eat the day of your post op appointment before you come. This can help prevent you from feeling sick or lightheaded. Do not drive, operate equipment, sign important papers or make important decisions for 24 hours after anesthesia or while on narcotic pain medication. Smoking and all nicotine products can impair bone healing and lead to wound infections. If you smoke or use tobacco, please consider quitting or cutting back as much as possible. You should not drive if you are in a splint or sling. Contacts: If you have any questions or problems, contact your doctor s office during office hours. [address], [address] [place] [address] Phone: [phone]). If after hours, call or the hospital miter operator at and ask for the HandResident contract design agent or go to your local or [facility] Emergency room. documented in this encounterHol[facility]07-[facility] History of Present illness Narrative* Gerardo Feldman MD - 03/04/2024 8:20 AM EDT The patient was seen in conjunction with the JAY, resident/fellow, or medical student. Please look at the note written by them on the same day as this note to identify their name. I independently interviewed, examined and formulated the medical decision making along with him or her. I provided a substantive portion of the care for this patient. I personally performed all aspects of the medical decision making for this encounter. I have reviewed and verified this documentation and it accurately reflects our care. 23 yo man, healthy Works in construction Used to ride dirt bikes 5-6 yrs of symptos in b/l hand pain and cramping MF/RF locking when he's riding dirt bikes R worse than left Now dropping items at work/home Has a difficulty with xbox controllers Has seen an orthopaedist 2 hrs nort Was told it could be exertional compartment syndrome, or pronator syndrome NCS was normal per patient No injections yet Per patient, xrays normal Jhas 3 symptoms: Hand numbness Forearm pain And digital flexion cramping On exam: Neg tinels/phalens No atrophy Some pain with ressited pronation Some ttp over lacertus/pronator Full motion Activities like writing, dirt bike riding, typing, holding phone all provoke these symptoms In the office he wrote some words and he had these symptoms Had some ttp over volar comprt and it does feel a little more tight compared to his softer right side He is LHD This is unusual But I think this may be exertional compartment syndrome Could do a test, but those tests aren't super sensitive and they are uncomfortable We did talk about doing this test where we measure the compartment pressures while he is exerting and not exerting himself. But even if it came back normal I am not sure that would change my management as his symptoms in his story and exam really are pointing me towards a diagnosis. In the end I did offer him occupational therapy which may be able to provide some relief with myofascial stretching or manipulation. Or a surgery where we do a fasciotomy The fasciotomy would be through a fairly large and incision across the volar aspect of his forearm we would release the median nerve both at lacertus as well as at the pronator heads in FDS arch as he does have some median nerve symptoms And then a skin only closure. We will probably use Monocryl and a running subcuticular. And then a soft dressing and then gradual return to life If he does well on this side we will do the other side General anesthesia. No nerve block. I may provide and probably will provide some local anesthetic immediately after surgery. The procedures were explained to the patient during the visit today. The operative details and expected post-operative course were outlined. Potential complications, including infection, pain, incomplete relief of symptoms, injury to surrounding structures such as nerves and vessels, and possibility for additional surgery were also discussed. The patient expressed a reasonable understanding of the procedure and possible complications. All questions were answered. documented in this encounterHolzer Hospital02-[facility]22 Evaluation note * Encounter Date Diagnosis Assessment Notes Treatment Notes Treatment Clinical Notes Sep, Sprain of interphalangeal joint of left little finger, initial encounter (ICD-10 - S63.637A) This appears to be a sprain involving the left small finger. We will begin gentle motion exercise to prevent stiffness. Discussed trinity taping and protection during more strenuous activity. Eons Other Evaluation note* Diagnosis Exertional compartment syndrome of upper extremity, right- Primary [facility] Diagnosis Post-operative pain- Primary Other acute postoperative pain Exertional compartment syndrome of upper extremity, right [facility] Diagnosis Compartment syndrome of left upper extremity, subsequent encounter- Primary [facility] Diagnosis Postoperative infection- Primary Other postoperative infection Infection of superficial incisional surgical site after procedure, initial encounter Cellulitis of left forearm Cellulitis and abscess of upper arm and forearm Staphylococcus aureus infection Methicillin susceptible Staphylococcus aureus in conditions classified elsewhere and of unspecified site Cellulitis Cellulitis and abscess of unspecified site documented [facility] this encounter [facility] noteNo assessment information available [facility] Work Phone: Reason for referral (narrative)* Unlisted Procedure Code (Routine) - New Request Specialty Diagnoses / Procedures Referred By Zakiya moraes Referred To Contact Procedures NO MECHANICAL DVT PROPHYLAXIS Gerardo Feldman MD [address] [facility] [address] [place] [address] Referral ID Status Reason Start Date Expiration Date V isits Requested Visits Authorized [id number] New Request 05/26/2024 06/20/2025 1 1 * Unlisted Procedure Code (Routine) - New Request Specialty Diagnoses / Procedures Referred By Zakiya t Referred To Contact Procedures LOW RISK - NO PHARMACOLOGICAL DVT PROPHYLAXIS Gerardo Feldman MD [address] [place] [id number] Referral ID Status Reason Start Date Expiration Date V isits Requested Visits Authorized [id number] New Request 05/26/2024 06/20/2025 1 1 * Unlisted Procedure Code (Routine) - New Request Specialty Diagnoses / Procedures Referred By Contac t Referred To Contact Procedures DVT/VTE RISK ASSESSMENT Gerardo Feldman MD [address] [place] [id number] Referral ID Status Reason Start Date Expiration Date V isits Requested Visits Authorized [id number] New Request 05/26/2024 06/20/2025 1 1 [facility] for visit Narrative* Auth/Cert Specialty Diagnoses / Procedures Referred By Contac t Referred To Contact Diagnoses Exertional compartment syndrome of upper extremity, left Exertional compartment syndrome of upper extremity, left [M79.A12] Procedures VT DCMPRN FASCT F/ARM&/WRST FLXR/XTNSR W/DBRDMT DECOMPRESSION FASCIOTOMY FOREARM HAND WRIST Gerardo Feldman MD [address] [place] [phone] [facility] [address] [place] [address] Referral ID Status Reason Start Date Expiration Date Visits Re quested Visits Authorized [id number] 1 1 [facility]* Auth/Cert Specialty Diagnoses / Procedures Referred By Contac t Referred To Contact Diagnoses Postoperative infection left arm infection [facility] [address] [place] [address] [facility] [address] [place] [address] Referral ID Status Reason Start Date Expiration Date Visits Re quested Visits Authorized [id number] 1 1 [facility] Summary Purpose Family History No Family History Records Found Relationship Condition Age at Onset Recorded Date/T danielle father Malignant neoplasm Unknown maternal grandmother High blood cholesterol Unknown paternal grandmother Cerebrovascular accident (CVA) Un known Advance Directives No Advanced Directives Records Found Date Activated Date Inactivated Comments 03/24/2024 8:33 AM Date Activated Date Inactivated Comments 05/26/2024 6:42 AM Date Activated Date Inactivated Comments 03/24/2024 8:33 AM 05/26/2024 6:42 AM Advance Directive Response Recorded Date/ Time Advance Directives No June 2:17pm Reason for Referral Specialty Diagnoses / Procedures Referred By Contac t Referred To Contact Procedures US IMAGING [facility] Rivera Diaz MD [address] [place] [address] Referral ID Status Reason Start Date Expiration Date V isits Requested Visits Authorized [id number] New Request 05/07/2024 06/01/2025 1 1 Specialty Diagnoses / Procedures Referred By Contac t Referred To Contact Procedures US IMAGING [facility] Christiano Sharp MD [address] [place] [address] Referral ID Status Reason Start Date Expiration Date V isits Requested Visits Authorized [id number] New Request 03/24/2024 04/18/2025 1 1 Chief Complaint and Reason for Visit Chief Complaint Admit Date Amb Documentation May 26, 2024 1 0:11am Anxiety/Passing out June 18, 2024 9:51am Chief Complaint Admit Date Amb Documentation May 26, 2024 1 0:11am Anxiety/Passing out June 18, 2024 9:51am Stomach Problems/Heartburn August 08, 2024 9:14am Reason for Visit Admit Date Syncope and collapse June 18, 2024 9:51am GERD (gastroesophageal reflux disease) J anuary 2024 9:14am Chief Complaint Admit Date Anxiety/Passing out June 18, 2024 9:51am Stomach Problems/Heartburn August 08, 2024 9:14am Surgical Clearance:Lumbar Microdiscectom y September 02, 2024 9:52am Additional Source Comments REASON FOR VISIT (unrecogniz ed section and content) Reason Comments Pain Numbness all fingers x 1 year Pain numbness Specialty Diagnoses / Procedures Referred By Contac t Referred To Contact Hand Diagnoses Paresthesia of hand, bilateral Lerner, Clover S, [employer]UX NETWORK ENGINEER [address] [facility] [address] [facility] [address] [place] [address] Referral ID Status Reason Start Date Expiration Date V isits Requested Visits Authorized [id number] Pending Review 02/07/2024 03/03/2025 1 1 Specialty Diagnoses / Procedures Referred By Contac t Referred To Contact Diagnoses Exertional compartment syndrome of upper extremity, 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, right [M79.A11] Procedures VT DCMPRN FASCT F/ARM&/WRST FLXR&XTNSR DBRDMT DECOMPRESSION FASCIOTOMY FOREARM HAND WRIST Gerardo Feldman MD [address] [facility] [address] [place] [address] [facility] [address] [place] [address] Referral ID Status Reason Start Date Expiration Date Visits Re quested Visits Authorized [id number] 1 1 (unrecognized sect ion and content) No Status Records FoundNo Status Records FoundNo Status Records FoundNo Status Records FoundNo Status Records FoundNo Status Records FoundNo Status Records Found INFORMATION SOURCE (unrecogn ized section and content) DATE CREATED AUTHOR 01/12/2023 [facility] DATE CREATED AUTHOR AUTHOR'S ORGANIZ ATION 01/25/2024 [facility] DATE CREATED AUTHOR AUTHOR'S ORGANIZ ATION 05/01/2024 [facility] DATE CREATED AUTHOR AUTHOR'S ORGANIZ ATION 06/05/2024 [facility] DATE CREATED AUTHOR AUTHOR'S ORGANIZ ATION 07/01/2024 [facility] DATE CREATED AUTHOR AUTHOR'S ORGANIZ ATION 07/31/2024 [facility] DATE CREATED AUTHOR AUTHOR'S ORGANIZ ATION 10/24/2024 [facility] Scheduled Active and Recently Administ ered Medications (unrecognized section and content) Medication Order 03/22/2024 03/23/2024 03/24/2024 ceFAZolin (ANCEF) 2 g in dextrose 100 mL premix IVPB (COMPLETED) 2 g, Intravenous, Administer over 30 Minutes, ONCE, 1 dose, On Sun03/24/24 at 0845, Pre-op/Pre-Proc 1216 ($$New Bag$$ - Provider: MATHEUS Woodard) Continuous Medication Order 03/22/2024 03/23/2024 03/24/2024 Lactated ringers IV solution Intravenous, at 50 mL/hr, CONTINUOUS, Starting on Sun03/24/24 at 0845, Until Sun03/24/24 at 1637, Pre-op/Pre-Proc 0844 ($$New Bag$$ - Provider: Marlen Mai, RN)1129 ($$New Bag$$ - Provider: Marlen Mai RN)1215 (Paused - Provider: MATHEUS Woodard - Comment: Switch to gravity)1216 (Restarted - Provider: MATHEUS Woodard)1322 (Anesthesia Volume Adjustment - Provider: MATHEUS Hair) PRN Medication Order 03/22/2024 03/23/2024 03/24/2024 Acetaminophen (TYLENOL) tablet 650 mg 650 mg, Oral, EVERY 4 HOURS NEEDED, Starting on Sun03/24/24 at 1317, Until Sun03/24/24 at 1637, Moderate Pain, Maximum dose of acetaminophen is 4000 mg from all sources in 24 hours., Post-op/Post-Proc bacitracin ointment (CANCELED) NEEDED, Starting on Sun03/24/24 at 1236, Until Sun03/24/24 at 1344, Intra-op/Intra-Proc 1236 (Given - Provid er: Gerardo Feldman MD - Comment: administered to sterile field) BUPivacaine (PF) (MARCAINE) 0.5 % injection (CANCELED) NEEDED, Starting on Sun03/24/24 at 1313, Until Sun03/24/24 at 1344, Intra-op/Intra-Proc 1313 (Given - Provid er: Gerardo Feldman MD) fentaNYL (SUBLIMAZE) injection 25 mcg 25 mcg, Intravenous, Administer over 2 Minutes, EVERY 5 MINUTES NEEDED, Starting on Sun03/24/24 at 1317, Until Sun03/24/24 at 1637, Moderate Pain, Severe Pain, Recovery Haloperidol lactate (HALDOL) injection 1 mg 1 mg, Intravenous, ONCE NEEDED, 1 dose, Starting on Sun03/24/24 at 1317, Until Sun03/24/24 at 1637, Nausea, FIRST line antiemetic, Do not administer within 6 hours of intra-operative dose., Recovery HYDROmorphone (DILAUDID) injection 0.5 mg 0.5 mg, Intravenous, EVERY 10 MINUTES NEEDED, 8 doses, Starting on Sun03/24/24 at 1317, Until Sun03/24/24 at 1637, Moderate Pain, Severe Pain, May give a total of 4mg in PACU., Recovery lidocaine 1% buffered in sodium bicarbonate 1-8.4 % injection SOSY 1 mL 1 mL, Intradermal, ONCE NEEDED, 1 dose, Starting on Sun03/24/24 at 0833, Until Sun03/24/24 at 1637, Other, Use for peripheral IV insertion, Use when inserting peripheral IV., Pre-op/Pre-Proc Lidocaine-epinephrine 1%-1:613532 injection (CANCELED) NEEDED, Starting on Sun03/24/24 at 1313, Until Sun03/24/24 at 1344, Intra-op/Intra-Proc 1313 (Given - Provid er: Gerardo Feldman MD) Ondansetron 4mg/2ml (ZOFRAN) injection 4 mg 4 mg, Intravenous, EVERY 4 HOURS NEEDED, Starting on Sun03/24/24 at 1317, Until Sun03/24/24 at 1637, Nausea / Vomiting, Post-op/Post-Proc oxyCODONE (ROXICODONE) tablet 10 mg(Linked Group 1) 10 mg, Oral, EVERY 4 HOURS NEEDED, Starting on Sun03/24/24 at 1317, Until Sun03/24/24 at 1637, Moderate Pain, Severe Pain, Higher dose may be administered if lower dose was previously documented as ineffective and did not result in adverse effects (RR<10, negative change in RASS of 2 or more). Decrease back to lower dose if patient has adverse effects or no PRN use in previous 12 hours. Hold for sedation., Recovery oxyCODONE (ROXICODONE) tablet 5 mg(Linked Group 1) 5 mg, Oral, EVERY 4 HOURS NEEDED, Starting on Sun03/24/24 at 1317, Until Sun03/24/24 at 1637, Moderate Pain, Severe Pain, Use as initial dose. Higher dose may be administered if lower dose was previously documented as ineffective and did not result in adverse effects (RR<10, negative change in RASS of 2 or more)., Recovery Linked Groups Order Group 1: oxyCODONE (ROXICODONE) tablet 5 mgJump to med 5 mg, Oral, EVERY 4 HOURS NEEDED, Starting on Sun03/24/24 at 1317, Until Sun03/24/24 at 1637, Moderate Pain, Severe Pain, Use as initial dose. Higher dose may be administered if lower dose was previously documented as ineffective and did not result in adverse effects (RR<10, negative change in RASS of 2 or more)., Recovery Or oxyCODONE (ROXICODONE) tablet 10 mgJump to med 10 mg, Oral, EVERY 4 HOURS NEEDED, Starting on Sun03/24/24 at 1317, Until Sun03/24/24 at 1637, Moderate Pain, Severe Pain, Higher dose may be administered if lower dose was previously documented as ineffective and did not result in adverse effects (RR<10, negative change in RASS of 2 or more). Decrease back to lower dose if patient has adverse effects or no PRN use in previous 12 hours. Hold for sedation., Recovery Scheduled Medication Order 05/05/2024 05/06/2024 05/07/2024 Acetaminophen (TYLENOL) tablet 975 mg (CANCELED) 975 mg, Oral, ONCE, 1 dose, On Sun05/07/24 at 1130, Maximum dose of acetaminophen is 4000 mg from all sources in 24 hours., Recovery 1055 (Given - Provid er: Sil Ordoñez RN) ceFAZolin (ANCEF) 2 g in dextrose 100 mL premix IVPB (COMPLETED) 2 g, Intravenous, Administer over 30 Minutes, ONCE, 1 dose, On Sun05/07/24 at 0945, Pre-op/Pre-Proc 1215 ($$New Bag$$ - Provider: Abiodun Sierra APRN-HIDE SELECTOR)1337 (Stopped - Provider: Zora Bustamante RN) Continuous Medication Order 05/05/2024 05/06/2024 05/07/2024 Lactated ringers IV solution Intravenous, at 20 mL/hr, CONTINUOUS, Starting on Sun05/07/24 at 0945, Until Sun05/07/24 at 1711, Pre-op/Pre-Proc 1025 ($$New Bag$$ - Provider: Sil Ordoñez RN)1212 (Paused - Provider: MATHEUS Sanford - Comment: Switch to gravity)1213 (Restarted - Provider: MATEHUS Sanford)1308 (Stopped - Provider: MATHEUS Sanford) PRN Medication Order 05/05/2024 05/06/2024 05/07/2024 bacitracin ointment (CANCELED) NEEDED, Starting on Sun05/07/24 at 1236, Until Sun05/07/24 at 1320, Intra-op/Intra-Proc 1236 (Given - Provid er: Gerardo Feldman MD) BUPivacaine (PF) (MARCAINE) 0.5 % injection (CANCELED) NEEDED, Starting on Sun05/07/24 at 1229, Until Sun05/07/24 at 1320, Intra-op/Intra-Proc 1229 (Given - Provid er: Gerardo Feldman MD) Haloperidol lactate (HALDOL) injection 1 mg 1 mg, Intravenous, ONCE NEEDED, 1 dose, Starting on Sun05/07/24 at 1317, Until Sun05/07/24 at 1711, Refractory Nausea/vomiting, Use if patient still experiencing nausea/vomiting after 1st and 2nd line medications. Do not administer within 6 hours of intra-operative dose., Recovery HYDROmorphone (DILAUDID) injection 0.5 mg 0.5 mg, Intravenous, EVERY 10 MINUTES NEEDED, 8 doses, Starting on Sun05/07/24 at 1317, Until Sun05/07/24 at 1711, Moderate Pain, Severe Pain, May give a total of 4mg in PACU., Recovery Lidocaine-epinephrine 1%-1:827993 injection (CANCELED) NEEDED, Starting on Sun05/07/24 at 1229, Until Sun05/07/24 at 1320, Intra-op/Intra-Proc 1229 (Given - Provid er: Gerardo Feldman MD) oxyCODONE (ROXICODONE) tablet 5 mg 5 mg, Oral, ONCE NEEDED, 1 dose, Starting on Sun05/07/24 at 1119, Until Sun05/07/24 at 1711, Moderate Pain, Recovery oxyCODONE (ROXICODONE) tablet 5 mg (COMPLETED) 5 mg, Oral, ONCE NEEDED, 1 dose, Starting on Sun05/07/24 at 1124, Until Sun05/07/24 at 1130, Moderate Pain, Pre-op/Pre-Proc 1130 (Given - Provid er: Sil Ordoñez RN) Scheduled Medication Order 05/26/2024 05/27/2024 05/28/2024 Acetaminophen (TYLENOL) tablet 650 mg 650 mg, Oral, EVERY 6 HOURS NON-STANDARD, First dose on Sun05/26/24 at 0700, Until Discontinued, Maximum dose of acetaminophen is 4000 mg from all sources in 24 hours. 0824 (Given - Provider: Jud Caldera RN)1233 (Given - Provider: Jud Caldera RN)2038 (Given - Provider: Geraldine Rucker RN) 0142 (Given - Provider: Geraldine Rucker RN)0545 (Given - Provider: Geraldine Rucker RN)1340 (Given - Provider: Jud Caldera RN)2023 (Given - Provider: Geraldine Rucker RN)2359 (Given - Provider: Geraldine Rucker RN) 0608 (Given - Provider: Geraldine Rucker RN) Docusate (COLACE) capsule 100 mg 100 mg, Oral, 2 TIMES DAILY, First dose on Sun05/26/24 at 0900, Until Discontinued 0824 (Given - Provider: Jud Caldera RN)1616 (Given - Provider: Jud Caldera RN) 0747 (Given - Provider: Jud Caldera RN)1550 (Given - Provider: Jud Caldera RN) 0803 (Not Given - Provider: Jud Caldera RN - Reason: Patient/family refused) Lidocaine 1% (PF) (XYLOCAINE MPF) 1 % injection 10 mL (COMPLETED) 10 mL, Infiltration, ONCE, 1 dose, On Sun05/26/24 at 0145 0124 (Given - Provider: Felipe Johns RN - Comment: given to MD at bedside.) Piperacillin-tazobactam (ZOSYN) 4.5 g in dextrose premix IVPB (COMPLETED) 4.5 g, Intravenous, Administer over 0.5 Hours, ONCE, 1 dose, On Sun05/26/24 at 0215, Infuse STAT doses over 30 minutes. Infuse other doses over 4 hours. Contains a penicillin., Indications: Empiric therapy 0245 ($$New Bag$$ - Provider: Felipe Johns RN)0313 (Stopped - Provider: Felipe Johns RN) Piperacillin-tazobactam (ZOSYN) 4.5 g in dextrose premix IVPB (CANCELED) 4.5 g, Intravenous, Administer over 4 Hours, EVERY 8 HOURS NON-STANDARD, First dose on Sun05/26/24 at 0900, Until Discontinued, Infuse STAT doses over 30 minutes. Infuse other doses over 4 hours. Contains a penicillin., Indications: Empiric therapy 1017 ($$New Bag$$ - Provider: Jud Caldera RN)1414 (Stopped - Provider: Shad Vazquez RN)1823 ($$New Bag$$ - Provider: Jud Caldera RN) 0147 ($$New Bag$$ - Provider: Geraldine Rucker, DOMINIC)0751 ($$New Bag$$ - Provider: Jud Caldera RN)1559 ($$New Bag$$ - Provider: Jud Caldera RN)2359 ($$New Bag$$ - Provider: Geraldine Rucker, DOMINIC) 0841 (Stopped - Provider: Jud Caldera RN) Vancomycin HCl in NaCl (Vancocin) 1,250 mg 287.5 ml premade IVPB (CANCELED) 1,250 mg (rounded from 1,293 mg = 15 mg/kg 86.2 kg Order-specific weight), Intravenous, Administer over 2 Hours, EVERY 12 HOURS NON-STANDARD, First dose on Sun05/26/24 at 0500, Until Discontinued 0504 ($$New Bag$$ - Provider: Felipe Johns RN)0556 (Rate/Dose Verify - Provider: Felipe Johns RN)0556 (Stopped - Provider: Felipe Johns RN)0557 (Restarted - Provider: Felipe Johns RN)1616 ($$New Bag$$ - Provider: Jud Caldera RN) 0547 ($$New Bag$$ - Provider: Geraldine Rucker RN) 0841 (Stopped - Provider: Jud Caldera RN) Vancomycin HCl in NaCl (Vancocin) 1,250 mg 287.5 ml premade IVPB (CANCELED) 1,250 mg (rounded from 1,293 mg = 15 mg/kg 86.2 kg Order-specific weight), Intravenous, Administer over 2 Hours, EVERY 8 HOURS NON-STANDARD, First dose (after last modification) on Sun05/27/24 at 1800, Until Discontinued 2022 ($$New Bag$$ - Provider: Geraldine Rucker RN - Comment: dose changed/waiting on pharmacy) 0351 ($$New Bag$$ - Provider: Geraldine Rucker RN)0840 (Stopped - Provider: Jud Caldera RN) PRN Medication Order 05/26/2024 05/27/2024 05/28/2024 alum/mag hydrox.-simethicone oral suspension 30 mL 30 mL, Oral, EVERY 6 HOURS NEEDED, Starting on Sun05/26/24 at 0642, Until Sun05/28/24 at 1148, Indigestion, Per 5 mL is equivalent to: (Alum-Mag Hydroxide 200-225 mg and Simethicone 20 mg) and (Alum-Mag Hydroxide 200-200 mg and Simethicone 20 mg) Benzocaine-menthol (CEPACOL) 15-3.6 MG per lozenge 1 lozenge 1 lozenge, Oral, EVERY 2 HOURS NEEDED, Starting on Sun05/26/24 at 0642, Until Sun05/28/24 at 1148, Sore Throat, Max 8 lozenges/day Due to product shortages and availability, 15-3.6 MG and 15-2.6 MG strengths of benzocaine-menthol (CEPACOL) lozenges may be used interchangeably at [facility]. 1019 (Given - Provider: Jud Caldera RN) diphenhydrAMINE (BENADRYL) injection 25 mg(Linked Group 1) 25 mg, Intravenous, EVERY 6 HOURS NEEDED, Starting on Sun05/26/24 at 0642, Until Sun05/28/24 at 1148, Itching, Do Not use in patients 70 years of age or older diphenhydrAMINE (BENADRYL) tablet 25 mg(Linked Group 1) 25 mg, Oral, EVERY 6 HOURS NEEDED, Starting on Sun05/26/24 at 0642, Until Sun05/28/24 at 1148, Itching, Do Not use in patients 70 years of age or older. faMOTIdine (PEPCID) tablet 20 mg 20 mg, Oral, EVERY 12 HOURS NEEDED, Starting on Sun05/26/24 at 0642, Until Sun05/28/24 at 1148, GI Upset Melatonin tablet 6 mg 6 mg, Oral, DAILY AT BEDTIME NEEDED, Starting on Sun05/26/24 at 0642, Until Sun05/28/24 at 1148, Insomnia Ondansetron (ZOFRAN) tablet 4 mg(Linked Group 2) 4 mg, Oral, EVERY 6 HOURS NEEDED, Starting on Sun05/26/24 at 0642, Until Sun05/28/24 at 1148, Nausea / Vomiting, 1st Line Nausea / Vomiting Ondansetron 4mg/2ml (ZOFRAN) injection 4 mg(Linked Group 2) 4 mg, Intravenous, EVERY 6 HOURS NEEDED, Starting on Sun05/26/24 at 0642, Until Sun05/28/24 at 1148, Nausea / Vomiting, 1st Line Nausea / Vomiting, If patient is unable to tolerate PO. oxyCODONE (ROXICODONE) tablet 5 mg 5 mg, Oral, EVERY 4 HOURS NEEDED, Starting on Sun05/26/24 at 0642, Until Sun05/28/24 at 1148, Mild Pain, Moderate Pain, Severe Pain, Use as initial dose. Higher dose may be administered if lower dose was previously documented as ineffective and did not result in adverse effects (RR<10, decrease in level of consciousness). 09 (Given - Provider: Jud Caldera RN)2205 (Given - Provider: Geraldine Rucker RN) 2995 (Given - Provider: Jud Caldera RN)2211 (Given - Provider: Geraldine Rucker RN) Polyvinyl Alcohol-Povidone PF (REFRESH) ophthalmic solution 1 drop 1 drop, Both Eyes, EVERY 2 HOURS NEEDED, Starting on Sun05/26/24 at 0642, Until Sun05/28/24 at 1148, Dry Eyes, Patient may self-administer. Sodium chloride 0.9% IV solution 250 mL Intravenous, at 5 mL/hr, NEEDED, Starting on Sun05/26/24 at 0642, Until Sun05/28/24 at 1148, Carrier Fluid - See Admin Inst., 250mL 0.9NS to be used as carrier fluid for intermittent small volume or piggyback medication administration as needed. Infusion rate of the carrier fluid should be set at 5 mL/hr unless the rate as the intermittent medication is less than 5 mL/hr. For intermittent medications with a rate less than 5 mL/hr set the carrier fluid at that rate of the intermittent or piggy back medication. Linked Groups Order Group 1: diphenhydrAMINE (BENADRYL) tablet 25 mgJump to med 25 mg, Oral, EVERY 6 HOURS NEEDED, Starting on Sun05/26/24 at 0642, Until Sun05/28/24 at 1148, Itching, Do Not use in patients 70 years of age or older. Or diphenhydrAMINE (BENADRYL) injection 25 mgJump to med 25 mg, Intravenous, EVERY 6 HOURS NEEDED, Starting on Sun05/26/24 at 0642, Until Sun05/28/24 at 1148, Itching, Do Not use in patients 70 years of age or older Group 2: Ondansetron (ZOFRAN) tablet 4 mgJump to med 4 mg, Oral, EVERY 6 HOURS NEEDED, Starting on Sun05/26/24 at 0642, Until Sun05/28/24 at 1148, Nausea / Vomiting, 1st Line Nausea / Vomiting Or Ondansetron 4mg/2ml (ZOFRAN) injection 4 mgJump to med 4 mg, Intravenous, EVERY 6 HOURS NEEDED, Starting on Sun05/26/24 at 0642, Until Sun05/28/24 at 1148, Nausea / Vomiting, 1st Line Nausea / Vomiting, If patient is unable to tolerate PO. Care Teams (unrecognized sec tion and content) Team Status: Active Member Role Status Dates Ion Chong MD Primary Care Provider Active Team Status: Inactive Member Role Status Dates Ion Chong MD Primary Care Provide r, Attending Provider Active Start: June 18, 2024 End: June 18, 2024 Team Status: Active Member Role Status Dates Ion Chong MD Primary Care Provider Active Start: July 15, 2024 Abelardo Vincent DO Attending Provider Active Sta rt: July 15, 2024 Team Status: Inactive Member Role Status Dates Ion Chong MD Primary Care Provide r, Attending Provider Active Start: August 08, 2024 End: August 08, 2024 Team Status: Inactive Member Role Status Dates Ion Chong MD Primary Care Provide r, Attending Provider Active Start: September 02, 2024 End: September 02, 2024 Accreditation Coordinator Relationship Specialty Start Date End Date Ion Chong MD [address] [place] [id number] PCP - General Family Medicine 03/12/24 Accreditation Coordinator Relationship Specialty Start Date End Date Ion Chong MD [address] [place] [id number] PCP - General Family Medicine 03/12/24 Accreditation Coordinator Relationship Specialty Start Date End Date Ion Chong MD [address] [place] [id number] PCP - General Family Medicine 03/12/24 Team Status: Active Member Role Status Dates Ion Chong MD Primary Care Provider Active Start: May 26, 2024 Lisa Ornelas CMA Attending Provider Active Start: May 26, 2024 Goals (unrecognized section and content) Goals may be documented in a n alternate section FOR RECORDS PERTAINING TO PATIENTS WHO ARE OR HAVE BEEN ENROLLED IN A CHEMICAL DEPENDENCY/SUBSTANCEABUSE PROGRAM, SOME INFORMATION MAY BE OMITTED. This clinical summary was aggregated from multiple sources. Caution should be exercised in using it in the provision of clinical care. This summary normalizes information from multiple sources, and as a consequence, information in this document may materially change the coding, format and clinical context of patient data. In addition, data may be omitted in some cases. CLINICAL DECISIONS SHOULD BE BASED ON THE PRIMARY CLINICAL RECORDS. [facility]. provides no warranty or guarantee of the accuracy or completeness of information in this document.
[2024-11-19 08:41] LABS: Basophils Absolute Auto 0.1 10^3/uL (0.0-0.1); Basophils Percent Auto 1.4 % (0.2-2.0); Eosinophils Absolute Auto 0.2 10^3/uL (0.0-0.7); Eosinophils Percent Auto 2.4 % (0.9-7.0); Hematocrit 46.1 % (42.0-54.0); Hemoglobin 15.7 g/dL (14.0-18.0); Immature Granulocytes Abs Auto 0.02 10^3/uL (0.00-0.03); Immature Granulocytes Pct Auto 0.3 % (0.0-0.5); Lymphocytes Absolute Auto 2.3 10^3/uL (1.2-3.8); Lymphocytes Percent Auto 36.7 % (20.5-60.0); Mean Corpuscular HGB Conc 34.1 g/dL (29.9-35.2); Mean Corpuscular Hemoglobin 29.7 pg (25.9-34.0); Mean Corpuscular Volume 87.3 fL (80.0-94.0); Monocytes Absolute Auto 0.5 10^3/uL (0.3-0.8); Monocytes Percent Auto 8.6 % (1.7-12.0); Neutrophils Absolute Auto 3.2 10^3/uL (1.4-6.5); Neutrophils Percent Auto 50.6 % (43.0-75.0); Platelet Count 267 10^3/uL (150-450); Red Blood Count 5.28 10^6/uL (4.70-6.10); Red Cell Distribution Width 12.7 % (11.0-15.0); White Blood Count 6.3 10^3/uL (4.0-11.0)
[2024-11-19] MEDS: KETOROLAC TROMETHAMINE 30 MG/ML VIAL 15 MG IVP (08:42)
[2024-11-19] MEDS: DIPHENHYDRAMINE HCL 50 MG/ML VIAL 25 MG IVP (08:42)
[2024-11-19] MEDS: METOCLOPRAMIDE HCL 10 MG/2 ML VIAL IVP (08:42)
[2024-11-19] MEDS: 0.9 % SODIUM CHLORIDE 500 ML IV (08:42)
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
--- NOTE | 2024-11-19 08:51 | CT_ITS ---
The [address] [address] Patient Name: CLOVER JEAN MRN: [id number] date: 2000 Sex: M Assigned Patient Location: ER Current Patient Location: ER Accession/Order Number: [id number] Exam Date: 11/19/2024 09:23 Report Date: 11/19/2024 09:47 At the request of: BRUNILDA COHN DO Procedure: CT cervical spine wo con CLINICAL DATA: Throbbing headache for the past [address] BRAIN WITHOUT CONTRAST: COMPARISON: None TECHNIQUE: Contiguous axial unenhanced images were obtained through the brain. This CT exam was performed using one or more following dose reduction techniques: Automated exposure control, adjustment of the mA and/or kV according to patient size, or use of iterative reconstruction technique. FINDINGS: The ventricles are normal in size and position. There are no areas of abnormal attenuation. There is no hemorrhage, mass effect or extra-axial collections. The imaged paranasal sinuses and mastoid air cells are clear. CT/CT angio head IMPRESSION: NO ACUTE INTRACRANIAL ABNORMALITY. CTA OF THE [place] WITH CONTRAST COMPARISON: None Spiral images were obtained through the [place] of [place] following 100 mL of Omnipaque 350. Sagittal, coronal and 3-D volume rendered reconstructions were reviewed. This CT exam was performed using one or more following dose reduction techniques: Automated exposure control, adjustment of the mA and/or kV according to patient size, or use of iterative reconstruction technique. The right vertebral artery tapers slightly before the confluence. The imaged vertebral, basilar and posterior cerebral arteries are otherwise unremarkable. The carotid siphons are patent. The anterior and middle cerebral arteries are within normal limits for caliber, without focal stenosis or suspected thrombosis. No aneurysms are identified. The dural venous sinuses are patent. IMPRESSION: NO SIGNIFICANT VASCULAR FINDINGS. CT CERVICAL SPINE WITHOUT CONTRAST WITH 3D RECONSTRUCTIONS: COMPARISON: None TECHNIQUE: Spiral axial unenhanced images were obtained through the cervical spine. Sagittal, coronal and 3D volume-rendered reconstructions were also reviewed. This CT exam was performed using one or more following dose reduction techniques: Automated exposure control, adjustment of the mA and/or kV according to patient size, or use of iterative reconstruction technique. FINDINGS: There is subtle levoscoliotic curvature. Alignment is maintained in the sagittal plane. No fractures are identified. There is minor asymmetric hypertrophy toward the right neural foramen at C2-3. There is associated mild to moderate foraminal encroachment. At C3-4, there is mild disco-osteophytic bulging which is asymmetric toward the right. There is additional mild to moderate foraminal encroachment at that site. The atlantoaxial relationship is maintained. No prevertebral soft tissue swelling is seen. Shotty cervical lymph nodes are present. The upper imaged lungs show mild scarring. IMPRESSION: MINOR DEGENERATIVE CHANGES. NO ACUTE BONY INJURY. Impression dictated by: Edith Dc M.D.11/19/2024 9:47 AM Dictation Location: [place] [address] Electronically authenticated by: [id number] Y Date: 11/19/2024 09:47
[2024-11-19 08:58] LABS: Alanine Aminotransferase 83 U/L (16-63); Albumin Level 3.6 g/dL (3.4-5.0); Alkaline Phosphatase 122 U/L (46-116); Anion Gap 11.3; Aspartate Amino Transferase 26 U/L (15-37); BUN Creatinine Ratio 15.3; Bilirubin Total 0.3 mg/dL (0.2-1.0); Calcium 8.9 mg/dL (8.5-10.1); Carbon Dioxide 26.8 mmol/L (21.0-32.0); Chloride 106 mmol/L (98-107); Estimated GFR (African America >60 (>=60 mL/min/1.73m^2); Estimated GFR (Non-African Ame >60 (>=60 mL/min/1.73m^2); Globulin 3.7 g/dL; Glucose 106 mg/dL (74-106); Potassium 4.1 mmol/L (3.5-5.1); Sodium 140 mmol/L (136-145); Total Protein 7.3 g/dL (6.4-8.2)
== END 2024-11-19 10:05 | disposition home or self-care (01) ==
PROVIDERS: Emergency Provider Emergency Medicine; PCP Family Medicine
DX: R51.9 Headache, unspecified (principal)
CPT/HCPCS: 36415; 70450; 70496; 72125; 80053; 85025; 96374; 96375; 99284; J1200; J1885; J2765; Q9967

== ENCOUNTER 2025-04-05 07:45 | Emergency (ER) | payer BC, SELFPAY ==
[2025-04-05 07:50] VITALS: BP 119/79; PULSE 69; TEMP 36.6; O2SAT 100; BMI 25.0
--- OUTSIDE RECORDS SUMMARY | 2025-04-05 07:57 | XMS_ITS | CCD ---
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 Performed By: #### L [id number] #### [facility] (DEFAULT) [address] [place] [address] Immature Grans Absolute < Normal <=0.07 [facility] Comment on above: Performed By: #### L [id number] #### [facility] (DEFAULT) [address] [place] [address] Lymphocytes (Bld) [#/Vol] 2.03 10*3/uL Normal 0.83-3.57 [facility] Comment on above: Performed By: #### L [id number] #### [facility] (DEFAULT) [address] [address] Lymphocytes/100 WBC (Bld) 27.5 % Normal [facility] Comment on above: Performed By: #### L [id number] #### [facility] (DEFAULT) [address] [address] MCV (RBC) [Entitic vol] 87.2 fL Normal 79.0-94.5 [facility] Comment on above: Performed By: #### L [id number] #### [facility] (DEFAULT) [address] [address] Mean Cell Hgb 29.8 pg Normal 26.1-33.3 [facility] Comment on above: Performed By: #### L [id number] #### [facility] (DEFAULT) [address] [address] Mean Cell Hgb Conc 34.2 g/dL Normal 31.9-36.5 [facility] Comment on above: Performed By: #### L [id number] #### [facility] (DEFAULT) [address] [address] Monocytes (Bld) [#/Vol] 0.75 10*3/uL Normal 0.24-0.93 [facility] Comment on above: Performed By: #### L [id number] #### [facility] (DEFAULT) [address] [place] [address] Monocytes/100 WBC (Bld) 10.2 % Normal [facility] Comment on above: Performed By: #### L [id number] #### [facility] (DEFAULT) [address] [place] [address] Nucleated RBC 0.0 /100 WBC Normal <=0.2 [facility] Comment on above: Performed By: #### L [id number] #### [facility] (DEFAULT) [address] [place] [address] Platelet mean volume (Bld) [Entitic vol] 9.1 fL Normal 8.7-12.3 [facility] Comment on above: Performed By: #### L [id number] #### [facility] (DEFAULT) [address] [place] [address] Platelets (Bld) [#/Vol] 251 10*3/uL Normal 146-337 [facility] Comment on above: Performed By: #### L [id number] #### [facility] (DEFAULT) [address] [place] [address] RBC (Bld) [#/Vol] 4.60 10*6/uL Normal 4.38-5.83 [facility] Comment on above: Performed By: #### L [id number] #### [facility] (DEFAULT) [address] [place] [address] RBC Distribution 12.1 % Normal 10.9-14.3 [facility] Comment on above: Performed By: #### L [id number] #### [facility] (DEFAULT) [address] [place] [address] Segs + Bands Auto 56.7 % Normal [facility] Comment on above: Performed By: #### L [id number] #### [facility] (DEFAULT) [address] [place] [address] Segs + Bands,Absolute Auto 4.19 K/uL Normal 1.57-6.19 [facility] Comment on above: Performed By: #### L [id number] #### [facility] (DEFAULT) [address] [place] [address] WBC (Bld) [#/Vol] 7.38 10*3/uL Normal 3.73-10.10 [facility] Comment on above: Performed By: #### L [id number] #### [facility] (DEFAULT) [address] [place] [address] CHEM 7 (LYTES,BUN,CREA,GLUC) on 05-28-2024 Anion gap [Moles/Vol] 14 mmol/L 7 - 17 mmol/L [facility] Chloride [Moles/Vol] 105 mmol/L 98 - 108 mmol/L [facility] CO2 [Moles/Vol] 24 mmol/L 21 - 31 mmol/L [facility] Creatinine [Mass/Vol] 1.13 mg/dL 0.70 - 1.30 mg/dL [facility] eGFR, CKD-EPI, Male - PINF [facility] Comment on above: Reported eGFR is bas ed on the CKD-EPI 2020 equation using creatinine, age, and sex. Glucose [Mass/Vol] 105 mg/dL High 70 - 99 mg/dL [facility] Interpretation and review of laboratory results Abnormal [facility] Osmolality Calc [Osmolality] 289 [facility] Potassium [Moles/Vol] 3.7 mmol/L 3.5 - 5.0 mmol/L [facility] Sodium [Moles/Vol] 139 mmol/L 135 - 145 mmol/L [facility] Urea nitrogen [Mass/Vol] 9 mg/dL 7 - 25 mg/dL [facility] Urea nitrogen/Creatinine [Mass ratio] 8 mg/mg [facility] Anion gap [Moles/Vol] 14 mmol/L Normal 7-17 [facility] Comment on above: Performed By: #### C HM7 #### [facility] (DEFAULT) [address] [place] [address] Chloride [Moles/Vol] 105 mmol/L Normal 98-108 [facility] Comment on above: Performed By: #### C HM7 #### [facility] (DEFAULT) [address] [place] [address] CO2 [Moles/Vol] 24 mmol/L Normal 21-31 [facility] Comment on above: Performed By: #### C HM7 #### [facility] (DEFAULT) [address] [place] [address] Creatinine [Mass/Vol] 1.13 mg/dL Normal 0.70-1.30 [facility] Comment on above: Performed By: #### C HM7 #### [facility] (DEFAULT) [address] [place] [address] eGFR, CKD-EPI, Male > Normal >=60 [facility] Comment on above: Result Comment: Repo rted eGFR is based on the CKD-EPI 2020 equation using creatinine, age, and sex. Performed By: #### C HM7 #### [facility] (DEFAULT) [address] [place] [address] Glucose [Mass/Vol] 105 mg/dL High 70-99 [facility] Comment on above: Performed By: #### C HM7 #### [facility] (DEFAULT) [address] [place] [address] Osmolality [Osmolality] 289 mosm/kg Normal 278-305 [facility] Comment on above: Performed By: #### C HM7 #### [facility] (DEFAULT) [address] [place] [address] Potassium [Moles/Vol] 3.7 mmol/L Normal 3.5-5.0 [facility] Comment on above: Performed By: #### C HM7 #### [facility] (DEFAULT) [address] [place] [address] Sodium [Moles/Vol] 139 mmol/L Normal 135-145 [facility] Comment on above: Performed By: #### C HM7 #### [facility] (DEFAULT) [address] [place] [address] Urea nitrogen [Mass/Vol] 9 mg/dL Normal 7-25 [facility] Comment on above: Performed By: #### C HM7 #### [facility] (DEFAULT) [address] [place] [address] Urea nitrogen/Creatinine [Mass ratio] 8 mg/mg Normal [facility] Comment on above: Performed By: #### C HM7 #### [facility] (DEFAULT) [address] [place] [address] CBC AND ELECTRONIC DIFFon Basophils (Bld) [#/Vol] 0.06 10*3/uL 0.00 - 0.09 K/uL [facility] Basophils/100 WBC (Bld) 0.8 % [facility] Differential cell count method Nom (Bld) Electronic Differential [facility] Eosinophils (Bld) [#/Vol] 0.23 10*3/uL 0.00 - 0.48 K/uL [facility] Eosinophils/100 WBC (Bld) 3.2 % [facility] Erythrocyte distribution width (RBC) [Ratio] 12.1 % 10.9 - 14.3 % [facility] Hematocrit (Bld) [Volume fraction] 41.6 % 39.6 - 48.8 % [facility] Hemoglobin (Bld) [Mass/Vol] 13.8 g/dL 13.4 - 16.8 g/dL [facility] Immature granulocytes (Bld) [#/Vol] 0.08 10*3/uL High NINF - 0.07 K/uL [facility] Immature granulocytes/100 WBC (Bld) 1.1 % [facility] Interpretation and review of laboratory results Abnormal [facility] Lymphocytes (Bld) [#/Vol] 1.97 10*3/uL 0.83 - 3.57 K/uL [facility] Lymphocytes/100 WBC (Bld) 27.8 % [facility] MCH (RBC) [Entitic mass] 29.4 pg 26.1 - 33.3 pg [facility] MCHC (RBC) [Mass/Vol] 33.2 g/dL 31.9 - 36.5 g/dL [facility] MCV (RBC) [Entitic vol] 88.5 fL 79.0 - 94.5 fL [facility] Monocytes (Bld) [#/Vol] 0.99 10*3/uL High 0.24 - 0.93 K/uL [facility] Monocytes/100 WBC (Bld) 14.0 % [facility] Neutrophils (Bld) [#/Vol] 3.76 10*3/uL 1.57 - 6.19 K/uL [facility] Nucleated RBC/100 WBC (Bld) [Ratio] 0.0 % NINF [facility] Platelet mean volume (Bld) [Entitic vol] 9.0 fL 8.7 - 12.3 fL [facility] Platelets (Bld) [#/Vol] 226 10*3/uL 146 - 337 K/uL [facility] RBC (Bld) [#/Vol] 4.70 10*6/uL [facility] Segmented neutrophils/100 WBC (Bld) 53.1 % [facility] WBC (Bld) [#/Vol] 7.09 10*3/uL 3.73 - 10. 10 K/uL [facility] Basophils (Bld) [#/Vol] 0.06 10*3/uL Normal 0.00-0.09 [facility] Comment on above: Performed By: #### L [id number] #### [facility] (DEFAULT) [address] [place] [address] Basophils/100 WBC (Bld) 0.8 % Normal [facility] Comment on above: Performed By: #### L [id number] #### [facility] (DEFAULT) [address] [place] [address] DIFF STATUS Electronic Differential Normal [facility] Comment on above: Performed By: #### L [id number] #### [facility] (DEFAULT) [address] [place] [address] Eosinophils (Bld) [#/Vol] 0.23 10*3/uL Normal 0.00-0.48 [facility] Comment on above: Performed By: #### L [id number] #### [facility] (DEFAULT) [address] [place] [address] Eosinophils/100 WBC (Bld) 3.2 % Normal [facility] Comment on above: Performed By: #### L [id number] #### [facility] (DEFAULT) [address] [place] [address] Hematocrit (Bld) [Volume fraction] 41.6 % Normal 39.6-48.8 [facility] Comment on above: Performed By: #### L [id number] #### [facility] (DEFAULT) [address] [place] [address] Hemoglobin (Bld) [Mass/Vol] 13.8 g/dL Normal 13.4-16.8 [facility] Comment on above: Performed By: #### L [id number] #### [facility] (DEFAULT) [address] [address] Immature Grans % 1.1 % Normal [facility] Comment on above: Performed By: #### L [id number] #### [facility] (DEFAULT) [address] [place] [address] Immature Grans Absolute 0.08 K/uL High <=0.07 [facility] Comment on above: Performed By: #### L [id number] #### [facility] (DEFAULT) [address] [place] [address] Lymphocytes (Bld) [#/Vol] 1.97 10*3/uL Normal 0.83-3.57 [facility] Comment on above: Performed By: #### L [id number] #### [facility] (DEFAULT) [address] [place] [address] Lymphocytes/100 WBC (Bld) 27.8 % Normal [facility] Comment on above: Performed By: #### L [id number] #### [facility] (DEFAULT) [address] [place] [address] MCV (RBC) [Entitic vol] 88.5 fL Normal 79.0-94.5 [facility] Comment on above: Performed By: #### L [id number] #### [facility] (DEFAULT) [address] [address] Mean Cell Hgb 29.4 pg Normal 26.1-33.3 [facility] Comment on above: Performed By: #### L [id number] #### [facility] (DEFAULT) [address] [place] [address] Mean Cell Hgb Conc 33.2 g/dL Normal 31.9-36.5 [facility] Comment on above: Performed By: #### L [id number] #### [facility] (DEFAULT) [address] [address] Monocytes (Bld) [#/Vol] 0.99 10*3/uL High 0.24-0.93 [facility] Comment on above: Performed By: #### L [id number] #### [facility] (DEFAULT) [address] [place] [address] Monocytes/100 WBC (Bld) 14.0 % Normal [facility] Comment on above: Performed By: #### L [id number] #### [facility] (DEFAULT) [address] [address] Nucleated RBC 0.0 /100 WBC Normal <=0.2 [facility] Comment on above: Performed By: #### L [id number] #### [facility] (DEFAULT) [address] [place] [address] Platelet mean volume (Bld) [Entitic vol] 9.0 fL Normal 8.7-12.3 [facility] Comment on above: Performed By: #### L [id number] #### [facility] (DEFAULT) [address] [place] [address] Platelets (Bld) [#/Vol] 226 10*3/uL Normal 146-337 [facility] Comment on above: Performed By: #### L [id number] #### [facility] (DEFAULT) [address] [place] [address] RBC (Bld) [#/Vol] 4.70 10*6/uL Normal 4.38-5.83 [facility] Comment on above: Performed By: #### L [id number] #### [facility] (DEFAULT) [address] [place] [address] RBC Distribution 12.1 % Normal 10.9-14.3 [facility] Comment on above: Performed By: #### L [id number] #### [facility] (DEFAULT) [address] [place] [address] Segs + Bands Auto 53.1 % Normal [facility] Comment on above: Performed By: #### L [id number] #### [facility] (DEFAULT) [address] [place] [address] Segs + Bands,Absolute Auto 3.76 K/uL Normal 1.57-6.19 [facility] Comment on above: Performed By: #### L [id number] #### [facility] (DEFAULT) [address] [place] [address] WBC (Bld) [#/Vol] 7.09 10*3/uL Normal 3.73-10.10 [facility] Comment on above: Performed By: #### L [id number] #### [facility] (DEFAULT) [address] [place] [address] CHEM 7 (LYTES,BUN,CREA,GLUC) on 05-27-2024 Anion gap [Moles/Vol] 13 mmol/L 7 - 17 mmol/L [facility] Chloride [Moles/Vol] 106 mmol/L 98 - 108 mmol/L [facility] CO2 [Moles/Vol] 24 mmol/L 21 - 31 mmol/L [facility] Creatinine [Mass/Vol] 1.01 mg/dL 0.70 - 1.30 mg/dL [facility] eGFR, CKD-EPI, Male - PINF [facility] Comment on above: Reported eGFR is bas ed on the CKD-EPI 2020 equation using creatinine, age, and sex. Glucose [Mass/Vol] 101 mg/dL High 70 - 99 mg/dL [facility] Interpretation and review of laboratory results Abnormal [facility] Osmolality Calc [Osmolality] 289 [facility] Potassium [Moles/Vol] 3.9 mmol/L 3.5 - 5.0 mmol/L [facility] Sodium [Moles/Vol] 139 mmol/L 135 - 145 mmol/L [facility] Urea nitrogen [Mass/Vol] 8 mg/dL 7 - 25 mg/dL [facility] Urea nitrogen/Creatinine [Mass ratio] 8 mg/mg [facility] Anion gap [Moles/Vol] 13 mmol/L Normal 7-17 [facility] Comment on above: Performed By: #### C HM7 #### [facility] (DEFAULT) [address] [place] [address] Chloride [Moles/Vol] 106 mmol/L Normal 98-108 [facility] Comment on above: Performed By: #### C HM7 #### [facility] (DEFAULT) [address] [place] [address] CO2 [Moles/Vol] 24 mmol/L Normal 21-31 [facility] Comment on above: Performed By: #### C HM7 #### [facility] (DEFAULT) [address] [place] [address] Creatinine [Mass/Vol] 1.01 mg/dL Normal 0.70-1.30 [facility] Comment on above: Performed By: #### C HM7 #### [facility] (DEFAULT) [address] [place] [address] eGFR, CKD-EPI, Male > Normal >=60 [facility] Comment on above: Result Comment: Repo rted eGFR is based on the CKD-EPI 2020 equation using creatinine, age, and sex. Performed By: #### C HM7 #### [facility] (DEFAULT) [address] [place] [address] Glucose [Mass/Vol] 101 mg/dL High 70-99 [facility] Comment on above: Performed By: #### C HM7 #### [facility] (DEFAULT) [address] [place] [address] Osmolality [Osmolality] 289 mosm/kg Normal 278-305 [facility] Comment on above: Performed By: #### C HM7 #### [facility] (DEFAULT) [address] [place] [address] Potassium [Moles/Vol] 3.9 mmol/L Normal 3.5-5.0 [facility] Comment on above: Performed By: #### C HM7 #### [facility] (DEFAULT) [address] [place] [address] Sodium [Moles/Vol] 139 mmol/L Normal 135-145 [facility] Comment on above: Performed By: #### C HM7 #### [facility] (DEFAULT) [address] [place] [address] 70765 Urea nitrogen [Mass/Vol] 8 mg/dL Normal 7-25 [facility] Comment on above: Performed By: #### C HM7 #### [facility] (DEFAULT) [address] [place] [address] Urea nitrogen/Creatinine [Mass ratio] 8 mg/mg Normal [facility] Comment on above: Performed By: #### C HM7 #### [facility] (DEFAULT) [address] [place] [address]282 VANCOMYCIN LEVEL, TROUGH (IN E DRUG LEVEL)on 05-27-2024 Interpretation and review of laboratory results Abnormal [facility] Vancomycin trough [Mass/Vol] 6.2 ug/mL Low Therapeutic Range: 10.0-20.0 mcg/mL mcg/mL [facility] Vancomycin, Trough 6.2 mcg/mL Low Therapeut ic Range: 10.0-20.0 mcg/mL [facility] Comment on above: Order Comment: Pleas e draw level at specified interval PRIOR to next dose. Performed By: #### V ANCTR #### [facility] (DEFAULT) [address] [address] ANAEROBE CULTUREon 4 Bacteria identified Cx Nom (Unsp spec) No anaerobic growth Normal [facility] Comment on above: Order Comment: Colle ct fluids or tissues in a sterile container. If collecting swabs, must be collected in a Port-A-Cul tube. Performed By: #### C HM7 #### [facility] (DEFAULT) [address] [address] BACTERIAL CULTURE AND DIRECT SMEAR, LESION, TISSUE, DEVICEon 05-26-2024 Clindamycin [Susceptibility] 0.25 ug/mL Invalid Interpretation Code [facility] Comment on above: Performed By: #### C HM7 #### [facility] (DEFAULT) [address] [address] Oxacillin [Susceptibility] by Minimum inhibitory concentration (SINGH) 0.5 ug/mL Invalid Interpretation Code [facility] Comment on above: Performed By: #### C HM7 #### [facility] (DEFAULT) [address] [address] rifAMPin [Susceptibility] by Minimum inhibitory concentration (SINGH) <= Invalid Interpretation Code [facility] Comment on above: Result Comment: Rifa mpin must never be used as monotherapy for Staphylococcal infection because of the rapid emergence of resistance. Performed By: #### C HM7 #### [facility] (DEFAULT) [address] [address] Tetracycline [Susceptibility] <= Invalid Interpretation Code [facility] Comment on above: Result Comment: Doxy cycline/minocycline S. aureus susceptibility can be inferred from the tetracycline SINGH when tetracycline susceptible Performed By: #### C HM7 #### [facility] (DEFAULT) [address] [place] [address] Trimethoprim+Sulfam ethoxazole [Susceptibility] <= Invalid Interpretation Code [facility] [facility] Comment on above: Performed By: #### C HM7 #### [facility] (DEFAULT) [address] [place] [address] C REACTIVE PROTEINon 024 CRP High sensitivity method [Mass/Vol] 56.40 mg/L High NINF - 10.00 mg/L [facility] Interpretation and review of laboratory results Abnormal [facility] CRP [Mass/Vol] 56.40 mg/L High <10.00 [facility] Comment on above: Performed By: #### C RP #### [facility] (DEFAULT) [address] [place] [address] CBC AND ELECTRONIC DIFFon Basophils (Bld) [#/Vol] 0.09 10*3/uL 0.00 - 0.09 K/uL [facility] Basophils/100 WBC (Bld) 1.2 % [facility] Differential cell count method Nom (Bld) Electronic Differential [facility] Eosinophils (Bld) [#/Vol] 0.26 10*3/uL 0.00 - 0.48 K/uL [facility] Eosinophils/100 WBC (Bld) 3.5 % [facility] Erythrocyte distribution width (RBC) [Ratio] 12.1 % 10.9 - 14.3 % [facility] Hematocrit (Bld) [Volume fraction] 42.0 % 39.6 - 48.8 % [facility] Hemoglobin (Bld) [Mass/Vol] 14.2 g/dL 13.4 - 16.8 g/dL [facility] Immature granulocytes (Bld) [#/Vol] K/uL NINF - 0.07 K/uL [facility] Immature granulocytes/100 WBC (Bld) 0.3 % [facility] Interpretation and review of laboratory results Abnormal [facility] Lymphocytes (Bld) [#/Vol] 2.14 10*3/uL 0.83 - 3.57 K/uL [facility] Lymphocytes/100 WBC (Bld) 29.1 % [facility] MCH (RBC) [Entitic mass] 29.6 pg 26.1 - 33.3 pg [facility] MCHC (RBC) [Mass/Vol] 33.8 g/dL 31.9 - 36.5 g/dL [facility] MCV (RBC) [Entitic vol] 87.7 fL 79.0 - 94.5 fL [facility] Monocytes (Bld) [#/Vol] 0.98 10*3/uL High 0.24 - 0.93 K/uL [facility] Monocytes/100 WBC (Bld) 13.3 % [facility] Neutrophils (Bld) [#/Vol] 3.86 10*3/uL 1.57 - 6.19 K/uL [facility] Nucleated RBC/100 WBC (Bld) [Ratio] 0.0 % [facility] Platelet mean volume (Bld) [Entitic vol] 9.2 fL 8.7 - 12.3 fL [facility] Platelets (Bld) [#/Vol] 233 10*3/uL 146 - 337 K/uL [facility] RBC (Bld) [#/Vol] 4.79 10*6/uL [facility] Segmented neutrophils/100 WBC (Bld) 52.6 % [facility] WBC (Bld) [#/Vol] 7.35 10*3/uL 3.73 - 10. 10 K/uL [facility] Basophils (Bld) [#/Vol] 0.09 10*3/uL Normal 0.00-0.09 [facility] Comment on above: Performed By: #### L [id number] #### [facility] (DEFAULT) [address] [place] [address] Basophils/100 WBC (Bld) 1.2 % Normal [facility] Comment on above: Performed By: #### L [id number] #### [facility] (DEFAULT) [address] [place] [address] DIFF STATUS Electronic Differential Normal [facility] Comment on above: Performed By: #### L [id number] #### U [facility] (DEFAULT) [address] [place] [address] Eosinophils (Bld) [#/Vol] 0.26 10*3/uL Normal 0.00-0.48 [facility] Comment on above: Performed By: #### L [id number] #### [facility] (DEFAULT) [address] [address] Eosinophils/100 WBC (Bld) 3.5 % Normal [facility] Comment on above: Performed By: #### L [id number] #### [facility] (DEFAULT) [address] [place] [address] Hematocrit (Bld) [Volume fraction] 42.0 % Normal 39.6-48.8 [facility] Comment on above: Performed By: #### L [id number] #### [facility] (DEFAULT) [address] [address] Hemoglobin (Bld) [Mass/Vol] 14.2 g/dL Normal 13.4-16.8 [facility] Comment on above: Performed By: #### L [id number] #### [facility] (DEFAULT) [address] [address] Immature Grans % 0.3 % Normal [facility] Comment on above: Performed By: #### L [id number] #### [facility] (DEFAULT) [address] [place] [address] Immature Grans Absolute < Normal <=0.07 [facility] Comment on above: Performed By: #### L [id number] #### [facility] (DEFAULT) [address] [place] [address] Lymphocytes (Bld) [#/Vol] 2.14 10*3/uL Normal 0.83-3.57 [facility] Comment on above: Performed By: #### L [id number] #### [facility] (DEFAULT) [address] [place] [address] Lymphocytes/100 WBC (Bld) 29.1 % Normal [facility] Comment on above: Performed By: #### L [id number] #### [facility] (DEFAULT) [address] [address] MCV (RBC) [Entitic vol] 87.7 fL Normal 79.0-94.5 [facility] Comment on above: Performed By: #### L [id number] #### [facility] (DEFAULT) [address] [address] Mean Cell Hgb 29.6 pg Normal 26.1-33.3 [facility] Comment on above: Performed By: #### L [id number] #### [facility] (DEFAULT) [address] [address] Mean Cell Hgb Conc 33.8 g/dL Normal 31.9-36.5 [facility] Comment on above: Performed By: #### L [id number] #### [facility] (DEFAULT) [address] [address] Monocytes (Bld) [#/Vol] 0.98 10*3/uL High 0.24-0.93 [facility] Comment on above: Performed By: #### L [id number] #### [facility] (DEFAULT) [address] [address] Monocytes/100 WBC (Bld) 13.3 % Normal [facility] Comment on above: Performed By: #### L [id number] #### [facility] (DEFAULT) [address] [address] Nucleated RBC 0.0 /100 WBC Normal <=0.2 [facility] Comment on above: Performed By: #### L [id number] #### [facility] (DEFAULT) [address] [address] Platelet mean volume (Bld) [Entitic vol] 9.2 fL Normal 8.7-12.3 [facility] Comment on above: Performed By: #### L [id number] #### [facility] (DEFAULT) [address] [place] [address] Platelets (Bld) [#/Vol] 233 10*3/uL Normal 146-337 [facility] Comment on above: Performed By: #### L [id number] #### [facility] (DEFAULT) [address] [address] RBC (Bld) [#/Vol] 4.79 10*6/uL Normal 4.38-5.83 [facility] Comment on above: Performed By: #### L [id number] #### [facility] (DEFAULT) [address] [address] RBC Distribution 12.1 % Normal 10.9-14.3 [facility] Comment on above: Performed By: #### L [id number] #### [facility] (DEFAULT) [address] [address] Segs + Bands Auto 52.6 % Normal [facility] Comment on above: Performed By: #### L [id number] #### [facility] (DEFAULT) [address] [address] Segs + Bands,Absolute Auto 3.86 K/uL Normal 1.57-6.19 [facility] Comment on above: Performed By: #### L [id number] #### [facility] (DEFAULT) [address] [address] WBC (Bld) [#/Vol] 7.35 10*3/uL Normal 3.73-10.10 [facility] Comment on above: Performed By: #### L [id number] #### U [facility] (DEFAULT) [address] [place] [id number] [facility] METABOLIC PANE [facility] 05-26-2024 Albumin [Mass/Vol] 4.1 g/dL 3.5 - 5.0 g/dL [facility] ALP [Catalytic activity/Vol] 83 U/L 32 - 126 U/L [facility] ALT [Catalytic activity/Vol] 26 U/L 10 - 52 U/L [facility] Anion gap [Moles/Vol] 11 mmol/L 7 - 17 mmol/L [facility] AST [Catalytic activity/Vol] 14 U/L 10 - 39 U/L [facility] Bilirubin [Mass/Vol] 0.5 mg/dL NINF - 1.5 mg/dL [facility] Calcium [Mass/Vol] 9.1 mg/dL 8.6 - 10. 5 mg/dL [facility] Chloride [Moles/Vol] 104 mmol/L 98 - 108 mmol/L [facility] CO2 [Moles/Vol] 28 mmol/L 21 - 31 mmol/L [facility] Creatinine [Mass/Vol] 1.00 mg/dL 0.70 - 1.30 mg/dL [facility] eGFR, CKD-EPI, Male - PINF [facility] Comment on above: Reported eGFR is bas ed on the CKD-EPI 2020 equation using creatinine, age, and sex. Glucose [Mass/Vol] 88 mg/dL 70 - 99 mg/dL [facility] Osmolality Calc [Osmolality] 289 [facility] Potassium [Moles/Vol] 3.7 mmol/L 3.5 - 5.0 mmol/L [facility] Protein [Mass/Vol] 6.9 g/dL 6.4 - 8.3 g/dL [facility] Sodium [Moles/Vol] 139 mmol/L 135 - 145 mmol/L [facility] Urea nitrogen [Mass/Vol] 12 mg/dL 7 - 25 mg/dL [facility] Urea nitrogen/Creatinine [Mass ratio] 12 mg/mg [facility] Albumin [Mass/Vol] 4.1 g/dL Normal 3.5-5.0 [facility] Comment on above: Performed By: #### C MPN #### [facility] (DEFAULT) [address] [place] [address] ALP [Catalytic activity/Vol] 83 U/L Normal 32-126 [facility] Comment on above: Performed By: #### C MPN #### [facility] (DEFAULT) [address] [place] [address] ALT [Catalytic activity/Vol] 26 U/L Normal 10-52 [facility] Comment on above: Performed By: #### C MPN #### [facility] (DEFAULT) [address] [place] [address] Anion gap [Moles/Vol] 11 mmol/L Normal 7-17 [facility] Comment on above: Performed By: #### C MPN #### [facility] (DEFAULT) [address] [place] [address] AST [Catalytic activity/Vol] 14 U/L Normal 10-39 [facility] Comment on above: Performed By: #### C MPN #### [facility] (DEFAULT) [address] [place] [address] Bilirubin [Mass/Vol] 0.5 mg/dL Normal <1.5 [facility] Comment on above: Performed By: #### C MPN #### [facility] (DEFAULT) [address] [place] [address] Calcium [Mass/Vol] 9.1 mg/dL Normal 8.6-10.5 [facility] Comment on above: Performed By: #### C MPN #### [facility] (DEFAULT) [address] [place] [address] Chloride [Moles/Vol] 104 mmol/L Normal 98-108 [facility] Comment on above: Performed By: #### C MPN #### [facility] (DEFAULT) [address] [place] [address] CO2 [Moles/Vol] 28 mmol/L Normal 21-31 [facility] Comment on above: Performed By: #### C MPN #### [facility] (DEFAULT) [address] [place] [address] Creatinine [Mass/Vol] 1.00 mg/dL Normal 0.70-1.30 [facility] Comment on above: Performed By: #### C MPN #### [facility] (DEFAULT) [address] [place] [address] eGFR, CKD-EPI, Male > Normal >=60 [facility] Comment on above: Result Comment: Repo rted eGFR is based on the CKD-EPI 2020 equation using creatinine, age, and sex. Performed By: #### C MPN #### [facility] (DEFAULT) [address] [place] [address] Glucose [Mass/Vol] 88 mg/dL Normal 70-99 [facility] Comment on above: Performed By: #### C MPN #### [facility] (DEFAULT) [address] [place] [address] Osmolality [Osmolality] 289 mosm/kg Normal 278-305 [facility] Comment on above: Performed By: #### C MPN #### [facility] (DEFAULT) [address] [place] [address] Potassium [Moles/Vol] 3.7 mmol/L Normal 3.5-5.0 [facility] Comment on above: Performed By: #### C MPN #### [facility] (DEFAULT) [address] [place] [address] Protein [Mass/Vol] 6.9 g/dL Normal 6.4-8.3 [facility] Comment on above: Performed By: #### C MPN #### [facility] (DEFAULT) [address] [place] [address] Sodium [Moles/Vol] 139 mmol/L Normal 135-145 [facility] Comment on above: Performed By: #### C MPN #### [facility] (DEFAULT) [address] [place] [address] Urea nitrogen [Mass/Vol] 12 mg/dL Normal 7-25 [facility] Comment on above: Performed By: #### C MPN #### [facility] (DEFAULT) [address] [place] [address] Urea nitrogen/Creatinine [Mass ratio] 12 mg/mg Normal [facility] Comment on above: Performed By: #### C MPN #### [facility] (DEFAULT) [address] [place] [address] FUNGUS CULTUREon 05-26-2024 Bacteria identified Cx Nom (Unsp spec) NO GROWTH DAY 28 OF 28 Normal [facility] Comment on above: Performed By: #### F UN #### [facility] (DEFAULT) [address] [place] [address] SEDIMENTATION RATE, AUTOMATE Don 05-26-2024 ESR (Bld) [Velocity] 13 mm/h [facility] Interpretation and review of laboratory results Normal [facility] ESR Westergren 13 mm/hr Normal <15 [facility] Comment on above: Performed By: #### E SR #### [facility] (DEFAULT) [address] [place] [address] C-Reactive Proteinon 024 CRP [Mass/Vol] 61.0 mg/L High 0.0-5.0 [facility] Comment on above: Performed By: #### D DANIELLE, CRP, MG, CDP, CP #### [facility] [address] [place] [address] [employer] Installer [employer]per: Dequan Lewis MD CBC with Diffon 05-25-2024 Abs. Basophil 0.06 k/uL Normal 0.00-0.20 [facility] Comment on above: Performed By: #### D DANIELLE, CRP, MG, CDP, CP #### [address] [place], [facility]83 [employer]: Dequan Lewis MD Abs.Imm.Granulocyte <0.03 Normal 0.00-0.30 [facility] Comment on above: Performed By: #### D DANIELLE, CRP, MG, CDP, CP #### [address] [place], [place] [address] [employer] Install[employer]per: Dequan Lewis MD Abs.Neutrophil (Seg) 4.56 k/uL Normal 1.50-8.10 [facility] Comment on above: Performed By: #### D DANIELLE, CRP, MG, CDP, CP #### [address] [place] [id number] [employer]per: Dequan Lewis MD Basophils/100 WBC (Bld) 1 % Normal 0-2 [facility] Comment on above: Performed By: #### D DANIELLE, CRP, MG, CDP, CP #### [address] [place], [facility]83 [employer]per: Dequan Lewis MD Eosinophils (Bld) [#/Vol] 0.23 10*3/uL Normal 0.00-0.44 [facility] Comment on above: Performed By: #### D DANIELLE, CRP, MG, CDP, CP #### [address] [place], [facility]83 [employer] Helper: Dequan Lewis MD Eosinophils/100 WBC (Bld) 3 % Normal 1-4 [facility] Comment on above: Performed By: #### D DANIELLE, CRP, MG, CDP, CP #### [address] [place], [facility]83 [employer]per: Dequan Lewis MD Erythrocyte distribution width (RBC) [Ratio] 12.1 % Normal 11.8-14.4 [facility] Comment on above: Performed By: #### D DANIELLE, CRP, MG, CDP, CP #### [address] [place], [place] [id number] [employer]: Dequan Lewis MD Hematocrit (Bld) [Volume fraction] 42.5 % Normal 40.7-50.3 [facility] Comment on above: Performed By: #### D DANIELLE, CRP, MG, CDP, CP #### [address] [place], [facility]83 [employer] Install[employer] Helper: Dequan Lewis MD Hemoglobin (Bld) [Mass/Vol] 14.4 g/dL Normal 13.0-17.0 [facility] Comment on above: Performed By: #### D DANIELLE, CRP, MG, CDP, CP #### [address] [place] [id number] [employer]per: Dequan Lewis MD Immature granulocytes/100 WBC (Bld) 0 % Normal 0 [facility] Comment on above: Performed By: #### D DANIELLE, CRP, MG, CDP, CP #### [address] [place], [facility]83 [employer] Install[employer] Helper: Dequan Lewis MD Lymphocytes (Bld) [#/Vol] 1.82 10*3/uL Normal 1.10-3.70 [facility] Comment on above: Performed By: #### D DANIELLE, CRP, MG, CDP, CP #### [address] [place], [facility]83 [employer] Installer Helper: Dequan Lewis MD Lymphocytes/100 WBC (Bld) 24 % Normal 24-43 [facility] Comment on above: Performed By: #### D DANIELLE, CRP, MG, CDP, CP #### [address] [place], [place] [id number] [employer]per: Dequan Lewis MD MCH (RBC) [Entitic mass] 29.9 pg Normal 25.2-33.5 [facility] Comment on above: Performed By: #### D DANIELLE, CRP, MG, CDP, CP #### [address] [place], [facility]83 [employer] Installer Helper: Dequan Lewis MD MCHC (RBC) [Mass/Vol] 33.9 g/dL Normal 28.4-34.8 [facility] Comment on above: Performed By: #### D DANIELLE, CRP, MG, CDP, CP #### [address] [place], [place] [id number] [employer]per: Dequan Lewis MD MCV (RBC) [Entitic vol] 88.2 fL Normal 82.6-102.9 [facility] Comment on above: Performed By: #### D DANIELLE, CRP, MG, CDP, CP #### [address] [place], [facility]83 [employer] Installer Helper: Dequan Lewis MD Monocytes (Bld) [#/Vol] 0.90 10*3/uL Normal 0.10-1.20 [facility] Comment on above: Performed By: #### D DANIELLE, CRP, MG, CDP, CP #### [address] [place], [place] [id number] [employer]per: Dequan Lewis MD Monocytes/100 WBC (Bld) 12 % Normal 3-12 [facility] Comment on above: Performed By: #### D DANIELLE, CRP, MG, CDP, CP #### [address] [place], [place] [id number] [employer]per: Dequan Lewis MD Neutrophil (Seg) 60 % Normal 36-65 [facility] Comment on above: Performed By: #### D DANIELLE, CRP, MG, CDP, CP #### [address] [place] [address] [employer] Installer Helper: Dequan Lewis MD NRBC Automated 0.0 per 100 WBC Normal 0.0 [facility] Comment on above: Performed By: #### D DANIELLE, CRP, MG, CDP, CP #### [address] [place], [facility]83 [employer] Installer Helper: Dequan Lewis MD Platelet mean volume (Bld) [Entitic vol] 9.3 fL Normal 8.1-13.5 [facility] Comment on above: Performed By: #### D DANIELLE, CRP, MG, CDP, CP #### [address] [place], [facility]83 [employer] Installer Helper: Dequan Lewis MD Platelets (Bld) [#/Vol] 215 10*3/uL Normal 138-453 [facility] Comment on above: Performed By: #### D DANIELLE, CRP, MG, CDP, CP #### [address] [place], [facility]83 [employer] Installer Helper: Dequan Lewis MD RBC (Bld) [#/Vol] 4.82 10*6/uL Normal 4.21-5.77 [facility] Comment on above: Performed By: #### D DANIELLE, CRP, MG, CDP, CP #### [address] [place], [facility]83 [employer] Installer Helper: Dequan Lewis MD WBC (Bld) [#/Vol] 7.6 10*3/uL Normal 3.5-11.3 [facility] Comment on above: Performed By: #### D DANIELLE, CRP, MG, CDP, CP #### [address] [place], [facility]83 [employer] Installer Helper: Dequan Lewis MD CT RADIUS ULNA LEFT [...] Lauro Velázquez MD 05/25/24 Final result Normal [facility] Comp Metabolic Profon 2023 Albumin [Mass/Vol] 3.8 g/dL Normal 3.5-5.2 [facility] Comment on above: Performed By: #### D DANIELLE, CRP, MG, CDP, CP #### [facility] [address] [place] [address] Television Installer Helper: Dequan Lewis MD Albumin/Glob Ratio 1.2 Normal 1.0-2.5 [facility] Comment on above: Performed By: #### D DANIELLE, CRP, MG, CDP, CP #### [facility] [address] [place] [address] Television Installer Helper: Dequan Lewis MD Alkaline Phos 93 U/L Normal 40-129 [facility] Comment on above: Performed By: #### D DANIELLE, CRP, MG, CDP, CP #### [facility] [address] [place] [address] Television Installer Helper: Dequan Lewis MD ALT [Catalytic activity/Vol] 28 U/L Normal 10-50 [facility] Comment on above: Performed By: #### D DANIELLE, CRP, MG, CDP, CP #### [facility] [address] [place] [address] Television Installer Helper: Dequan Lewis MD Anion gap [Moles/Vol] 9 mmol/L Normal 9-16 [facility] Comment on above: Performed By: #### D DANIELLE, CRP, MG, CDP, CP #### [facility] [address] [place] [address] Television Installer Helper: Dequan Lewis MD AST [Catalytic activity/Vol] 17 U/L Normal 10-50 [facility] Comment on above: Performed By: #### D DANIELLE, CRP, MG, CDP, CP #### [facility] [address] [place] [address] Television Installer Helper: Dequan Lewis MD Bilirubin [Mass/Vol] 0.7 mg/dL Normal 0.00-1.20 [facility] Comment on above: Performed By: #### D DANIELLE, CRP, MG, CDP, CP #### [facility] [address] [place] [address] Television Installer Helper: Dequan Lewis MD BUN/CRE Ratio 11 Normal 9-20 [facility] Comment on above: Performed By: #### D DANIELLE, CRP, MG, CDP, CP #### [facility] [address] [place] [address] Television Installer Helper: Dequan Lewis MD Calcium [Mass/Vol] 9.5 mg/dL Normal 8.6-10.4 [facility] Comment on above: Performed By: #### D DANIELLE, CRP, MG, CDP, CP #### [facility] [address] [place] [address] Television Installer Helper: Dequan Lewis MD Chloride [Moles/Vol] 103 mmol/L Normal 98-107 [facility] Comment on above: Performed By: #### D DANIELLE, CRP, MG, CDP, CP #### [facility] [address] [place] [address] [employer] Installer Helper: Dequan Lewis MD CO2 [Moles/Vol] 27 mmol/L Normal 20-31 [facility] Comment on above: Performed By: #### D DANIELLE, CRP, MG, CDP, CP #### [facility] [address] [place] [address] Television Installer Helper: Dequan Lewis MD Creatinine [Mass/Vol] 1.0 mg/dL Normal 0.70-1.20 [facility] Comment on above: Performed By: #### D DANIELLE, CRP, MG, CDP, CP #### [facility] [address] [place] [address] Television Installer Helper: Dequan Lewis MD GFR/1.73 sq M.predicted among non-blacks MDRD (S/P/Bld) [Vol rate/Area] mL/min/{1.73_m2} Normal >60 [facility] Comment on above: Result Comment: These results [...] D DANIELLE, CRP, MG, CDP, CP #### [facility] [address] [place] [address] [place] [place], [place] [id number] Television Installer Helper: Dequan Lewis MD Glucose [Mass/Vol] 88 mg/dL Normal 74-99 [facility] Comment on above: Performed By: #### D DANIELLE, CRP, MG, CDP, CP #### [facility] [address] [place] [address] [place], [place] [id number] Television Installer Helper: Dequan Lewis MD Potassium [Moles/Vol] 4.1 mmol/L Normal 3.7-5.3 [facility] Comment on above: Performed By: #### D DANIELLE, CRP, MG, CDP, CP #### [address] [place] [address] Television Installer Helper: Dequan Lewis MD Protein [Mass/Vol] 6.9 g/dL Normal 6.6-8.7 [facility] Comment on above: Performed By: #### D DANIELLE, CRP, MG, CDP, CP #### [address] [place], [place] [id number] Television Installer Helper: Dequan Lewis MD Sodium [Moles/Vol] 139 mmol/L Normal 136-145 [facility] Comment on above: Performed By: #### D DANIELLE, CRP, MG, CDP, CP #### [address] [place], [place] [id number] Television Installer Helper: Dequan Lewis MD Urea nitrogen [Mass/Vol] 11 mg/dL Normal 6-20 [facility] Comment on above: Performed By: #### D DANIELLE, CRP, MG, CDP, CP #### [facility] [address] [place] [address] [place] [address] Television Installer Helper: Dequan Lewis MD D-Dimer Teston 05-25-2024 D-Dimer Test <0.27 Normal 0.00-0.59 [facility] Comment on above: Result Comment: When combined [...] D DANIELLE, CRP, MG, CDP, CP #### [address] [place] [address] Television Installer Helper: Dequan Lewis MD Lactic Acidon 3 Lactate [Moles/Vol] 0.7 mmol/L Normal 0.5-2.2 [facility] Comment on above: Performed By: #### L ACTIC #### [address] [place] [address] Television Installer Helper: Dequan Lewis MD Magnesiumon Magnesium [Mass/Vol] 1.8 mg/dL Normal 1.6-2.6 [facility] Comment on above: Performed By: #### D DANIELLE, CRP, MG, CDP, CP #### [address] [place] [address] Television Installer Helper: Dequan Lewis MD XR WRIST RT MIN [...] by: URI CHA Date: 2022-12-28 16:47 Normal [place] Vital Signs Date Time Vital Sign Value Performing Clinician Facility 09-02-2024 09:59-0500 Body height 189.23 cm [facility] 09-02-2024 09:59-0500 Body mass index (BMI) [Ratio] 25.5 kg/m2 [facility] 09-02-2024 09:59-0500 Body weight 91.62 kg [facility] 09-02-2024 09:59-0500 Diastolic blood pressure 72 mm[Hg] [facility] 09-02-2024 09:59-0500 Heart rate 74 /min [facility] 09-02-2024 09:59-0500 Systolic blood pressure 106 mm[Hg] [facility] 08-08-2024 09:19-0500 Body height 189.23 cm [facility] 08-08-2024 09:19-0500 Body mass index (BMI) [Ratio] 25.8 kg/m2 [facility] 08-08-2024 09:19-0500 Body weight 92.53 kg [facility] 08-08-2024 09:19-0500 Diastolic blood pressure 70 mm[Hg] [facility] 08-08-2024 09:19-0500 Heart rate 77 /min [facility] 08-08-2024 09:19-0500 Systolic blood pressure 105 mm[Hg] [facility] 06-18-2024 10:15-0500 Body height 189.23 cm [facility] 06-18-2024 10:15-0500 Body mass index (BMI) [Ratio] 19.8 kg/m2 [facility] 06-18-2024 10:15-0500 Body weight 71.21 kg [facility] 06-18-2024 10:15-0500 Diastolic blood pressure 69 mm[Hg] [facility] 06-18-2024 10:15-0500 Heart rate 91 /min [facility] 06-18-2024 10:15-0500 Systolic blood pressure 109 mm[Hg] [facility] 05-28-2024 08:39-0400 Body temperature 97.81 [degF] Jose Luis Pedroza MD Work Phone: [facility] 05-28-2024 08:39-0400 Diastolic blood pressure 69 mm[Hg] Jose Luis Pedroza MD Work Phone: [facility] 05-28-2024 08:39-0400 Heart rate 88 /min Jose Luis Pedroza MD Work Phone: [facility] 05-28-2024 08:39-0400 Respiratory rate 16 /min Jose Luis Pedroza MD Work Phone: [facility] 05-28-2024 08:39-0400 SaO2% (BldA) [Mass fraction] 97 % Jose Luis Pedroza MD Work Phone: [facility] 05-28-2024 08:39-0400 Systolic blood pressure 112 mm[Hg] Jose Luis Pedroza MD Work Phone: [facility] 05-26-2024 00:14-0400 Body height 190.5 cm Jose Luis Pedroza MD Work Phone: [facility] 05-07-2024 14:50-0400 Diastolic blood pressure 56 mm[Hg] Gerardo Feldman MD Work Phone: [facility] 05-07-2024 14:50-0400 Heart rate 72 /min Gerardo Feldman MD Work Phone: [facility] 05-07-2024 14:50-0400 Respiratory rate 16 /min Gerardo Feldman MD Work Phone: [facility] 05-07-2024 14:50-0400 SaO2% (BldA) [Mass fraction] 99 % Gerardo Feldman MD Work Phone: [facility] 05-07-2024 14:50-0400 Systolic blood pressure 114 mm[Hg] Gerardo Feldman MD Work Phone: [facility] 05-07-2024 13:35-0400 Body temperature 100.09 [degF] Gerardo Feldman MD Work Phone: [facility] 05-07-2024 10:00-0400 Body height 190.5 cm Gerardo Feldman MD Work Phone: [facility] 05-07-2024 10:00-0400 Body mass index (BMI) [Ratio] 23.75 kg/m2 Gerardo Feldman MD Work Phone: [facility] 05-07-2024 10:00-0400 Body weight 86.18 kg Gerardo Feldman MD Work Phone: [facility] 03-24-2024 14:00-0400 Diastolic blood pressure 65 mm[Hg] Gerardo Feldman MD Work Phone: [facility] 03-24-2024 14:00-0400 Heart rate 76 /min Gerardo Feldman MD Work Phone: [facility] 03-24-2024 14:00-0400 Respiratory rate 16 /min Gerardo Feldman MD Work Phone: [facility] 03-24-2024 14:00-0400 SaO2% (BldA) [Mass fraction] 100 % Gerardo Feldman MD Work Phone: [facility] 03-24-2024 14:00-0400 Systolic blood pressure 110 mm[Hg] Gerardo Feldman MD Work Phone: [facility] 03-24-2024 13:40-0400 Body temperature 97.81 [degF] Gerardo Feldman MD Work Phone: [facility] 03-24-2024 08:34-0400 Body height 190.5 cm Gerardo Feldman MD Work Phone: [facility] 03-24-2024 08:34-0400 Body mass index (BMI) [Ratio] 23.12 kg/m2 Gerardo Feldman MD Work Phone: [facility] 03-24-2024 08:34-0400 Body weight 83.92 kg Gerardo Feldman MD Work Phone: [facility] 03-04-2024 08:32-0400 Body height 190.5 cm Gerardo Feldman MD Work Phone: [facility] 03-04-2024 08:32-0400 Body mass index (BMI) [Ratio] 23.5 kg/m2 Gerardo Feldman MD Work Phone: [facility] 03-04-2024 08:32-0400 Body weight 85.28 kg Gerardo Feldman MD Work Phone: [facility] Encounters Encounter Date Encounter Type Care Provider Facility Start: 12-15-2024 End: 12-15-2024 ambulatory Narendra STROUDSBURG Facility:[facility] Start: 11-18-2024 ambulatory GERARDO FELDMAN Facility:[facility] Start: 10-21-2024 End: 10-21-2024 ambulatory Nguyen Henson PA-C Facility:[facility] Start: 09-26-2024 End: 09-26-2024 ambulatory Nguyen Henson PA-C Facility:[facility] Start: 09-05-2024 End: 09-05-2024 ambulatory Haroldo Ugarte III, MD Facility:[facility] Start: 09-02-2024 End: 09-02-2024 ambulatory [facility] Work Phone: Start: 09-02-2024 End: 09-02-2024 Patient encounter procedure [facility] Physician [facility] Work Phone: Start: 08-29-2024 End: 08-29-2024 ambulatory Haroldo Ugarte III, MD Facility:[facility] Start: 08-28-2024 End: 08-28-2024 ambulatory Ion Chong MD Facility:[facility] Start: 08-08-2024 End: 08-08-2024 ambulatory [facility] Work Phone: Start: 08-08-2024 End: 08-08-2024 [facility] Work Phone: Start: 07-25-2024 ambulatory [facility] Start: 07-15-2024 Non-patient / Non-visit [facility] Work Phone: Start: 07-08-2024 End: 07-08-2024 ambulatory Nguyen SOTO-Dinesh Facility:[facility] Start: 06-18-2024 End: 06-18-2024 ambulatory [facility] Work Phone: Start: 06-18-2024 End: 06-18-2024 Patient encounter procedure [facility] Work Phone: Start: 05-30-2024 End: 05-30-2024 ambulatory Nguyen SOTO-C Facility:[facility] Start: 05-26-2024 Non-patient / Non-visit [facility] Ever[facility] Work Phone: Start: 05-26-2024 End: 05-28-[address] [facility] Facility:[facility] Start: 05-26-2024 End: 05-28-2024 Evaluation and management of inpatient Jose Luis Pedroza MD Work Phone: [phone] Comment on above: Postoperative infect ion Start: 05-25-2024 End: 05-25-2024 [facility] Start: 05-20-2024 ambulatory ZORA casillasty:[facility] Start: 05-07-2024 End: 05-07-[address] [facility] Facility:[facility] Start: 05-07-2024 End: 05-07-2024 Subsequent hospital visit by physician Gerardo Feldman MD Work Phone: Outpatient Surgery [facility] Comment on above: Exertional compartme nt syndrome of upper extremity, left Start: 05-07-2024 [facility] Start: 04-29-2024 End: 04-29-2024 ambulatory [facility] Facility:[facility] Start: 04-08-2024 ambulatory ZORA gonzalez:[facility] Start: 03-24-2024 End: 03-24-[address] [facility] Facility:[facility] Start: 03-24-2024 End: 03-24-2024 Subsequent hospital visit by physician Gerardo Feldman MD Work Phone: Outpatient Surgery [facility] Comment on above: Exertional compartme nt syndrome of upper extremity, right Start: 03-04-2024 End: 03-04-2024 Office outpatient new 45 minutes Gerardo Feldman MD Work Phone: [facility] [place] Comment on above: Exertional compartme nt syndrome of upper extremity, right (Primary Dx) Start: 01-24-2024 End: 01-24-2024 ambulatory FREDDIE RODGERS Not Available Start: 12-28-2022 End: 12-28-2022 ambulatory EMILY D BARTGIA Facility: Start: 09-13-2021 End: 09-13-2021 ambulatory Dariusz Patrick Other [employer] Other Start: 09-13-2021 Office outpatient vi sit 15 minutes Dariusz Patrick [facility] Procedures Date Procedure Procedure Detail Performing Clinician Start: 05-28-2024 CBC AND ELECTRONIC DIFF Nba Hyman MD Work Phone: Start: 05-28-2024 Complete blood count with white cell differential, automated Nba Hyman MD Work Phone: Start: 05-28-2024 Creatinine blood Hiram Hyman MD Work Phone: Start: 05-27-2024 Drug screen quantita tive vancomycin Zora Lainez [facility] Work Phone: Start: 05-27-2024 CBC AND ELECTRONIC [...] count with white cell differential, automated [facility] [place] [facility] Work Phone: Start: 05-26-2024 Comprehensive metabo lic panel [facility] [place] [facility] Work Phone: Plan of Treatment Date Care Activity Detail Author Start: 07-10-2024 Tetanus vaccination TETANUS [facility] Start: 05-20-2024 End: 05-20-2024 Patient encounter procedure 05/20/2024 11:00 AM EDT Office Visit [facility] [place] [address] [facility] [address] [place] [address] Zora Espinoza PA-C [address] [facility] [address] [place] [address] [facility] [place] Start: 05-07-2024 End: 05-07-2024 Dcmprn fasct f/arm&/wrst flxr/xtnsr w/dbrdmt DECOMPRESSION FASCIOTOMY FOREARM HAND WRIST Exertional compartment syndrome of upper extremity, left 05/07/2024 12:14 PM EDT [facility] Start: 04-06-2024 COVID-19 VACCINE () COVID-19 VACCINE () [facility] Start: 04-06-2024 Influenza vaccination INFLUENZA VACC INE (#1) [facility] Start: 04-04-2024 End: 04-04-2024 Patient encounter procedure 04/04/2024 9:20 AM EDT Office Visit [facility] [place] [address] [facility] [address] [place] [phone] Zora Espinoza PA-C [address] [facility] [address] [place] [phone] [facility] [place] Start: 03-24-2024 Subsequent hospital visit by physician 03/24/2024 Hospital Encounter Outpatient Surgery [facility] [address] [address] Gerardo Feldman MD [address] [facility] [address] [place] [phone] Exertional compartment syndrome of upper extremity, right Outpatient Surgery [facility] Comment on above: Exertional compartme nt syndrome of upper extremity, right Start: 03-24-2024 End: 03-24-2024 Dcmprn fasct f/arm&/wrst flxr&xtnsr dbrdmt DECOMPRESSION FASCIOTOMY FOREARM HAND WRIST Exertional compartment syndrome of upper extremity, right 03/24/2024 12:18 PM EDT [facility] Start: 2024 End: 2024 ambulatory 2024 3:30 PM EDT Pre-Operative Nurse Assessment Telehealth Pre Procedure [place] [address] [place] [address] Aurelia Mendez, DOMINIC Telehealth Pre Procedure Preparation Start: 04-06-2023 COVID-19 VACCINE ( season) COVID-19 VACCINE ( season) [facility] Start: 2017 HIV screening HIV SCREENING DISCUSSI ON [facility] Start: 2002 Hepatitis C screening HEPATITI S C VIRUS SCREENING [facility] ANAEROBE CULTURE ANAEROBE CULTUR E Microbiology STAT 05/26/2024 2:06 AM EDT [facility] Work Phone: Bacteria identified in Unspecified specimen by Culture BACTERIAL CULTURE AND DIRECT SMEAR, LESION, TISSUE, DEVICE Microbiology STAT 05/26/2024 2:06 AM EDT [facility] Dcmprn fasct f/arm&/wrst flxr&xtnsr dbrdmt DECOMPRESSION FASCIOTOMY FOREARM HAND WRIST Exertional compartment syndrome of upper extremity, right [facility] Dcmprn fasct f/arm&/wrst flxr&xtnsr dbrdmt DECOMPRESSION FASCIOTOMY FOREARM HAND WRIST Exertional compartment syndrome of upper extremity, right [facility] Fungus identified in Unspecified specimen by Culture FUNGUS CULTURE Microbiology STAT 05/26/2024 2:06 AM EDT [facility] End: 03-24-2024 US Unspecified body region US IMAGING [facility] Imaging Routine One Time for 1 Occurrences starting 03/24/2024 until 03/24/2024 [facility] Work Phone: Comment on above: One Time for 1 Occur rences starting 03/24/2024 until 03/24/2024 End: 05-07-2024 US Unspecified body region US IMAGING [facility] Imaging Routine One Time for 1 Occurrences starting 05/07/2024 until 05/07/2024 [facility] Work Phone: Comment on above: One Time for 1 Occur rences starting 05/07/2024 until 05/07/2024 Immunizations Immunization Date Immunization Notes Care Provider Alexx gonzalez 07-10-2014 influenza virus vaccine, unspecified formulation Gerardo Feldman MD Work Phone: [facility] Payers Date Payer Category Payer [facility] [id number] 2022 Unknown [id number] 2002 Unknown [id number] [id number] 2002 Unknown [id number] 2.16.840.1.876243.3.579.2.1259 2002 Unknown [id number] 2.16.840.1.817190.3.579.2.173 2002 Unknown [id number] 2.16.840.1.419416.3.579.2.196 2002 Unknown [id number] 2.16.840.1.161636.3.579.2.196 2002 Unknown [id number] 2.16.840.1.948894.3.579.2.196 2002 Unknown [id number] 2.16.840.1.892456.3.579.2.196 2002 Unknown [id number] 2.16.840.1.436934.3.579.2.196 2002 Unknown [id number] 2.16.840.1.372126.3.579.2.196 2002 Unknown [id number] 2.16.840.1.374338.3.579.2.196 2002 Unknown [id number] 2.16.840.1.766313.3.579.2.196 2002 Unknown [id number] 2.16.840.1.333368.3.579.2.196 2002 Unknown [id number] 2.16.840.1.120355.3.579.2.594 2002 Unknown [id number] 2.16.840.1.696440.3.579.2.594 2002 Unknown [id number] 2.16.840.1.321286.3.579.2.594 2002 Unknown [id number] 2.16.840.1.227560.3.579.2.594 2002 Unknown [id number] 2.16.840.1.649985.3.579.2.594 2002 Unknown [id number] 2.16.840.1.422261.3.579.2.594 1959 Private Health Insurance [id number] 1959 Unknown [id number] Unknown [id number] 2.16. [id number] Unknown [place] [employer] [id number] Unknown [place] [employer] [id number] Social History Date Type Detail Facility Start: 03-24-2024 End: 05-07-2024 Sex Assigned At [facility] [employer] Other Tobacco smoking status LAIS Tobacco smoking consumption unknown [facility] Start: 2002 Sex assigned at Not on file [facility] Start: 2024 End: 06-18-2024 Tobacco smoking status NHIS Never smoked tobacco [facility] Start: 2024 Tobacco use and exposure Smokeless tobacco non-user [facility] Start: 03-24-2024 End: 05-26-2024 Alcoholic beverage intake Current drinker of alcohol (finding) [facility] Start: 03-24-2024 End: 05-07-2024 Alcoholic beverage intake [facility] Start: 04-09-2024 Gender identity Identifies as male gender (finding) [facility] Start: 06-18-2024 End: 09-02-2024 Sex Male (finding) [facility] Start: 2002 Sex Assigned At Male [facility] Clinical Notes 09-13-2021 to 07-25-2024 Note Date & Type Note Facility 07-25-2024 Note [facility] Note Reason for cardiology consult: Syncope Chief Complaint: Syncope HPI: Clover Jean is a 24 y.o. male without prior [...] had A-fib. His paternal grandfather due to [place] at age 76 Cardiology ROS: GENERAL: Denies [...] At this poi (more content not included)... [facility] 06-18-2024 Evaluation note Diagnosis Onset Date Resolution Syncope and collapse acute Novjoey mbviviana 2023 9:51am GERD (gastroesophageal reflux disease) acute August 08 9:14am [facility] Work Phone: [phone]) 758-860510-23-2024 Miscellaneous Notes* Nursing Notes - Jud Caldera [...] 05/26/2024 6:43 AM EDT On admission to [facility], from ED a dual RN initial assessment of skin condition was performed by DOMINIC Mendez and Jazmine Sandoval RN. Skin Assessment: Skin not within defined limits. - Wound(s) identified: Yes LDA Added:No LUE cellulitis I&D performed at bedside in ED, transferred to [facility] wrapped in angela wrap. No other wounds identified. Sonal Gilliland RN [facility]* Nursing Notes - Jud Caldera [...] walked down to ride with mother andbelongings. [facility]10-22-2024 History of Present illness Narrative* Tonia Clemons [facility] - 05/27/2024 5:47 PM EDT Department of Pharmacy Pharmacokinetics Progress Note Patient: Clover Jean Room/Bed: [facility] Assessment and Plan: Based upon [...] further questions. Name: Tonia Clemons RPH Phone: [phone] Date/Time: 05/27/2024 5:47 PM * Pollo Mota, DO - 05/27/2024 11:34 AM EDT Images [...] 4. No acute osseous abnormality. ASSESSMENT: Clover Fidencio is a 24 yo male with PMH [...] the ID Team 1 pager found in S5 Techa below. The ID Team pagers are available - Sunday through Sunday from 7:00 am to 06:00 pm. For emergent or after hour issues, please call the on-call ID Fellow pager. [facility] - [facility] Infectious Disease - Pollo Mota DO Infectious Disease Fellow PGY-4 For urgent calls overnight or during the weekend, please page IM Consult Service Infectious Diseases on webSolta Medical ID Staff I have discussed and examined [...] of Medical Record Information Source Name/Contact: Clover Hernandezt Demographics Verified and Updated: Yes Has the patient been admitted to any hospital in the last 30 days?: No Advanced Care Planning Has the patient completed Advance Directives?: Not Completed Legal Next of Kin Does the patient have a Guardian?: No Spouse: No Adult Child(eliecer), List All Adult Children: No Parent(s) - List All Living Parents: Yes Name and Contact information: Courtney Jean [phone] Would you like to add additional parents?: [...] Is the patient from a facility or residential?: No Patient lives with: Parent(s), Sibling(s) Living [...] patient on Anticoagulation? : No [id number] [place] [address] - [address] [facility] [address] [address] Health Information Specialist Does the patient or sales representative advertising express financial concerns? : No Employed?: Yes Coping/Stress Concerns about patient s coping and stress?: No Concerns about patient s caregiver s coping and stress?: No Values and Beliefs Cultural or islam practices that may impact discharge planning and/or medical care?: No Initial Discharge Planning Expected Discharge Disposition: Home with Home Health Transportation Available for Discharge: Family or Friend Anticipated DME: none Anticipated Services at Discharge: [facility] Patient Assessment Completed: Initial Expected Discharge Date: 05/29/2024 Discharge Planning Summary Patient reports living independently with parents and sibling in a 2 level home with a second floorset-up and 5 steps to enter. Mother and patient expressed interest in a couple of home health visits to instruct family in dressing and packing changes. Discussed referral process with the patient (and/or sales representative advertising). They are agreeable to have the referral for home health initiated. Care Management Plan Discharge home with home health services and assistance from family as needed. corporate training manager to continue ongoing assessment of potential needs and/or services as patient progresses. Will assist with care coordination and discharge planning as needed. * Ashwin Barnett MD - 05/27/2024 5:55 AM EDT ORTHOPAEDIC SURGERY Progress Note Clover Jean is a 24 y.o. year old male [...] (05/27 44) Na/K+/Phos/Mg/Ca: 139/3.9/--/--/-- (05/27 44) Bun/Creat/Cl/CO2/Glucose: 8/./// (05/27 44) Physical Exam Left UE: Inspection: [...] (05/27 44) Na/K+/Phos/Mg/Ca: 139/3.9/--/--/-- (05/27 44) Bun/Creat/Cl/CO2/Glucose: 8/./106/24/101 (05/27 44) IMAGING CT L forearm (prior to I&D) with superficial volar abscess Assessment Clover A Fidencio is a 24 y.o. male with recent volar fasciotomy release with Dr. Feldman 05/07/24 presenting with superficial abscess of the forearm. Bedside I&D performed and cultures sent, now growingCs Plan Activity: PT/OT Weight Bearing Status: WBAT [...] AM EDT ORTHOPAEDIC SURGERY Progress Note Clover Jean is a 24 y.o. year old male [...] (05/26 105) Na/K+/Phos/Mg/Ca: 139/3.7/--/--/9.1 (05/26 105) Bun/Creat/Cl/CO2/Glucose: 12./ (05/26 105) Physical Exam Left UE: Inspection: [...] forearm with superficial volar abscess Assessment Clover A Fidencio is a 24 y.o. male with recent [...] Surgery Resident, PGY-2 [phone] * Vinita Acharya [facility] - 05/26/2024 2:15 AM EDT Department of Pharmacy Outside Facility Transfer Note Patient: Clover Jean Room/Bed: E001/E001 Patient has transferred from the Emergency Department at [facility] . I have reviewed records from the outside hospital available in Care Everywhere and confirmed the following medicationswere received by the patient prior to arrival at [facility]: Antimicrobials: Vancomycin 1500 mg on 05/25 @1705 Please feel free to contact me with any further questions. Name: Vinita Acharya [facility] Phone #: [phone] Date/Time: 05/26/2024 2:15 AM documented in this encounterMercy [facility]10-22-[facility]24 Hospital course Narrative* Ashwin Barnett MD - 05/27/2024 5:37 PM EDT Discharge Summary Name: Clover Jean Age: 24 y.o. Birthday: 2000 Admit Date: 05/26/2024 12:18 AM Discharge Date: 05/27/24 Discharge Time: 5:45 PM Discharge Unit: [facility] Admission Information Admitting Physician: Gerardo Feldman [...] known as: ROXICODONE Follow-up: Gerardo Feldman MD [address] [facility] [address] [facility] [phone] Call in 1 week(s) For wound re-check documented in this encounterMercy Health [facility]10-22-2024 Hospital Discharge instructions* Discharge Instructions* Ashwin Barnett MD - 05/27/2024 5:36 PM EDT [facility] 1. PAIN CONTROL Prescription Medications: Over [...] your doctor s office during office hours. [facility] [address] [facility], [address] [place] [address] Phone: [phone]). If after hours, call or the hospital contact acid plant operator at and ask for the HandResident furs salesperson or go to your local or [facility] Emergency room. documented in this encounterMercy Health [facility]10-21-2024 Consult note* Pollo Thornton Nakul, DO - 05/26/2024 3:17 PM EDTAssociated Order(s): IP CONSULT TO INFECTIOUS DISEASE Images from the original note were not included. Infectious Diseases Team 1 Consultation History and Physical REQUESTING PHYSICIAN: Gerardo Feldman MD REASON FOR CONSULTATION: L forearm abscess s/p I&D and cultures sent ANTIMICROBIALS: Vancomycin Zosyn HISTORY OF PRESENT ILLNESS: Clover Jean is a 24 y.o. male with a PMH of L forearm fasciotomy/compartment release on 05/07/24 and R forearm on 03/24/24 . He presented on 05/26/2024 He initially presented to [facility] due to concern for cellulitis/abscess. He stared noticing his left forearm becoming swollen and red on 05/23. His symptoms continued to get worse so he presented to the [facility] ED for evaluation. While there he was [...] 4. No acute osseous abnormality. ASSESSMENT: Clover Jean is a 24 yo male with PMH [...] the ID Team 1 pager found in [id number] below. The ID Team pagers are available - Sunday through Sunday from 7:00 am to 06:00 pm. For emergent or after hour issues, please call the on-call ID Fellow pager. [facility] Infectious Disease - Pollo Mota DO [...] Attending Physician - Infectious Diseases [phone] [facility]10-21-2024 Consult note* Pollo Mota, - 05/26/2024 3:17 PM EDTAssociated Order(s): IP CONSULT TO INFECTIOUS DISEASE Images from the original note were not included. Infectious Diseases Team 1 Consultation History and Physical REQUESTING PHYSICIAN: Gerardo Feldman MD REASON FOR CONSULTATION: L forearm abscess s/p I&D and cultures sent ANTIMICROBIALS: Vancomycin Zosyn HISTORY OF PRESENT ILLNESS: Clover Jean is a 24 y.o. male with a PMH of L forearm fasciotomy/compartment release on 05/07/24 and R forearm on 03/24/24 . He presented on 05/26/2024 He initially presented to [facility] due to concern for cellulitis/abscess. He stared noticing his left forearm becoming swollen and red on 05/23. His symptoms continued to get worse so he presented to the [facility] ED for evaluation. While there he was [...] Laterality: Left; Surgeon: Gerardo Feldman MD; Location: [facility] OSC PERIOP DECOMPRESSION FASCIOTOMY FOREARM HAND WRIST [...] 4. No acute osseous abnormality. ASSESSMENT: Clover Jean is a 24 yo male with PMH [...] please call the on-call ID Fellow pager. [facility] Infectious Disease - Pollo Mota DO Infectious [...] - Infectious Diseases [phone] documented in this encounterMercy Health [facility]10-21-2024 Nurse Note* Nursing Notes - Sonal Gilliland RN - 05/26/2024 6:43 AM EDT On admission to [facility], from ED a dual RN initial assessment of skin condition was performed by DOMINIC Mendez and Jazmien Sandoval RN. Skin Assessment: Skin not within defined limits. - Wound(s) identified: Yes LDA Added:No LUE cellulitis I&D performed at bedside in ED, transferred to [facility] wrapped in angela wrap. No other wounds identified. Sonal Gilliland RN [facility] Emergency department Note* Felipe Johns RN - 05/26/2024 6:16 AM EDT Report given to Sonal ALFARO for [id number]. [facility] Emergency department Note* Felipe Johns RN - 05/26/2024 6:16 AM EDT Report given to Sonal ALFARO for [id number]. * Pura Willard PA-C - 05/26/2024 12:27 [...] given Vancomycin and advised to come to [facility] for further management. He denies fever, chills, n/v/d, chest pain, SOB No past medical history on file. Past Surgical History: Procedure Laterality Date DECOMPRESSION FASCIOTOMY FOREARM HAND WRIST Left 05/07/2024 Laterality: Left; Surgeon: Gerardo Feldman MD; Location: [facility] PERIOP DECOMPRESSION FASCIOTOMY FOREARM HAND WRIST Right 03/24/2024 Laterality: Right; Surgeon: Gerardo Feldman MD; Location: [facility] No family history on file. Social History [...] Auto 2.14 0.83 - 3.57 K/uL Abs [place] Auto 0.98 (H) 0.24 - 0.93 K/uL [...] syndrome 05/07 and was sent here from [place] for an eval because of the swelling and warmth to it. Denies hot flashes or chills, CP or SOB, n/v/d, also denies numbness tingling or burning in the arms as well. documented in this [facility]10-21-2024 History and physical note* Nba Hyman MD - 05/26/2024 12:53 AM EDT Images from the original note were not included. Hand Surgery Consult Note Consult indication: swelling, cellulitis and abscess to LT forearm s/p Lt forearm fasciotomy/compartment release on 05/07 CC: L arm infection. Assessment & Plan: Assessment: Clover Jean is a 24 y.o. male with recent [...] Patient will be discussed with attending physician furs salesperson in AM. Thank you for allowing Orthopaedic [...] History of Present Illness Clover Anne Marie Jean is a 24 y.o. male , L-hand dominant, with PMHx of L exertional compartment syndrome s/p release 05/07/[address] Feldman who presents to [facility] for postoperative infection to the site. Painful [...] CT L forearm with superficial volar abscess. [facility]10-21-[facility] History and physical note* Nba Hyman MD - 05/26/2024 12:53 AM EDT Images from the original note were not included. Hand Surgery Consult Note Consult indication: swelling, cellulitis and abscess to LT forearm s/p Lt forearm fasciotomy/compartment release on 05/07 CC: L arm infection. Assessment & Plan: Assessment: Clover Jean is a 24 y.o. male with recent [...] Patient will be discussed with attending physician furs salesperson in AM. Thank you for allowing Orthopaedic [...] History of Present Illness Clover Anne Marie Fidencio is a 24 y.o. male , L-hand dominant, with PMHx of L exertional compartment syndrome s/p release 05/07/[address] Feldman who presents to [facility] for postoperative infection to the site. Painful [...] with superficial volar abscess. documented in this encounterMercy Health [facility]10-21-2024 Physician Emergency department Note* Pura Willard PA-C - 05/26/2024 12:27 AM [...] given Vancomycin and advised to come to [facility] for further management. He denies fever, chills, n/v/d, chest pain, SOB No past medical history on file. Past Surgical History: Procedure Laterality Date DECOMPRESSION FASCIOTOMY FOREARM HAND WRIST Left 05/07/2024 Laterality: Left; Surgeon: Gerardo Feldman MD; Location: [facility] PERI DECOMPRESSION FASCIOTOMY FOREARM HAND WRIST Right 03/24/2024 Laterality: Right; Surgeon: Gerardo Feldman MD; Location: [facility] No family history on file. Social History [...] Auto 2.14 0.83 - 3.57 K/uL Abs [place] Auto 0.98 (H) 0.24 - 0.93 K/uL [...] with attending. Pura Willard PA-C 05/26/24 [phone] [facility] Work Phone: [phone] Emergency department Note* Abiodun Allan RN - 05/26/2024 12:15 AM EDT Reporting surgery to left forearm for compartment syndrome 05/07 and was sent here from [place] for an eval because of the swelling and warmth to it. Denies hot flashes or chills, CP or SOB, n/v/d, also denies numbness tingling or burning in the arms as well. [facility]10-02-2024 Miscellaneous Notes* Nursing Notes - Zora Bustamante RN - 05/07/2024 3:00 PM EDT Discharge instructions given to patient and safe mobile lounge driver home SO Jaimee. Patient denies severe [...] and FDS arch Surgeon: Gerardo Feldman MD Pharmacy Technician Infusion: Deborah Zavala resident Anesthesia: general with local [...] MD - 05/07/2024 1:36 PM EDT Clover Jean ([id number]) PRE OPERATIVE DIAGNOSIS Exertional compartment syndrome of upper extremity, left [M79.A12] POST OPERATIVE DIAGNOSIS Exertional compartment syndrome of upper extremity, left [M79.A12] PROCEDURE PERFORMED Procedure(s) (LRB): DECOMPRESSION FASCIOTOMY FOREARM HAND WRIST (Left) PRIMARY CLOSURE Yes INTRAOPERATIVE FINDINGS No significant abnormalities SURGEON Surgeons and Role: * Gerardo Feldman MD - Primary ANESTHESIOLOGIST Anesthesiologist: Lucy Velez MD COLLEGE ATHLETIC DIRECTOR: Abiodun Sierra APRN-COLLEGE ATHLETIC DIRECTOR SURGICAL STAFF Ctrs: Radha Hall RN Scrub Person: Marilynn Mesa Fellow: Jud Velázquez MD COMPLICATIONS None ESTIMATED BLOOD LOSS Minimal SPECIMENS No specimen sent * No specimens in log * Gerardo Feldman MD May 07, 2024 1:36 PM documented in this [facility]OS[facility]-2024 Nurse Note* Nursing Notes - Zora Bustamante RN - 05/07/2024 3:00 PM EDT Discharge instructions given to patient and safe mobile lounge driver home SO Jaimee. Patient denies severe pain or uncontrolled n/v. Vitals WNL. Instructions include follow- up appt, incision care, post-op infection signs, icing, and any/all WB restrictions. All questions answered. Pt assisted getting dressed, all belongings returned, taken to the BR to urinate, and patient taken to car via w/c. [facility]10-02-[facility] Nurse Note* Nursing Notes - Zora [...] fell back to sleep. No orders received. [facility]10-02-2024 Surgery Postoperative evaluation and management note* [...] and FDS arch Surgeon: Gerardo Feldman MD Pharmacy Technician Infusion: Deborah Zavala resident Anesthesia: general with local [...] available throughout the entirety of the case. [facility] Work Phone: [phone]) 983-756510-02-2024 Surgery Postoperative evaluation and management note* Brief Op Note - Gerardo Feldman MD - 05/07/2024 1:36 PM EDT Clover Jean ([id number]) PRE OPERATIVE DIAGNOSIS Exertional compartment syndrome of upper extremity, left [M79.A12] POST OPERATIVE DIAGNOSIS Exertional compartment syndrome of upper extremity, left [M79.A12] PROCEDURE PERFORMED Procedure(s) (LRB): DECOMPRESSION FASCIOTOMY FOREARM HAND WRIST (Left) PRIMARY CLOSURE Yes INTRAOPERATIVE FINDINGS No significant abnormalities SURGEON Surgeons and Role: * Gerardo Feldman MD - Primary ANESTHESIOLOGIST Anesthesiologist: Lucy Velez MD COLLEGE ATHLETIC DIRECTOR: Abiodun Sierra APRN-COLLEGE ATHLETIC DIRECTOR SURGICAL STAFF Ctrs: Radha Hall RN Scrub Person: Marilynn Mesa Fellow: Jud Velázquez MD COMPLICATIONS None ESTIMATED BLOOD LOSS Minimal SPECIMENS No specimen sent * No specimens in log * Gerardo Feldman MD May 07, 2024 1:36 PM [facility]10-02-2024 Hospital Discharge instructions* Discharge Instructions* Jud Velázquez MD - 05/07/2024 11:17 AM EDT [facility] Home Care after Hand or Upper Extremity [...] your doctor s office during office hours. [facility] [address], [address] [place] [address] Phone: [phone]). If after hours, call or the hospital contact acid plant operator at and ask for the HandResident furs salesperson or go to your local or [facility] Emergency room. documented in this encounterMercy Health [facility]10-02-2024 History and physical note* Jud Velázquez MD - 05/07/2024 11:16 AM EDT Hand Surgery History and Physical CC: Left exertional compartment syndrome HPI: Clover Jean is a 24 y.o. male who presents to [facility] [place] for management of left exertional compartment syndrome. [...] Velázquez MD Hand & Orthopaedic Surgery Department [facility]10-02-2024 History and physical note* Jud Velázquez MD - 05/07/2024 11:16 AM EDT Hand Surgery History and Physical CC: Left exertional compartment syndrome HPI: Clover Jean is a 24 y.o. male who presents to [facility] [place] for management of left exertional compartment syndrome. [...] & Orthopaedic Surgery Department documented in this encounterMercy Health [facility]08-19-2024 Surgery Postoperative evaluation and management note* [...] and FDS arch Surgeon: Gerardo Feldman MD Pharmacy Technician Infusion: Deborah Zavala resident Anesthesia: general with local [...] available throughout the entirety of the case. [facility] Work Phone: 1(613) 772-275108-19-2024 Miscellaneous Notes* Op Note - Gerardo Feldman [...] and FDS arch Surgeon: Gerardo Feldman MD Pharmacy Technician Infusion: Deborah Zavala resident Anesthesia: general with local [...] MD - 03/24/2024 1:45 PM EDT Clover Kenney Fidencio ([id number]) PRE OPERATIVE DIAGNOSIS Exertional compartment syndrome of upper extremity, right [M79.A11] POST OPERATIVE DIAGNOSIS Exertional compartment syndrome of upper extremity, right [M79.A11] PROCEDURE PERFORMED Procedure(s) (LRB): DECOMPRESSION FASCIOTOMY FOREARM HAND WRIST (Right) PRIMARY CLOSURE Yes INTRAOPERATIVE FINDINGS No significant abnormalities SURGEON Surgeons and Role: * Gerardo Feldman MD - Primary ANESTHESIOLOGIST Anesthesiologist: Matthew Lara MD COLLEGE ATHLETIC DIRECTOR: Cesar Berrios APRN-COLLEGE ATHLETIC DIRECTOR; Yani Caraballo APRN-ZAINAB SURGICAL STAFF Ctrs: Zoar Cr RN Scrub Person: Jennifre Rodriguez Resident Assisting: Deborah Zavala MD COMPLICATIONS None ESTIMATED BLOOD LOSS Minimal SPECIMENS No specimen sent * No specimens in log * Deborah Zavala MD March 24, 2024 1:45 PM documented in this encounterOSU [facility] Surgery Postoperative evaluation and management note* Brief Op Note - Deborah Zavala MD - 03/24/2024 1:45 PM EDT Clover Jean ([id number]) PRE OPERATIVE DIAGNOSIS Exertional compartment syndrome of upper extremity, right [M79.A11] POST OPERATIVE DIAGNOSIS Exertional compartment syndrome of upper extremity, right [M79.A11] PROCEDURE PERFORMED Procedure(s) (LRB): DECOMPRESSION FASCIOTOMY FOREARM HAND WRIST (Right) PRIMARY CLOSURE Yes INTRAOPERATIVE FINDINGS No significant abnormalities SURGEON Surgeons and Role: * Gerardo Feldman MD - Primary ANESTHESIOLOGIST Anesthesiologist: Matthew Lara MD COLLEGE ATHLETIC DIRECTOR: Cesar Berrios APRN-COLLEGE ATHLETIC DIRECTOR; Yani Caraballo APRN-COLLEGE ATHLETIC DIRECTOR SURGICAL STAFF Ctrs: Zora Cr RN Scrub Person: Jennifer Rodriguez Resident Assisting: Deborah Zavala MD COMPLICATIONS None ESTIMATED BLOOD LOSS Minimal SPECIMENS No specimen sent * No specimens in log * Deborah Zavala MD March 24, 2024 1:45 PM [facility] Nurse Surgical operation note* Zora Cr RN - 03/24/2024 1:44 PM EDT Pt transported to PACU via cart. Report given to DOMINIC Li [facility] Nurse Note* Zora Cr RN - 03/24/2024 1:44 PM EDT Pt transported to PACU via cart. Report given to DOMINIC Li documented in this encounterOSU [facility]08-[facility]-20[facility] History and physical note* Deborah Zavala MD [...] Smoking Status Never I have reviewed Clover Jean's medical, surgical and other pertinent history, and I have updated the medication and allergy information in the computerized patient record. I have examined the patient, reviewed the previous H&P completed on date (03/04/24) and there are no changes. Written consent has been reviewed in the [facility] computerized charting system. Today's surgical history and physical update was completed by Deborah Zavala MD, 03/24/2024, 9:39 AM. [facility]08-19-2024 History and physical note* Deborah Zavala [...] Smoking Status Never I have reviewed Clover Jean's medical, surgical and other pertinent history, and I have updated the medication and allergy information in the computerized patient record. I have examined the patient, reviewed the previous H&P completed on date (03/04/24) and there are no changes. Written consent has been reviewed in the [facility] computerized charting system. Today's surgical history and physical update was completed by Deborah Zavala MD, 03/24/2024, 9:39 AM. documented in this encounterMercy Health [facility]08-18-2024 Hospital Discharge instructions* Discharge Instructions* Deborah Zavala MD - 03/23/2024 8:28 PM EDT [facility] Home Care after Hand or Upper Extremity Surgery 1. PAIN CONTROL Prescription Medications: Oxycodone: this is a narcotic pain medication. It was sent electronically to your pharmacy for you to chicken picker after surgery. You may experience nausea, constipation, [...] your doctor s office during office hours. [address], [address] [place] [address] Phone: [phone]). If after hours, call or the hospital contact acid plant operator at and ask for the HandResident furs salesperson or go to your local or [facility] Emergency room. documented in this encounterMercy Health [facility]07-30-2024 History of Present illness Narrative* Gerardo [...] All questions were answered. documented in this [facility]02-08-2022 Evaluation note * Encounter Date Diagnosis Assessment Notes Treatment Notes Treatment Clinical Notes Sep, Sprain of interphalangeal joint of left little finger, initial encounter (ICD-10 - S63.637A) This appears to be a sprain involving the left small finger. We will begin gentle motion exercise to prevent stiffness. Discussed trinity taping and protection during more strenuous activity. bVisual Other Evaluation note* Diagnosis Exertional compartment syndrome of upper extremity, right- Primary [facility] this encounter [facility]* Diagnosis Post-operative pain- Primary Other acute postoperative pain Exertional compartment syndrome of upper extremity, right documented in this encounter [facility]* Diagnosis Compartment syndrome of left upper extremity, subsequent encounter- Primary documented in this encounter [facility]* Diagnosis Postoperative infection- Primary Other postoperative infection Infection of superficial incisional surgical site after procedure, initial encounter Cellulitis of left forearm Cellulitis and abscess of upper arm and forearm Staphylococcus aureus infection Methicillin susceptible Staphylococcus aureus in conditions classified elsewhere and of unspecified site Cellulitis Cellulitis and abscess of unspecified site documented in this encounter [facility] noteNo assessment information available [facility] Work Phone: Reason for referral (narrative)* Unlisted Procedure Code (Routine) - New Request Specialty Diagnoses / Procedures Referred By Zakiya moraes Referred To Contact Procedures NO MECHANICAL DVT PROPHYLAXIS Gerardo Feldman MD [address] [facility] [address] [place] [address] Referral ID Status Reason Start Date Expiration Date V isits Requested Visits Authorized [id number] New Request 05/26/2024 06/20/2025 1 1 * Unlisted Procedure Code (Routine) - New Request Specialty Diagnoses / Procedures Referred By Zakiya t Referred To Contact Procedures LOW RISK - NO PHARMACOLOGICAL DVT PROPHYLAXIS Gerardo Feldman MD [address] [facility] [address] [place] [address] Referral ID Status Reason Start Date Expiration Date V isits Requested Visits Authorized [id number] New Request 05/26/2024 06/20/2025 1 1 * Unlisted Procedure Code (Routine) - New Request Specialty Diagnoses / Procedures Referred By Contac t Referred To Contact Procedures DVT/VTE RISK ASSESSMENT Gerardo Feldman MD [address] [place] [phone] Referral ID Status Reason Start Date Expiration Date V isits Requested Visits Authorized [id number] New Request 05/26/2024 06/20/2025 1 1 [facility] for visit Narrative* Auth/Cert Specialty Diagnoses / Procedures Referred By Contac t Referred To Contact Diagnoses Exertional compartment syndrome of upper extremity, left Exertional compartment syndrome of upper extremity, left [M79.A12] Procedures IN DCMPRN FASCT F/ARM&/WRST FLXR/XTNSR W/DBRDMT DECOMPRESSION FASCIOTOMY FOREARM HAND WRIST Gerardo Feldman MD [address] [place] [phone] [facility] [address] [place] [address] Referral ID Status Reason Start Date Expiration Date Visits Re quested Visits Authorized [id number] 1 1 [facility] for visit Narrative* Auth/Cert Specialty Diagnoses / Procedures Referred By Contac t Referred To Contact Diagnoses Postoperative infection left arm infection [facility] [address] [place] [address] [facility] [address] [place] [address] Referral ID Status Reason Start Date Expiration Date Visits Re quested Visits Authorized [id number] 1 1 [facility] Summary Purpose Family History No Family History [...] Procedures US IMAGING [facility] Rivera Diaz MD [address] [place] [address] Referral ID Status Reason Start Date Expiration Date V isits Requested Visits Authorized [id number] New Request 05/07/2024 06/01/2025 1 1 Specialty Diagnoses / Procedures Referred By Contac t Referred To Contact Procedures US IMAGING [facility] Christiano Sharp MD [address] [place] [address] Referral ID Status Reason Start Date Expiration Date V isits Requested Visits Authorized [id number] New Request 03/24/2024 04/18/2025 1 1 Chief [...] 2024 9:51am GERD (gastroesophageal reflux disease) J an2024 9:14am Chief Complaint Admit Date Anxiety/Passing out [...] Paresthesia of hand, bilateral Lerner, Clover S, THEOLOGY PROFESSOR [address] [place] [address] [facility] [address] [place] [address] Referral ID Status Reason Start Date Expiration Date V isits Requested Visits Authorized [id number] Pending Review 02/07/2024 03/03/2025 1 1 Specialty Diagnoses / Procedures Referred By Zakiya t Referred To Contact Diagnoses Exertional compartment syndrome of upper extremity, 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, right [M79.A11] Procedures IN DCMPRN FASCT F/ARM&/WRST FLXR&XTNSR DBRDMT DECOMPRESSION FASCIOTOMY FOREARM HAND WRIST Gerardo Feldman MD [address] [facility] [address] [place] [address] [facility] [address] [place] [address] Referral ID Status Reason Start Date Expiration Date Visits Re quested Visits Authorized [id number] 1 1 (unrecognized sect ion and content) No Status Records FoundNo Status Records FoundNo Status Records FoundNo Status Records FoundNo Status Records FoundNo Status Records FoundNo Status Records Found INFORMATION SOURCE (unrecogn ized section and content) DATE CREATED AUTHOR 01/12/2023 [facility] DATE CREATED AUTHOR AUTHOR'S ORGANIZ ATION 01/25/2024 [facility] DATE CREATED AUTHOR AUTHOR'S ORGANIZ ATION 06/05/2024 [facility] DATE CREATED AUTHOR AUTHOR'S ORGANIZ ATION 07/31/2024 [facility] DATE CREATED AUTHOR AUTHOR'S ORGANIZ ATION 10/24/2024 [facility] DATE CREATED AUTHOR AUTHOR'S ORGANIZ ATION 12/16/2024 [facility] DATE CREATED AUTHOR AUTHOR'S ORGANIZ ATION 03/21/2025 [facility] Scheduled Active and Recently Administ ered [...] Use when inserting peripheral IV., Pre-op/Pre-Proc Lidocaine-epinephrine 1%-1:855394 injection (CANCELED) NEEDED, Starting on Sun03/24/24 at [...] 1215 ($$New Bag$$ - Provider: Abiodun Sierra APRN-COLLEGE ATHLETIC DIRECTOR)1337 (Stopped - Provider: Zora Bustamante RN) Continuous Medication Order 05/05/2024 05/06/2024 05/07/2024 Lactated ringers IV solution Intravenous, at 20 mL/hr, CONTINUOUS, Starting on Sun05/07/24 at 0945, Until Sun05/07/24 at 1711, Pre-op/Pre-Proc 1025 ($$New Bag$$ - Provider: Sil Ordoñez RN)1212 (Paused - Provider: MATHEUS Sanford - Comment: Switch to gravity)1213 (Restarted - Provider: MATHEUS Sanford)1308 (Stopped - Provider: MATHEUS Sanford) PRN [...] total of 4mg in PACU., Recovery Lidocaine-epinephrine 1%-1:340227 injection (CANCELED) NEEDED, Starting on Sun05/07/24 at [...] RN) 0147 ($$New Bag$$ - Provider: Geraldine Rucker RN)0751 ($$New Bag$$ - Provider: Jud Caldera RN)1559 [...] Discontinued 0504 ($$New Bag$$ - Provider: Felipe Jhons RN)0556 (Rate/Dose Verify - Provider: Felipe Johns RN)0556 (Stopped - Provider: Felipe Johns RN)0557 (Restarted - Provider: Felipe Johns RN)1616 ($$New Bag$$ - Provider: Jud Caldera, RN) 0547 ($$New Bag$$ - Provider: Geraldine Rucker RN) 0841 (Stopped - Provider: Jud Caldera, RN) Vancomycin HCl in NaCl (Vancocin) 1,250 mg 287.5 ml premade IVPB (CANCELED) 1,250 mg (rounded from 1,293 mg = 15 mg/kg 86.2 kg Order-specific weight), Intravenous, Administer over 2 Hours, EVERY 8 HOURS NON-STANDARD, First dose (after last modification) on Sun05/27/24 at 1800, Until Discontinued 2022 ($$New Bag$$ - Provider: Geraldine Rucker RN - Comment: dose changed/waiting on pharmacy) 0354 ($$New Bag$$ - Provider: Geraldine Rucker RN)0840 (Stopped - Provider: Jud Caldera, DOMINIC) PRN Medication Order 05/26/2024 05/27/2024 05/28/2024 alum/mag [...] (CEPACOL) lozenges may be used interchangeably at [facility]. 1019 (Given - Provider: Jud Caldera RN) [...] effects (RR<10, decrease in level of consciousness). 0901 (Given - Provider: Jud Caldera RN)6 (Given - Provider: Geraldine Rucker RN) 0702 (Given - Provider: Jud Caldera RN)2211 (Given [...] September 02, 2024 End: September 02, 2024 Disposition Clerk Relationship Specialty Start Date End Date Ion Chong MD [address] [place] [address] PCP - General Family Medicine 03/12/24 Disposition Clerk Relationship Specialty Start Date End Date Ion Chong MD [address] [place] [address] PCP - General Family Medicine 03/12/24 Disposition Clerk Relationship Specialty Start Date End Date Ion Chong MD [address] [place] [address] PCP - General Family Medicine 03/12/24 Team [...] BE BASED ON THE PRIMARY CLINICAL RECORDS. [employer] [facility]. provides no warranty or guarantee of the accuracy or completeness of information in this document.
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
== END 2025-04-05 10:05 | disposition home or self-care (01) ==
PROVIDERS: Emergency Provider Emergency Medicine; PCP Family Medicine
DX: S70.02XA Contusion of left hip, initial encounter (principal); S09.90XA Unspecified injury of head, initial encounter; V86.56XA Driver of dirt bike or motor/cross bike injured in nontraffic accident, initial encounter
CPT/HCPCS: 70450; 72192; 99284